=== PATIENT | female | born 1960 | race Caucasian/White ===

== ENCOUNTER → 2018-05-26 15:50 | Outpatient (CLI) | payer OTHER, SELFPAY ==
[2018-05-26 17:33] LABS: Absolute Lymphocyte Count 2.83 X10^3/ul (0.83-4.51); Absolute Neutrophil Count 3.1 X10^3/uL (2.0-7.7); Basophil# 0.04 X10^3/uL; Basophil% 0.6 % (0-1); Eosinophil# 0.22 X10^3/uL; Eosinophils% 3.3 % (0-5); Hematocrit 42.4 % (37-47); Hemoglobin 13.5 g/dl (12.0-15.0); Lymphocyte # 2.83 X10^3/ul (4.0); Lymphocyte % 42.6 % (19-41); Mean Corp Hgb Conc 31.8 g/gl (32-36); Mean Corpuscular Hgb 28.8 pg (27.0-32.0); Mean Corpuscular Volume 90.4 fL (81-99); Mean Platelet Vol. 10.7 fl (6.2-12.0); Monocyte# 0.43 X10^3/uL; Monocyte% 6.5 % (0-10); Neutrophil # 3.12 X10^3/uL (2.7-7.7); Neutrophil % 46.8 % (47-70); Platelet Count 361 K/mm3 (150-450); RBC Distribution Width CV 13.2 % (11.6-14.6); RBC Distribution Width SD 43.1 fl (35.1-43.9); Red Blood Count 4.69 M/mm3 (4.2-5.4); White Blood Count 6.7 K/mm3 (4.4-11.0)
[2018-05-26 17:34] LABS: POSITIVE COUNT NO; POSITIVE DIFFERENTIAL NO; POSITIVE MORPHOLOGY NO
[2018-05-26 17:44] LABS: Anion Gap 9 (5-15); BUN 9 mg/dL (7-18); BUN/Creat Ratio 12.9 RATIO (10-20); Calcium,Total 8.6 mg/dL (8.5-10.1); Chloride 107 mmol/L (98-107); EST Glomerular Filtration Rate 92 mL/min (>60); Est Glom Filt Rate - Afr Amer 111 mL/min (>60); Glucose 114 mg/dL (74-106); Sodium Level 142 mmol/L (136-145); T4 Free Direct 1.33 ng/dL (0.76-1.46); Thyroid Stim Hormone (TSH) 0.26 uIU/mL (0.358-3.74)
== END ==
PROVIDERS: Family Provider Family Medicine; PCP Family Medicine; Visit Provider Family Medicine
DX: E03.9 Hypothyroidism, unspecified (principal); E55.9 Vitamin D deficiency, unspecified; R73.01 Impaired fasting glucose
CPT/HCPCS: 36415; 80048; 82306; 84439; 84443; 85025

== ENCOUNTER → 2018-06-15 15:01 | Outpatient (CLI) | payer OTHER, SELFPAY ==
--- NOTE | 2018-06-15 15:04 | BI_ITS ---
MAMMOGRAPHY - BILATERAL SCREENING REASON FOR EXAM: Female, 58 years old. Routine annual screening examination. PERTINENT HISTORY: Aunt with breast cancer. TECHNIQUE: Digital bilateral breast demian (3D mammographic acquisition) in the CC and MLO projections. 2-D mediolateral oblique (MLO) and craniocaudad (CC) views of both breasts were obtained. CAD: Full Field Digital Mammography with Computer Added Detection was performed. COMPARISON: Comparison is made with prior study dated May 04, 2016 and February 08, 2014. FINDINGS: Breast Composition: There are scattered areas of fibroglandular density. There are no dominant masses or suspicious calcifications. There is a stable 5.4 mm x 5 mm well-defined nodule in the axillary region of the left breast. This most likely represents a small cyst or small lymph node. Stable benign-appearing bilateral axillary lymph nodes. Correlation with ultrasound is recommended. No other significant abnormalities are identified. There has been no significant change since the prior study. BI/SCREENING MAMM (CAD), BILAT IMPRESSION: Stable bilateral screening mammogram. Correlation with ultrasound of the small well-defined nodule in the axillary region of the left breast is recommended for further evaluation. ASSESSMENT CATEGORY: BIRADS Category 6: Known Biopsy-Proven Malignancy - Appropriate Action Should Be Taken. A letter regarding these results will be sent to the patient by the facility within 30 days. Approximately 10% of breast cancers are not detected by mammography. A normal mammogram should not delay biopsy of a clinically suspicious abnormality. [id number] Electronically Signed: Jimbo Blas MD at 8:02 EDT Tel [phone], Service support ,
== END ==
PROVIDERS: Family Provider Family Medicine; PCP Family Medicine; Visit Provider Family Medicine
DX: Z12.31 Encounter for screening mammogram for malignant neoplasm of breast (principal)
CPT/HCPCS: 77063; 77067

== ENCOUNTER → 2018-06-19 15:06 | Outpatient (CLI) | payer OTHER, SELFPAY ==
--- NOTE | 2018-06-19 15:08 | US_ITS ---
STUDY: ULTRASOUND BREAST - LEFT REASON FOR EXAM: Female, 58 years old. Abnormal screening mammogram. TECHNIQUE: Axial and longitudinal images of the LEFT breast were performed with a high resolution ultrasound transducer. COMPARISON: Comparison is made with prior mammogram dated June 15, 2018. FINDINGS: LEFT Breast: The mammographic abnormality corresponds to a 4 mm x 4 mm x 4 mm well-defined hypoechoic nodule with a central echogenic hilum suggestive of a small lymph node. US/Breast Limited Unilateral IMPRESSION: The mammographic abnormality corresponds to a well-defined 4 mm x 4 mm x 4 mm hypoechoic nodule with central area of the increased echotexture suggestive of a small lymph node. ASSESSMENT CATEGORY: BIRADS Category 2: Benign. A letter regarding these results will be sent to the patient by the facility within 30 days. Electronically Signed: Jimbo Blas MD at 15:47 EDT Tel [phone], Service support ,
== END ==
PROVIDERS: Family Provider Family Medicine; PCP Family Medicine; Visit Provider Family Medicine
DX: N63.20 Unspecified lump in the left breast, unspecified quadrant (principal)
CPT/HCPCS: 76642

== ENCOUNTER → 2018-10-06 16:15 | Outpatient (CLI) | payer OTHER, SELFPAY ==
[2018-10-06 18:02] LABS: Absolute Lymphocyte Count 2.84 X10^3/ul (0.83-4.51); Absolute Neutrophil Count 3.9 X10^3/uL (2.0-7.7); Basophil# 0.07 X10^3/uL; Basophil% 0.9 % (0-1); Eosinophil# 0.32 X10^3/uL; Eosinophils% 4.1 % (0-5); Hematocrit 45.1 % (37-47); Hemoglobin 14.8 g/dl (12.0-15.0); Lymphocyte # 2.84 X10^3/ul (4.0); Lymphocyte % 36.6 % (19-41); Mean Corp Hgb Conc 32.8 g/gl (32-36); Mean Corpuscular Hgb 29.1 pg (27.0-32.0); Mean Corpuscular Volume 88.6 fL (81-99); Mean Platelet Vol. 10.7 fl (6.2-12.0); Monocyte# 0.58 X10^3/uL; Monocyte% 7.5 % (0-10); Neutrophil # 3.92 X10^3/uL (2.7-7.7); Neutrophil % 50.4 % (47-70); Platelet Count 402 K/mm3 (150-450); Red Blood Count 5.09 M/mm3 (4.2-5.4); White Blood Count 7.8 K/mm3 (4.4-11.0)
[2018-10-06 18:07] LABS: Hemoglobin A1c 6.5 % (4.2-6.3)
[2018-10-06 18:09] LABS: Anion Gap 10 (5-15); BUN 11 mg/dL (7-18); BUN/Creat Ratio 13.8 RATIO (10-20); Calcium,Total 8.4 mg/dL (8.5-10.1); Chloride 107 mmol/L (98-107); EST Glomerular Filtration Rate 78 mL/min (>60); Est Glom Filt Rate - Afr Amer 95 mL/min (>60); Glucose 108 mg/dL (74-106); Potassium 3.9 mmol/L (3.5-5.1); Sodium Level 142 mmol/L (136-145); T4 Free Direct 1.22 ng/dL (0.76-1.46); Thyroid Stim Hormone (TSH) 0.48 uIU/mL (0.358-3.74)
[2018-10-06 18:16] LABS: POSITIVE COUNT NO; POSITIVE DIFFERENTIAL NO; POSITIVE MORPHOLOGY NO
[2018-10-06 19:21] LABS: Vitamin D,25 Hydroxy 28.1 ng/mL (29.95-100.01)
== END ==
PROVIDERS: Family Provider Family Medicine; PCP Family Medicine; Visit Provider Family Medicine
DX: E03.9 Hypothyroidism, unspecified (principal); E55.9 Vitamin D deficiency, unspecified; R73.01 Impaired fasting glucose; R53.83 Other fatigue
CPT/HCPCS: 36415; 80048; 82306; 83036; 84439; 84443; 85025

== ENCOUNTER → 2019-07-04 14:55 | Outpatient (CLI) | payer OTHER, SELFPAY ==
--- NOTE | 2019-07-04 15:07 | BI_ITS ---
MAMMOGRAPHY - BILATERAL SCREENING REASON FOR EXAM: Female, 59 years old. Routine annual screening examination. PERTINENT HISTORY: Aunt with breast cancer. TECHNIQUE: Digital bilateral breast alyssa (3D mammographic acquisition) in the CC and MLO projections. 2-D mediolateral oblique (MLO) and craniocaudad (CC) views of both breasts were obtained. CAD: Full Field Digital Mammography with Computer Added Detection was performed. COMPARISON: Comparison is made with prior study dated June 15, 2018 and November 04, 2015. FINDINGS: Breast Composition: There are scattered areas of fibroglandular density. There are no dominant masses or suspicious calcifications. Stable appearance of the small bilateral axillary lymph nodes. Stable 5.4 mm x 5 mm well-defined nodule in the axillary region of the left breast. This was demonstrated to be a small lymph node recent sonogram. No other significant abnormalities are identified. There has been no significant change since the prior study. BI/SCREEN MAMM (CAD) W/ALYSSA BILAT IMPRESSION: Stable bilateral screening mammogram. Yearly follow-up mammogram recommended. (A) ASSESSMENT CATEGORY: BIRADS Category 2: Benign. A letter regarding these results will be sent to the patient by the facility within 30 days. Approximately 10% of breast cancers are not detected by mammography. A normal mammogram should not delay biopsy of a clinically suspicious abnormality. [id number] Electronically Signed: Jimbo Blas, at 8:25 EDT , Service support ,
== END ==
PROVIDERS: Family Provider Family Medicine; PCP Family Medicine; Referring Provider Family Medicine; Visit Provider Family Medicine
DX: Z12.31 Encounter for screening mammogram for malignant neoplasm of breast (principal); Z80.3 Family history of malignant neoplasm of breast
CPT/HCPCS: 77063; 77067

== ENCOUNTER → 2019-07-17 14:16 | Outpatient (CLI) | payer OTHER, SELFPAY ==
[2019-07-17 13:44] VITALS: BMI 29.3
--- NOTE | 2019-07-17 14:18 | CT_ITS ---
STUDY: CT CHEST WITHOUT CONTRAST- LOW DOSE SCREENING PROTOCOL REASON FOR EXAM: Female, 59 years old. Former smoker. Quit smoking less than 10 years ago. 30 pack per year history. No current symptoms of lung cancer or pulmonary infection. Shared decision-making with referring PCP documented in patient's record. RADIATION DOSAGE (If Supplied By Facility): CTDIvol = ( 3.02 ) mGy, DLP = ( 99.68 ) mGycm TECHNIQUE: Low dose screening CT examination performed from the base of the neck to the upper abdomen. Sagittal and coronal reformatted images performed. Sagittal and coronal MIP images provided. The measurements provided are average, rounded measurements per ACR guidelines. COMPARISON: None. FINDINGS: Mild emphysematous changes. Azygos lobe which is a normal variant. Normal heart and pericardium. There are calcifications of the coronary arteries. Normal mediastinum. Normal hilar regions. Normal unenhanced pulmonary arteries. There is atherosclerotic calcification of the aortic arch with tortuosity and elongation of the aortic arch and descending thoracic aorta. Normal osseous structures. There is no demonstrated abnormality of the visualized upper abdomen. CT/Low Dose CT Lung Screening IMPRESSION: 1. No significant indeterminate incidental findings requiring additional imaging. 2. Incidental findings include mild emphysema.. ASSESSMENT CATEGORY: LungRADS 1 - Negative. Continue annual screening with LDCT in 12 months, per established ACR guidelines. Electronically Signed: Santi Torres MD at 15:00 EDT Tel , Service support ,
== END ==
PROVIDERS: Family Provider Family Medicine; PCP Family Medicine; Referring Provider Nurse Practitioner Family; Visit Provider Nurse Practitioner Family
DX: Z12.2 Encounter for screening for malignant neoplasm of respiratory organs (principal); Z87.891 Personal history of nicotine dependence
CPT/HCPCS: G0297

== ENCOUNTER → 2019-12-28 15:43 | Outpatient (CLI) | payer OTHER, SELFPAY ==
[2019-07-17 13:44] VITALS: BMI 29.3
[2019-12-28 16:48] LABS: Absolute Lymphocyte Count 2.66 X10^3/uL (0.83-4.51); Absolute Neutrophil Count 3.6 X10^3/uL (2.0-7.7); Basophil# 0.08 X10^3/uL; Basophil% 1.1 % (0-1); Eosinophils% 2.8 % (0-5); Hematocrit 42.9 % (37-47); Lymphocyte # 2.66 X10^3/ul (4.0); Lymphocyte % 37.5 % (19-41); Mean Corp Hgb Conc 32.6 g/dL (32-36); Mean Corpuscular Hgb 29.7 pg (27.0-32.0); Mean Corpuscular Volume 91.1 fL (81-99); Monocyte# 0.57 X10^3/uL; NRBC Flagged by Analyzer 0 % (0-5); Neutrophil # 3.56 X10^3/uL (2.7-7.7); Neutrophil % 50.3 % (47-70); Platelet Count 385 K/mm3 (150-450); RBC Distribution Width CV 12.4 % (11.6-14.6); RBC Distribution Width SD 41.1 fl (35.1-43.9); Red Blood Count 4.71 M/mm3 (4.2-5.4); White Blood Count 7.1 K/mm3 (4.4-11.0)
[2019-12-28 17:25] LABS: Anion Gap 6 (5-15); BUN 10 mg/dL (7-18); BUN/Creat Ratio 13.4 RATIO (10-20); Calcium,Total 8.7 mg/dL (8.5-10.1); Chloride 102 mmol/L (98-107); Creatinine, Serum 0.75 mg/dL (0.55-1.02); EST Glomerular Filtration Rate 84 mL/min (>60); Est Glom Filt Rate - Afr Amer 102 mL/min (>60); Glucose 95 mg/dL (74-106); Potassium 3.7 mmol/L (3.5-5.1); Sodium Level 137 mmol/L (136-145); T4 Free Direct 1.23 ng/dL (0.76-1.46); Thyroid Stim Hormone (TSH) 0.72 uIU/mL (0.358-3.74)
[2019-12-28 17:50] LABS: Vitamin D,25 Hydroxy 64.3 ng/mL
== END ==
LOC: BFHLAB 15:44
PROVIDERS: PCP Family Medicine; Visit Provider Family Medicine
DX: E03.9 Hypothyroidism, unspecified (principal); E55.9 Vitamin D deficiency, unspecified; R73.01 Impaired fasting glucose; R53.83 Other fatigue
CPT/HCPCS: 36415; 80048; 82306; 84439; 84443; 85025

== ENCOUNTER → 2020-07-10 15:18 | Outpatient (CLI) | payer OTHER, SELFPAY ==
[2019-07-17 13:44] VITALS: BMI 29.3
--- NOTE | 2020-07-10 15:21 | BI_ITS ---
MAMMOGRAPHY - BILATERAL SCREENING REASON FOR EXAM: Female, 60 years old. Routine annual screening examination. PERTINENT HISTORY: Aunt with breast cancer. TECHNIQUE: Digital bilateral breast alyssa (3D mammographic acquisition) in the CC and MLO projections. 2-D mediolateral oblique (MLO) and craniocaudad (CC) views of both breasts were obtained. CAD: Full Field Digital Mammography with Computer Added Detection was performed. COMPARISON: Comparison is made with prior examination dated 07/04/2019 and 06/15/2018. FINDINGS: Breast Composition: There are scattered areas of fibroglandular density. There are no dominant masses or suspicious calcifications. Stable benign-appearing bilateral axillary lymph nodes. Stable 5 mm x 5 mm well-defined nodule in the axillary region of the left breast. This was demonstrated to be a small benign lymph node on prior ultrasound. No other significant abnormalities are identified. There has been no significant change since the prior study. BI/SCREEN MAMM (CAD) W/ALYSSA BILAT IMPRESSION: Stable bilateral screening mammogram. Yearly follow-up mammogram recommended. (A) ASSESSMENT CATEGORY: BIRADS Category 2: Benign. A letter regarding these results will be sent to the patient by the facility within 30 days. Approximately 10% of breast cancers are not detected by mammography. A normal mammogram should not delay biopsy of a clinically suspicious abnormality. [id number] Electronically Signed: Jimbo lBas, at 8:10 EDT , Service support ,
== END ==
PROVIDERS: PCP Family Medicine; Referring Provider Family Medicine; Visit Provider Family Medicine
DX: Z12.31 Encounter for screening mammogram for malignant neoplasm of breast (principal)
CPT/HCPCS: 77063; 77067

== ENCOUNTER → 2020-12-11 14:44 | Outpatient (CLI) | payer OTHER, SELFPAY ==
[2019-07-17 13:44] VITALS: BMI 29.3
--- NOTE | 2020-12-11 14:50 | RAD_ITS ---
STUDY: X-RAY CHEST REASON FOR EXAM: Female, 60 years old. CHEST PAIN TECHNIQUE: PA and lateral views of the chest. COMPARISON: Comparison is made with prior study of 12/10/2014. FINDINGS: There is hyperinflation of the lungs consistent with chronic obstructive lung disease (COPD). Scattered calcified granulomas. Azygos lobe. Normal anatomical variant. There is no demonstrated pleural abnormality. Normal size heart. Normal mediastinum and ivy. Normal visualized pulmonary arteries. Normal visualized aortic arch and descending thoracic aorta. There are diffuse degenerative changes of the visualized thoracic spine. Normal visualized ribs, clavicles, and shoulders. There is no demonstrated abnormality of the visualized soft tissue structures of the upper abdomen. RAD/Chest PA and Lateral IMPRESSION: Hyperinflation. The lungs are clear. Electronically Signed: Jimbo Blas MD at 15:38 EST , Service support ,
== END ==
PROVIDERS: PCP Family Medicine; Referring Provider Family Medicine; Visit Provider Family Medicine
DX: I20.9 Angina pectoris, unspecified (principal)
CPT/HCPCS: 71046

== ENCOUNTER → 2020-12-15 06:19 | Outpatient (CLI) | payer OTHER, SELFPAY ==
[2019-07-17 13:44] VITALS: BMI 29.3
--- NOTE | 2020-12-15 16:48 | STRESSREP_ITS ---
Stress Test Report Exercise myocardial perfusion stress test. 60-year-old lady with a history of coronary artery risk factors Stress protocol: Resting EKG demonstrates normal sinus rhythm with a rate of 69 bpm normal intervals are noted resting blood pressure is 1 and 28/80 8 mmHg. The patient exercised according to regular Juan protocol for a total duration of 9 minutes. Patient completed stage III of the Juan protocol the maximum heart rate attained was 157 bpm which was 98% of max impacted heart rate the maximum workload was 10.1 metabolic equivalents. Patient maintained sinus rhythm throughout the recording. At rest there were no ST or T wave changes noted suggest ischemia at peak exercise upsloping EKG changes were noted with no meet the criteria for ischemia. The peak blood pressure was 152/80 mmHg with a rate- pressure product 23,500. The patient did complain of chest heaviness with mild shortness of breath at peak exercise. This eventually resolved at 5 minutes post exercise. Myocardial perfusion protocol. 11.7 mCi of technetium 99m sestamibi was injected at rest. The patient exercised according to regular Juan protocol for total duration of 9 minutes and at peak exercise 33.2 mCi of technetium 99m sestamibi was injected stress images were obtained stress and rest images were reconstructed and compared in the short axis vertical long horizontal long axis. Gated images were also obtained Perfusion SPECT analysis: Review of the images demonstrate normal uptake of tracer noted in all areas of the myocardium the resting images similar demonstrate normal uptake of tracer noted in all areas of the myocardium. No reversibility is noted suggest ischemia no previous infarct is noted. Gated SPECT analysis: The gated ejection fraction is 69%. Conclusion: Exercise myocardial perfusion stress test with no EKG criteria for ischemia at a high workload. Nuclear images demonstrate no evidence of ischemia at a high workload. Chest pain noted of undetermined significance.
== END ==
PROVIDERS: PCP Family Medicine; Referring Provider Family Medicine; Visit Provider Family Medicine
DX: I20.9 Angina pectoris, unspecified (principal)
CPT/HCPCS: 78452; 93017; A9500; A4216

== ENCOUNTER 2021-06-24 06:04 | Inpatient (IN) | payer OTHER, SELFPAY ==
[2021-06-24] VITALS (13 sets, daily range): BP systolic 81–158; BP diastolic 52–97; PULSE 67–89; RESP 14–19; TEMP 36.3–36.8; O2SAT 93–99; BMI 32.3; BMI 31.6
--- NOTE | 2021-06-24 06:16 | EKG12_ITS ---
Test Reason : CP Blood Pressure : / mmHG Vent. Rate : 083 BPM Atrial Rate : 083 BPM P-R Int : 146 ms QRS Dur : 084 ms QT Int : 418 ms P-R-T Axes : 054 013 065 degrees QTc Int : 491 ms Sinus rhythm with frequent Premature ventricular complexes Prolonged QT Abnormal ECG Confirmed by SUPRIYA ONEILL, NIR ([id number]), offline editor CIRO MAGANA ([id number]) on 06/25/2021 10:28:25 AM Referred By: Nir Boone Confirmed By:NIR BOONE MD
--- NOTE | 2021-06-24 06:20 | ED.VIS.CHEST ---
HPI History of Present Illness Chief Complaint: Chest Pain Informant: patient Onset/Context/Timing Onset: Hours (1) Activity at onset: sudden and sleep Timing: Continuous Quality: Positive for Aching and Pain Location: Substernal (With occasional discomfort in left upper extremity, and straight through to back) Current Severity: Severe Maximum Severity: Severe Worsened By: Breathing (A little bit by taking deep breaths but not much); Not Worsened By Exertion, Movement of Arm, Movement of Torso and Palpation Relieved By: Nothing (Sitting up, lying down no different) Associated Symptoms: Positive for Nausea, Diaphoresis and Dyspnea; Negative for Cough, Fever, Lightheadedness, Acid Reflux and Palpitations Narrative Narrative: Woke up an hour ago with this discomfort. Nonlateralizing chest discomfort. Radiates down toward the epigastrium as well. Left upper extremity was bothering her a little earlier but not as much now, she felt sweaty, shortness of breath and nauseated. No recent illness or Covid. She was vaccinated. She takes baby aspirin daily and levothyroxine and no other medications. She stopped smoking long ago. In 2011 she had a heart cath here for chest pain work-up, she had angiographically normal coronary arteries. She had a stress test earlier this year that was negative. She does not use any illicit substances such as cocaine. [facility] Medical History Amputated finger Former smoker H/O Nely thyroiditis History of left heart catheterization Hypothyroidism Impaired fasting glucose Vitamin D deficiency Home Medications ergocalciferol (vitamin D2) 50,000 unit PO Q7D 07/16/19 [History Last Taken Unknown] levothyroxine 112 mcg PO DAILY 07/16/19 [History Last Taken Unknown] metformin 500 mg PO BIDCM 07/16/19 [History Last Taken Unknown] Allergy/AdvReac Type Severity Reaction Status Date / Time gabapentin [From Neurontin] Allergy Severe Other Verified 06/24/21 06:08 Family History (Updated 07/17/19 @ 13:41 by Gilma Mason) Mother Hypertension Thyroid disorder Diabetes CVA (cerebral vascular accident) Skin cancer Father Hypertension Diabetes Parkinson disease Sister Hypertension Diabetes Scleroderma CHF (congestive heart failure) connective tissue disease Surgical History H/O total hysterectomy Social History Smoking Status: Former smoker quit date: 10/10/11 pack-years: 30 Tobacco: How many years used: 30 Electronic Cigarette Use: not used how long ago did patient quit smokin years second hand exposure: Yes quit status: quit date established counseling given: provider counseling ROS ROS ED Constitutional Constitutional ED: Denies chills or fever(s) Eyes Eyes: Denies change in vision or diplopia ENT ENT ED: Denies rhinorrhea or sore throat Cardiovascular Cardiovascular: Reports as per HPI and chest pain; Denies palpitations Respiratory/Chest Respiratory/Chest: Reports as per HPI and dyspnea; Denies cough Gastrointestinal Gastrointestinal: Reports nausea; Denies abdominal pain, diarrhea or vomiting Genitourinary Genitourinary ED: Denies dysuria or hematuria Musculoskeletal Musculoskeletal: Denies back pain or neck pain Integumentary Denies abscess or rash Neurologic Neurologic: Denies headache(s), paresthesias or weakness Psychiatric Psychiatric: Denies anxiety or suicidal thoughts EXAM Physical Exam Const Vital Signs: 06/24/21 06:05 06/24/21 06:08 06/24/21 06:44 Temperature 97.3 F L Temperature Source Temporal Pulse Rate 78 Respiratory Rate 14 Respiratory Effort Normal Respiratory Pattern Normal Blood Pressure 158/97 H Blood Pressure Mean 117 Pulse Ox 99 98 Oxygen Delivery Method Room Air Room Air Oxygen Flow Rate (L/min) 06/24/21 07:05 06/24/21 07:29 06/24/21 07:33 Temperature Temperature Source Pulse Rate 82 86 83 Respiratory Rate 18 19 H Respiratory Effort Respiratory Pattern Blood Pressure 146/93 H 137/75 H 134/69 H Blood Pressure Mean 110 90 Pulse Ox 96 98 Oxygen Delivery Method Room Air Nasal Cannula Oxygen Flow Rate (L/min) 2 Positive well nourished and well developed General Appearance ED: well developed and NAD HEENT Reports moist mucous membranes normocephalic and atraumatic Eyes PERRL and EOMs intact bilaterally Neck full ROM and supple Resp normal respiratory effort and clear to auscultation bilaterally Cardio regular rate, regular rhythm and no murmurs Rate: Negative for tachycardic GI non-tender and non-distended Auscultation: normoactive bowel sounds Palpation: soft Back/Spine no CVA tenderness General Back: other FROM Extremity normal to inspection and no calf tenderness General Extremety ED: Negative for edema, pulses abnormal or tenderness General Extremity: Negative for edema or pulses abnormal Neuro oriented x3, CN's II-XII intact bilaterally and no sensory deficits noted Sensorium / Orientation: awake and alert Motor Exam: strength 5/5 throughout Skin no rashes or lesions noted and no wounds MDM MDM MDM Narrative Medical decision making narrative: Given her cath 7 years ago with normal coronaries, lack of other risk factors, initially tried a GI cocktail but it did not help her pain, which then became worse and she was sitting on the side of the bed in painful distress. Repeat EKG was obtained, she was given nitroglycerin, morphine, aspirin. It was noted that her high-sensitivity troponin is just barely elevated. Repeat EKG unchanged. Morphine helped her pain, nitro even more, down to 1/10. Definitely concerned about this patient's syndrome here, especially since her troponin is elevated with only just an hour of pain. Discussed with cardiology, Dr. Boone --advises hold off on heparin, they will take her to the [facility] from the ED to evaluate. Lab Data Attestation: I reviewed the patient's lab results. Labs: Laboratory Results - last 24 hr 06/24/21 06/24/21 06:00 06:00 WBC 7.1 RBC 5.07 Hgb 15.0 Hct 47.1 H MCV 92.9 MCH 29.6 MCHC 31.8 L RDW Std Deviation 42.5 RDW Coeff of Nickie 12.5 Plt Count 380 MPV 10.0 Immature Gran % (Auto) 0.300 Neut % (Auto) 58.1 Lymph % (Auto) 30.9 [place] % (Auto) 7.2 Eos % (Auto) 2.4 Baso % (Auto) 1.1 H Absolute Neuts (auto) 4.1 Absolute Lymphs (auto) 2.19 Nucleated RBC % 0 Sodium 141 Potassium 3.9 Chloride 108 H Carbon Dioxide 29.0 Anion Gap 4 L BUN 13 Creatinine 0.72 Estim Creat Clear Calc 67.02 Est GFR (MDRD) Af Amer 106 Est GFR (MDRD) Non-Af 88 BUN/Creatinine Ratio 18.1 Glucose 131 H Calcium 8.7 Troponin I High Sens 69 H EKG Initial EKG: Attestation: I personally reviewed and interpreted this EKG as follows: Interpretation: Sinus Rhythm and No Acute Injury Pattern Comments: pvcs Prior EKG tracings: available for review (descriptions only, no EKG able to visualized) Follow-up EKG: Attestation: I personally reviewed and interpreted this EKG as follows: Interpretation: Sinus Rhythm and No Acute Injury Pattern Comments: Frequent PVCs Prior: Unchanged Critical Care Time Critical Care Time: Yes Critical care time (excluding procedures): 30-74 minutes (34 min), Including time spent:, Discussing w/Patient &/or Family/Security Tester, Discussing w/Consultants, Arranging Admission or Transfer and Performing Direct Patient Care at Bedside Discharge Plan Dx/Rx/DC Orders Clinical Impression: Unstable angina Disposition Disposition: Acute Care Hospital [facility]
[2021-06-24 06:21] LABS: Absolute Lymphocyte Count 2.19 X10^3/uL (0.83-4.51); Absolute Neutrophil Count 4.1 X10^3/uL (2.0-7.7); Basophil# 0.08 X10^3/uL; Basophil% 1.1 % (0-1); Eosinophil# 0.17 X10^3/uL; Eosinophils% 2.4 % (0-5); Hematocrit 47.1 % (37-47); Lymphocyte # 2.19 X10^3/ul (0.83-4.51); Lymphocyte % 30.9 % (19-41); Mean Corp Hgb Conc 31.8 g/dL (32-36); Mean Corpuscular Hgb 29.6 pg (27.0-32.0); Mean Corpuscular Volume 92.9 fL (81-99); Monocyte# 0.51 X10^3/uL; Monocyte% 7.2 % (0-10); NRBC Flagged by Analyzer 0 % (0-5); Neutrophil # 4.11 X10^3/uL (2.7-7.7); Neutrophil % 58.1 % (47-70); Platelet Count 380 K/mm3 (150-450); RBC Distribution Width CV 12.5 % (11.6-14.6); RBC Distribution Width SD 42.5 fl (35.1-43.9); Red Blood Count 5.07 M/mm3 (4.2-5.4); White Blood Count 7.1 K/mm3 (4.4-11.0)
[2021-06-24] MEDS: Mag Hydrox/Al Hydrox/Simeth 30 ML UDC PO (06:21)
--- NOTE | 2021-06-24 06:25 | RAD_ITS ---
STUDY: X-RAY CHEST REASON FOR EXAM: Female, 61 years old. Chest pain TECHNIQUE: Single AP portable view of the chest. COMPARISON: December 11, 2020 chest x-ray FINDINGS: There is a stable focus of lingular density suggesting atelectasis or scarring. There is no demonstrated pleural abnormality. Normal size heart. Normal mediastinum and ivy. Normal visualized pulmonary arteries. There is atherosclerotic calcification of the aortic arch with tortuosity. There are diffuse degenerative changes of the visualized thoracic spine. Normal visualized ribs, clavicles, and shoulders. There is no demonstrated abnormality of the visualized soft tissue structures of the upper abdomen. RAD/Chest 1 View (Portable) IMPRESSION: Stable chest, no visualized acute focal infiltrate. Electronically Signed: Emily Noe MD at 7:55 EDT Tel , Service support ,
[2021-06-24 06:43] LABS: Anion Gap 4 (5-15); BUN 13 mg/dL (7-18); BUN/Creat Ratio 18.1 RATIO (10-20); Calcium,Total 8.7 mg/dL (8.5-10.1); Chloride 108 mmol/L (98-107); Creatinine, Serum 0.72 mg/dL (0.55-1.02); EST Glomerular Filtration Rate 88 mL/min (>60); Est Glom Filt Rate - Afr Amer 106 mL/min (>60); Estimated Creatinine Clearance 67.02 ml/min; Glucose 131 mg/dL (74-106); Potassium 3.9 mmol/L (3.5-5.1); Sodium Level 141 mmol/L (136-145); Troponin-I HS 69 pg/mL (3.0-54.0)
--- NOTE | 2021-06-24 07:16 | EKG12_ITS ---
Test Reason : REPEAT Blood Pressure : / mmHG Vent. Rate : 081 BPM Atrial Rate : 081 BPM P-R Int : 114 ms QRS Dur : 076 ms QT Int : 416 ms P-R-T Axes : 000 008 048 degrees QTc Int : 483 ms Sinus rhythm with frequent Premature ventricular complexes Nonspecific ST and T wave abnormality Abnormal ECG Confirmed by SUPRIYA ONEILL, NIR ([id number]), slot editor CIRO MAGANA ([id number]) on 06/25/2021 10:28:38 AM Referred By: Nir Boone Confirmed By:NIR BOONE MD
[2021-06-24] MEDS: Aspirin 81 MG TAB.CHEW 162 MG PO (07:24)
[2021-06-24] MEDS: Morphine 4 MG/ML Syringe IV (07:25)
[2021-06-24] MEDS: Nitroglycerin SL (ED/IMG/CATH) 0.4 MG TABLET SL (07:29)
--- NOTE | 2021-06-24 07:38 | NURSING ---
HOSPITALIST PAGED CARDIOLOGY PAGED
[2021-06-24] MEDS: Ondansetron 4 MG/2 ML Vial IV (07:39)
--- NOTE | 2021-06-24 07:40 | NURSING ---
DR EPPS FOR DR AGUDELO
[2021-06-24] MEDS: 0.9% Normal Saline 1,000 ML 999 ML IV (07:49)
--- NOTE | 2021-06-24 07:52 | ED.RN ---
REPORT TO NEREYDA BLANKENSHIP FROM VISUAL MERCHANDISING ASSISTANT. PT SKIN P/W/D, RESP EVEN AND UNLABORED, PT A&O X 3, NO DISTRESS NOTED. PT TRANSPORTED TO [facility]ISUAL MERCHANDISING ASSISTANT BY NEREYDA BALNKENSHIP.
--- NOTE | 2021-06-24 07:55 | NURSING ---
DR PETERSON FOR DR AGUDELO
--- NOTE | 2021-06-24 08:17 | PCM.CONS.C ---
Assessment & Plan Assessment/Plan (1) Unstable angina: PLAN: Patient presents with chest discomfort suggestive of unstable angina. She has had previous stress tests which have been unremarkable. With her continuing and unrelenting chest discomfort it was felt that she should undergo an urgent left heart catheterization. The risk benefits and alternatives have been explained to her she understands and agrees to proceed. Depending on the findings further recommendations will be made. Addendum: Left heart catheterization demonstrated essentially normal coronary arteries and a normal aortic root size. The patient however continues to complain of chest discomfort and so would suggest a CT scan of her chest to exclude any pulmonary issues. If the above are unremarkable then I would recommend upper GI evaluation. addendum: Ct scan showed pancreatitis and gall bladder disease. Will defer to hospitalist. Thank you for allowing me to participate in the care of your patient. Please don't hesitate to call if any issues arise. HPI Consult Data Date of Consult: 06/24/21 HPI Narrative HPI Narrative: MARTÍN CARD, is a 61 F who presents to the emergency room with chest discomfort which he describes as pressure-like sensation in the epigastrium and radiating across the chest. She got sweaty as well as with shortness of breath and nausea. She has had no recent fever or illness such as Covid she was vaccinated she does take a baby aspirin daily. She is not a known hypertensive and is a borderline diabetic. She has had no dizziness or diaphoresis near syncope or syncope. She presented to the emergency room and was noted to have frequent premature ventricular complexes. Cardiology was called for further evaluation and management. She continues to have the chest discomfort. Her high-sensitivity troponin was noted to be in the moderate range. [facility] Medical History Amputated finger Former smoker H/O Nely thyroiditis History of left heart catheterization Hypothyroidism Impaired fasting glucose Vitamin D deficiency Home Medications ergocalciferol (vitamin D2) 50,000 unit PO Q7D 07/16/19 [History Last Taken Unknown] levothyroxine 112 mcg PO DAILY 07/16/19 [History Last Taken Unknown] metformin 500 mg PO BIDCM 07/16/19 [History Last Taken Unknown] Allergy/AdvReac Type Severity Reaction Status Date / Time gabapentin [From Neurontin] Allergy Severe Other Verified 06/24/21 06:08 Family History Mother Hypertension Thyroid disorder Diabetes CVA (cerebral vascular accident) Skin cancer Father Hypertension Diabetes Parkinson disease Sister Hypertension Diabetes Scleroderma CHF (congestive heart failure) connective tissue disease Surgical History H/O total hysterectomy Social History Smoking Status: Former smoker quit date: 10/10/11 pack-years: 30 Tobacco: How many years used: 30 Electronic Cigarette Use: not used how long ago did patient quit smokin years second hand exposure: Yes quit status: quit date established counseling given: provider counseling ROS Constitutional Constitutional: Denies fever(s) or weight loss Eyes Eyes: Reports systems reviewed and no addt'l complaints, except as documented ENT HEENT: Reports systems reviewed and no addt'l complaints, except as documented Cardiovascular Cardiovascular: Reports chest pain at rest and chest pain with activity; Denies dyspnea at rest, dyspnea on exertion, edema, palpitations or paroxysmal nocturnal dyspnea Respiratory/Chest Respiratory/Chest: Denies dyspnea on exertion, productive cough, shortness of breath at rest or shortness of breath with exertion Gastrointestinal Gastrointestinal: Denies change in bowel habits, nausea, vomiting or weight changes Genitourinary Genitourinary: Denies difficulty urinating Musculoskeletal Musculoskeletal: Denies joint stiffness or muscle weakness Integumentary Integumentary: Denies lesions Neurologic Neurologic: Denies dizziness or syncope Psychiatric Psychiatric: Denies anxiety Endocrine Endocrinology: Denies excessive sweating or fatigue Hematologic/Lymphatic Hematologic/Lymphatic: Denies anemia Allergic/Immunologic Allergic/Immunologic: Denies seasonal rhinorrhea Physical Exam Const alert, oriented x3 and no apparent distress General Appearance: cooperative HEENT hearing grossly normal bilaterally Head and Scalp: atraumatic Eyes EOMs intact bilaterally Neck General: normal visual inspection Chest inspection of chest normal and palpation of chest normal Resp normal respiratory effort Auscultation: clear to auscultation bilaterally Cardio regular rate, regular rhythm, S1 normal heart sound and S2 normal heart sound Jugular Venous Distention: JVD GI normal to inspection, nondistended, normoactive bowel sounds Extremity normal capillary refill and no pedal edema Peripheral Pulses: Yes pulses 2+ throughout and femoral pulses present Skin no rashes or lesions noted Neuro oriented x3 and CN's II-XII intact bilaterally Psych Appearance: grossly normal and appropriate Objective Data Vital Signs: Vital Signs Temp Pulse Resp BP Pulse Ox 97.3 F L 89 19 H 81/52 L 98 06/24/21 06:05 06/24/21 07:40 06/24/21 07:33 06/24/21 07:40 06/24/21 07:33 Oxygen Flow Rate (L/min) 2 Oxygen Delivery Method Nasal Cannula Weight: 182 lb 5.156 oz Body Mass Index (BMI) 32.3 Lab / Micro Data Result Diagrams: 06/24/21 06:00 06/24/21 06:00 Labs: Laboratory Results - last 24 hr 06/24/21 06:00: WBC 7.1, RBC 5.07, Hgb 15.0, Hct 47.1 H, MCV 92.9, MCH 29.6, MCHC 31.8 L, RDW Std Deviation 42.5, RDW Coeff of Nickie 12.5, Plt Count 380, MPV 10.0, Immature Gran % (Auto) 0.300, Neut % (Auto) 58.1, Lymph % (Auto) 30.9, [place] % (Auto) 7.2, Eos % (Auto) 2.4, Baso % (Auto) 1.1 H, Absolute Neuts (auto) 4.1, Absolute Lymphs (auto) 2.19, Nucleated RBC % 0 06/24/21 06:00: Sodium 141, Potassium 3.9, Chloride 108 H, Carbon Dioxide 29.0, Anion Gap 4 L, BUN 13, Creatinine 0.72, Estim Creat Clear Calc 67.02, Est GFR (MDRD) Af Amer 106, Est GFR (MDRD) Non-Af 88, BUN/Creatinine Ratio 18.1, Glucose 131 H, Calcium 8.7, Troponin I High Sens 69 H Cardiology Labs/Tests 06/24/21 06:00: WBC 7.1, RBC 5.07, Hgb 15.0, Hct 47.1 H, MCV 92.9, MCH 29.6, MCHC 31.8 L, Plt Count 380, MPV 10.0, Immature Gran % (Auto) 0.300, Neut % (Auto) 58.1, Lymph % (Auto) 30.9, [place] % (Auto) 7.2, Eos % (Auto) 2.4, Baso % (Auto) 1.1 H, Absolute Neuts (auto) 4.1, Nucleated RBC % 0 06/24/21 06:00: Sodium 141, Potassium 3.9, Chloride 108 H, Carbon Dioxide 29.0, Anion Gap 4 L, BUN 13, Creatinine 0.72, Est GFR (MDRD) Af Amer 106, Est GFR (MDRD) Non-Af 88, BUN/Creatinine Ratio 18.1, Glucose 131 H, Calcium 8.7 Rhythm: EKG: Normal sinus rhythm with frequent premature ventricular complexes. ECHO: Stress Test: Cardiac Cath: PCI: CT Surgery: Holter monitor: EPS: PPM: CXR: Chest CT Scan: Radiography Diagnostic Testing: Radiology Impression Chest X-Ray 06/24/21 06:25 IMPRESSION: Stable chest, no visualized acute focal infiltrate. Electronically Signed: Emily Noe MD at 7:55 EDT Tel , Service support ,
--- NOTE | 2021-06-24 09:07 | CT_ITS ---
STUDY: CTA CHEST REASON FOR EXAM: Female, 61 years old. Chest pain, right upper abdomen pain, former smoker, heart cath this morning. RADIATION DOSAGE (If Supplied By Facility): CTDIvol = ( 11.20 ) mGy, DLP = ( 44.55 ) mGycm TECHNIQUE: The examination was performed with the intravenous administration of IV 100mL Isovue-370. Post-processing of the angiographic images was performed, with multiplanar reformation and 3D reconstruction. Individualized dose optimization techniques were used for this CT. COMPARISON: None. FINDINGS: Normal enhancement of the main pulmonary artery and right and left pulmonary arteries. Normal enhancement of the bilateral peripheral pulmonary arteries. There is no demonstrated pulmonary embolism. Normal thoracic aorta and visualized great vessels. There is no demonstrated aortic dissection. Normal heart and pericardium. Normal mediastinum. Normal hilar regions. Normal visualized trachea and bronchi. Hyperinflation. Diffuse emphysematous changes with evidence of scarring and subpleural blebs. This is worse in the lower lobes. There is superimposed mild degree of atelectasis. Normal pleura. Normal chest wall structures. Normal osseous structures. There is diffuse enlargement of the pancreas with increased markings in the surrounding fat as well as thickening of the left pararenal space suggestive of acute pancreatitis. Small amount of fluid is seen in the left anterior pararenal space. There is evidence of a pericholecystic fluid as well as thickening of the gallbladder wall. Findings suggestive of possible gallstones. CT/CTA Chest W/WO Contrast IMPRESSION: No evidence of pulmonary embolism. Findings in keeping with the scarring and atelectasis at the lung bases. Findings suggestive of acute pancreatitis. Gallbladder wall thickening with pericholecystic fluid and findings suggestive of possible gallstones within the gallbladder lumen. Electronically Signed: Jimbo Blas MD at 9:45 EDT , Service support ,
--- NOTE | 2021-06-24 09:17 | CL.D_ITS ---
Patient Name: MARTÍN CARD Study Date: 06/24/2021 Performing: Nir Boone MD Ht: 63 inches 160 cm : 1960 Wt: 183.2 lbs 83 kg Age: 61 Gender: female BSA: 1.86 PROCEDURE(S) PERFORMED DC11-AO ROOT ANGIO WITH HEART CATH [id number]-YGB/COR CLINICAL PROFILE AND INDICATIONS Indications: Suspected CAD Heart Failure: None Stress/Imaging Stress/Image Study Performed: No CAD Presentations: Unstable angina. CONCLUSIONS Normal coronary arteries RECOMMENDATIONS Will look for noncoronary etiology of chest pain. DESCRIPTION OF PROCEDURE The patient arrived to the procedure lab. The risks and benefits of the procedure as well as a full d escription of our services here and current unavailability of surgical backup were fully explained to the patient and/or their significant other prior to the catheterization. The Timeout was completed, verifying the correct patient and procedure. The patient's procedural site was prepped and draped in the usual fashion. Local anesthetic was given subcutaneously to right radial region with Lidocaine 2% . Using a modified Seldinger technique, arterial access was obtained via the right radial artery, a 6 Fr sheath was inserted. Left Coronary Artery selective angiography was performed in multiple views u sing a 5 Fr. 4.0 [place] catheter. Right Coronary Artery selective angiography was then performed in mu ltiple views using a 5 Fr. 4.0 [place] catheter. Left Coronary Artery selective angiography was perform ed in multiple views using a 5 Fr. JL4 catheter. Ascending (root) aorta selective angiography was then performed in single view. Ascending (root) aorta selective angiography was then performed in single view.The arterial sheath was pulled and a TR Band was applied for hemostasis. 10c c of air applied CORONARY ANGIOGRAPHY DOMINANCE: Right Dominant LEFT HEART ASSESSMENT Left Ventricular Ejection Fraction: by Echo 55 % Normal LV wall motion Normal Left Ventricular systolic function Normal Left Ventricular systolic function LEFT MAIN: Angiographically normal LEFT ANTERIOR DESCENDING ARTERY: Angiographically normal CIRCUMFLEX ARTERY: Angiographically normal RIGHT CORONARY ARTERY: Angiographically normal COMPLICATIONS No Complications PROCEDURE MEDICATIONS Fentanyl 50 mcg IV Versed 1 mg IV Fentanyl 25 mcg IV Oxygen: 2 L/min via nasal cannula Heparin given IA 06/24/2021 08:33:46 Verapamil 2.5mg, Ntg 100mcgs, 3000 units of Heparin given IA 06/24/2021 08:33:46 SUMMARY OF HEMODYNAMIC DATA Time AIR REST ECG 08:21:54 AO 129/81 (102) SA 08:37:33 AO 154/75 (105) 08:59:26 Signed By Nir Boone MD On 06/24/2021 09:16:08 Nir Boone MD
--- NOTE | 2021-06-24 10:01 | HP.PCM.HOS_ITS ---
HPI - General HPI Narrative MARTÍN CARD, is a 61 F with past medical history as listed below came to ER with midsternal/lower chest pain with left arm numbness that woke her up at 5 AM. She denies shortness of breath. She had previous stress test which was unremarkable. Her isolated troponin was also elevated. Patient was taken to [facility] and found normal coronary arteries and subsequently she had chest CT angiogram which showed no evidence of pulmonary embolism but findings suggestive of acute pancreatitis. GB wall thickening with pericholecystic fluid findings possible gallstone within the gallbladder lumen suggestive of gallbladder pancreatitis. Lipase is ordered. Patient blood pressure initially was low but is now improved. [facility] Medical History Amputated finger Former smoker H/O Nely thyroiditis History of left heart catheterization Hypothyroidism Impaired fasting glucose Vitamin D deficiency Home Medications ergocalciferol (vitamin D2) 50,000 unit PO Q7D 07/16/19 [History Last Taken Unknown] levothyroxine 112 mcg PO DAILY 07/16/19 [History Last Taken Unknown] metformin 500 mg PO BIDCM 07/16/19 [History Last Taken Unknown] Allergy/AdvReac Type Severity Reaction Status Date / Time gabapentin [From Neurontin] Allergy Severe Other Verified 06/24/21 06:08 Family History Mother Hypertension Thyroid disorder Diabetes CVA (cerebral vascular accident) Skin cancer Father Hypertension Diabetes Parkinson disease Sister Hypertension Diabetes Scleroderma CHF (congestive heart failure) connective tissue disease Surgical History H/O total hysterectomy Social History Smoking Status: Former smoker quit date: 10/10/11 pack-years: 30 Tobacco: How many years used: 30 Electronic Cigarette Use: not used how long ago did patient quit smokin years second hand exposure: Yes quit status: quit date established counseling given: provider counseling ROS ROS Narrative Constitutional: Reports pain as mentioned in HPI HEENT: Reports systems reviewed and no addt'l complaints, except as documented Respiratory/Chest: Lower sternal/epigastric chest pain. No shortness of breath. Gastrointestinal: denies coffee ground emesis, hematemesis or vomiting Genitourinary: Denies burning urination or new urinary tract symptoms Musculoskeletal: Reports joint pain and limited range of motion Neurologic: Denies seizure-like activity skin: No ulcer. No rash Endocrinology: Reports systems reviewed and no addt'l complaints, except as documented Hematologic/Lymphatic: Reports systems reviewed and no addt'l complaints, except as documented Rest 12 ROS are negative except as mentioned in HPI Vital Signs Vital Signs Vital Signs: 06/24/21 06:05 06/24/21 06:08 06/24/21 06:44 Temperature 97.3 F L Temperature Source Temporal Pulse Rate 78 Respiratory Rate 14 Respiratory Effort Normal Respiratory Pattern Normal Blood Pressure 158/97 H Blood Pressure Mean 117 Pulse Ox 99 98 Oxygen Delivery Method Room Air Room Air Oxygen Flow Rate (L/min) 06/24/21 07:05 06/24/21 07:29 06/24/21 07:33 Temperature Temperature Source Pulse Rate 82 86 83 Respiratory Rate 18 19 H Respiratory Effort Respiratory Pattern Blood Pressure 146/93 H 137/75 H 134/69 H Blood Pressure Mean 110 90 Pulse Ox 96 98 Oxygen Delivery Method Room Air Nasal Cannula Oxygen Flow Rate (L/min) 2 06/24/21 07:40 Temperature Temperature Source Pulse Rate 89 Respiratory Rate Respiratory Effort Respiratory Pattern Blood Pressure 81/52 L Blood Pressure Mean Pulse Ox Oxygen Delivery Method Oxygen Flow Rate (L/min) Weight Weight: 182 lb 5.156 oz Body Mass Index (BMI) 32.3 Physical Exam Narrative General: Alert, Oriented x3, Cooperative HEENT: Atraumatic, PERRLA, EOMI, Normocephalic Oral: No Gingival or Mucosal Lesions/ Ulcerations Neck: Supple, No JVD, Negative Carotid Bruits Lungs: Air entry equal in bilateral lung bases. No crepitation/rhonchi Cardiovascular: Sinus rhythm with PVCs, Normal S1, Normal S2, No murmurs Abdomen: Tenderness around the xiphisternum and epigastrium. Bowel Sounds Present, soft, nondistended. : No renal angle tenderness. No suprapubic tenderness. Extremities: No edema, Capillary Refill Less than 3 Seconds Skin: No rashes, No breakdown Musculoskeletal: No Tenderness to Palpation of Joints or Extremities Neurological: Cranial nerves II-XII grossly intact, DTR 2+/4 and Symmetrical, Neuro grossly intact Psych/Mental Status: Normal Affect, Appropriate. Results Lab / Micro Data Result Diagrams: 06/24/21 06:00 06/24/21 06:00 Labs: Laboratory Results - last 24 hr 06/24/21 06:00: WBC 7.1, RBC 5.07, Hgb 15.0, Hct 47.1 H, MCV 92.9, MCH 29.6, MCHC 31.8 L, RDW Std Deviation 42.5, RDW Coeff of Nickie 12.5, Plt Count 380, MPV 10.0, Immature Gran % (Auto) 0.300, Neut % (Auto) 58.1, Lymph % (Auto) 30.9, [place] % (Auto) 7.2, Eos % (Auto) 2.4, Baso % (Auto) 1.1 H, Absolute Neuts (auto) 4.1, Absolute Lymphs (auto) 2.19, Nucleated RBC % 0 06/24/21 06:00: Sodium 141, Potassium 3.9, Chloride 108 H, Carbon Dioxide 29.0, Anion Gap 4 L, BUN 13, Creatinine 0.72, Estim Creat Clear Calc 67.02, Est GFR (MDRD) Af Amer 106, Est GFR (MDRD) Non-Af 88, BUN/Creatinine Ratio 18.1, Glucose 131 H, Calcium 8.7, Troponin I High Sens 69 H Radiology Impression Chest X-Ray 06/24/21 06:25 IMPRESSION: Stable chest, no visualized acute focal infiltrate. Electronically Signed: Emily Noe MD at 7:55 EDT Tel , Service support , Chest CTA 06/24/21 09:07 IMPRESSION: No evidence of pulmonary embolism. Findings in keeping with the scarring and atelectasis at the lung bases. Findings suggestive of acute pancreatitis. Gallbladder wall thickening with pericholecystic fluid and findings suggestive of possible gallstones within the gallbladder lumen. Electronically Signed: Jimbo Blas MD at 9:45 EDT , Service support , Assessment & Plan Assessment/Plan (1) Gallstone pancreatitis: PLAN: This 61-year-old [place] woman came to ER for lower midsternal chest pain with left arm numbness and found to have gallstone pancreatitis on further work-up. 1. Acute gallstone pancreatitis: [facility] Blood pressure and heart rate is normal. Lipase came 17,972. Clinical and CT scan finding discussed with surgeon Dr Thompson. Liver profile pending. IV fluid Ringer lactate at 150 mils per hour. NPO. CT abdomen individually revie wed and shows GB wall thickening, pericholecystic fluid and gallstones in gallbladder lumen. Patient might need GI consult for ERCP if cholestatic enzymes especially total bilirubin is elevated 2. Atypical chest pain probably due to pancreatitis: Cardiac cath showed normal coronary arteries. Troponin elevated 69 on high normal side probably false positive or acute pancreatitis. 3. Nely's thyroiditis, hypothyroidism, former smoker/impaired fasting glucose: Glucose is 131. A1c ordered for tomorrow a.m. VTE prophylaxis, moderate risk: Lovenox 40 mg subcu daily after 24 hours of cardiac cath. Bilateral SCDs Living will/advanced directive/end of life care: Patient does have living will or advanced directive. Her is power of tax associate attorney for health. After discussion of benefits/risks procedures involved with full code, DNR CC arrest and DNR CC, the patient opted for full code. Patient does want artificial life support including intubation, tube feed, ventilator and/chest compression, central venous catheter, vasopressor and DC shock if needed Total time spent in [id number] encounter in discussion of advanced directive 16 minutes. Chest CTA 06/24/21 09:07
[2021-06-24 11:46] LABS: Lipase 17972 U/L (73-393); Magnesium 2.2 mg/dL (1.6-2.6)
[2021-06-24 12:03] LABS: AST(SGOT) 377 U/L (15-37); Alanine Aminotransfer ALT/SGPT 299 U/L (13-56); Albumin, Serum 3.5 g/dL (3.2-5.0); Alkaline Phosphatase 141 U/L (45-117); Bilirubin, Direct 0.16 mg/dL (0.00-0.30); Globulin 3.4 g/dL (2.2-4.2); Protein, Total 6.9 g/dL (6.4-8.2)
--- NOTE | 2021-06-24 12:13 | CON.PCM.SX_ITS ---
Assessment & Plan Assessment/Plan (1) Gallstone pancreatitis: PLAN: Findings are most consistent with gallstone pancreatitis. On my review of the CTA it looks like she has a dilated common bile duct. Is noted the pancreas diffusely enlarged. The patient is distended and uncomfortable. Gallbladder is markedly abnormal as well however a leukocytosis not identified. I am recommending gallbladder ultrasound. The patient will benefit by a laparoscopic cholecystectomy with cholangiograms and possible laparoscopic common bile duct exploration versus delayed ERCP. Based upon: Her current degree of discomfort and distention and abnormal laboratory surgery likely will need to be delayed while resuscitation continues. Will await results of the ultrasound. Appreciate the opportunity of assisting with her surgical care. Del Lugo M.D., F.A.C.S. HPI Consult Data Date of Consult: 06/24/21 HPI Narrative HPI Narrative: MARTÍN CARD, is a 61 F who presents with acute epigastric pain woke her from sleep. She had had a previous fatty food meal. 2 years ago she had had a normal heart catheterization. Previously she had had a normal stress test. On her presentation her white blood cell count of 7.1 with a hemoglobin 15 hematocrit 47 and a platelet count of 380,000. BUN is 13 and creatinine 0.72. Glucose 131. AST 377 and an ALT of 299 and an alkaline phosphatase of 141. Troponin elevated at 69. Lipase 17,972. There was concern that she had acute coronary problems and so she ended up having a heart cath. This did not demonstrate any hemodynamically significant disease. Because of the patient's ongoing complaints of chest pain she had a CTA of the chest. This showed no pulmonary embolus. No aortic dissection. Diffuse emphysema noted worse in the lower lobes. Diffuse enlargement of the pancreas with increased markings in the surrounding fat as well as thickening of the left pararenal space suggestive of acute pancreatitis. Small amount of fluid in the left anterior perirenal space. Pericholecystic fluid thickening of the gallbladder wall. Possible gallstones. [facility] Medical History Amputated finger Former smoker H/O Nely thyroiditis History of left heart catheterization Hypothyroidism Impaired fasting glucose Vitamin D deficiency Home Medications ergocalciferol (vitamin D2) 50,000 unit PO Q7D 07/16/19 [History Last Taken Unknown] levothyroxine 112 mcg PO DAILY 10/07/19 [History Last Taken Unknown] metformin 500 mg PO BIDCM 07/16/19 [History Last Taken Unknown] Allergy/AdvReac Type Severity Reaction Status Date / Time gabapentin [From Neurontin] Allergy Severe Other Verified 06/24/21 06:08 Family History Mother Hypertension Thyroid disorder Diabetes CVA (cerebral vascular accident) Skin cancer Father Hypertension Diabetes Parkinson disease Sister Hypertension Diabetes Scleroderma CHF (congestive heart failure) connective tissue disease Surgical History H/O total hysterectomy Social History Smoking Status: Former smoker quit date: 10/10/11 pack-years: 30 Tobacco: How many years used: 30 Electronic Cigarette Use: not used how long ago did patient quit smokin years second hand exposure: Yes quit status: quit date established counseling given: provider counseling ROS Constitutional Constitutional: Denies weight loss Cardiovascular Cardiovascular: Reports chest pain Respiratory/Chest Respiratory/Chest: Reports shortness of breath at rest and other Details: Difficult to take a deep breath at rest secondary to abdominal pain Gastrointestinal Gastrointestinal: Reports abdominal pain, bloating and hematochezia Genitourinary Genitourinary: Denies change in urinary stream Physical Exam Const alert and oriented x3 Exam Limitations: no limitations HEENT moist oral mucous membranes Eyes PERRL Neck supple Chest Chest Narrative: Increased anterior posterior diameter Resp clear to auscultation bilaterally Resp Narrative: Splinting and diminished respiratory excursion noted Cardio Rate: regular rate GI GI Narrative: Distended, quiet bowel sounds, diffusely tender Skin no rashes or lesions noted Neuro Neuro Narrative: Normal cognition Lab / Micro Data Result Diagrams: 06/24/21 06:00 06/24/21 06:00 Labs: Laboratory Results - last 24 hr 06/24/21 06:00: WBC 7.1, RBC 5.07, Hgb 15.0, Hct 47.1 H, MCV 92.9, MCH 29.6, MCHC 31.8 L, RDW Std Deviation 42.5, RDW Coeff of Nickie 12.5, Plt Count 380, MPV 10.0, Immature Gran % (Auto) 0.300, Neut % (Auto) 58.1, Lymph % (Auto) 30.9, [place] % (Auto) 7.2, Eos % (Auto) 2.4, Baso % (Auto) 1.1 H, Absolute Neuts (auto) 4.1, Absolute Lymphs (auto) 2.19, Nucleated RBC % 0 06/24/21 06:00: Sodium 141, Potassium 3.9, Chloride 108 H, Carbon Dioxide 29.0, Anion Gap 4 L, BUN 13, Creatinine 0.72, Estim Creat Clear Calc 67.02, Est GFR (MDRD) Af Amer 106, Est GFR (MDRD) Non-Af 88, BUN/Creatinine Ratio 18.1, Glucose 131 H, Calcium 8.7, Troponin I High Sens 69 H 06/24/21 11:22: Magnesium 2.2, Lipase 89301 H 06/24/21 11:22: Total Bilirubin 0.50, Direct Bilirubin 0.16, AST 377 H, ALT 299 H, Alkaline Phosphatase 141 H, Total Protein 6.9, Albumin 3.5, Globulin 3.4 Radiology Impression Chest X-Ray 06/24/21 06:25 IMPRESSION: Stable chest, no visualized acute focal infiltrate. Electronically Signed: Emily Noe MD at 7:55 EDT Tel , Service support , Chest CTA 06/24/21 09:07 IMPRESSION: No evidence of pulmonary embolism. Findings in keeping with the scarring and atelectasis at the lung bases. Findings suggestive of acute pancreatitis. Gallbladder wall thickening with pericholecystic fluid and findings suggestive of possible gallstones within the gallbladder lumen. Electronically Signed: Jimbo Blas MD at 9:45 EDT , Service support ,
--- NOTE | 2021-06-24 12:24 | US_ITS ---
STUDY: ABDOMINAL ULTRASOUND - RIGHT UPPER QUADRANT REASON FOR VISIT: Female, 61 years old ABD PAIN TECHNIQUE: Ultrasound evaluation of the right upper quadrant was performed with real-time and static downing-scale imaging. TECHNICAL QUALITY: Limited. Examination limited by bowel gas. COMPARISON: Comparison is made with prior CT scan of the thorax done earlier today. FINDINGS: Liver: The liver measures 17.6 cm. There is increased echogenicity consistent with fatty infiltration. The bile ducts are within normal limits. There is hepatic color flow. The direction of portal flow is hepatopetal. There is no demonstrated mass lesion. Gallbladder: Normal distended gallbladder. The gallbladder wall is thickened and measures 3.6 mm. There is a negative sonographic Greenwood''s sign. There is pericholecystic fluid. There are multiple echogenic structures within the gallbladder, consistent with multiple gallstones. Common Bile Duct (C.B.D.): The common bile duct measures 7.3 mm. Pancreas: Normal size of the head, body and tail of the pancreas. There is increased echogenicity of the pancreas. There is no demonstrated pancreatic mass or cyst. Right Kidney: Normal size of the right kidney. The right kidney measures 10.4 cm x 4.4 cm x 4.6 cm. Normal renal cortex. The right cortex measures cm. There is no demonstrated renal mass or cyst. There is no right hydronephrosis. US/Abdomen Limited IMPRESSION: Cholelithiasis. Gallbladder wall thickening and small amount of pericholecystic fluid. Electronically Signed: Jimbo Blas MD at 13:48 EDT , Service support ,
--- NOTE | 2021-06-24 16:48 | PN.SURG_ITS ---
Subjective Subjective Patient is more comfortable where she has just had morphine. She is taking sips and chips. She still is finding it difficult to take deep breaths. Objective Data Objective Data Vital Signs: Vital Signs Temp Pulse Resp BP Pulse Ox 98.3 F 67 14 124/71 H 97 06/24/21 15:37 06/24/21 15:47 06/24/21 15:37 06/24/21 15:37 06/24/21 15:37 Oxygen Flow Rate (L/min) 2 Oxygen Delivery Method Room Air Weight: 182 lb 5.156 oz Body Mass Index (BMI) 32.3 Intake & Output: Intake and Output for Last 24 Hours 06/22/21 06/23/21 06/24/21 23:59 23:59 23:59 Intake Total 1000 / 1000 Balance 1000 / 1000 Lab / Micro Data Result Diagrams: 06/24/21 06:00 06/24/21 06:00 Labs: Laboratory Results - last 24 hr 06/24/21 06:00: WBC 7.1, RBC 5.07, Hgb 15.0, Hct 47.1 H, MCV 92.9, MCH 29.6, MCHC 31.8 L, RDW Std Deviation 42.5, RDW Coeff of Nickie 12.5, Plt Count 380, MPV 10.0, Immature Gran % (Auto) 0.300, Neut % (Auto) 58.1, Lymph % (Auto) 30.9, [place] % (Auto) 7.2, Eos % (Auto) 2.4, Baso % (Auto) 1.1 H, Absolute Neuts (auto) 4.1, Absolute Lymphs (auto) 2.19, Nucleated RBC % 0 06/24/21 06:00: Sodium 141, Potassium 3.9, Chloride 108 H, Carbon Dioxide 29.0, Anion Gap 4 L, BUN 13, Creatinine 0.72, Estim Creat Clear Calc 67.02, Est GFR (MDRD) Af Amer 106, Est GFR (MDRD) Non-Af 88, BUN/Creatinine Ratio 18.1, Glucose 131 H, Calcium 8.7, Troponin I High Sens 69 H 06/24/21 11:22: Magnesium 2.2, Lipase 26546 H 06/24/21 11:22: Total Bilirubin 0.50, Direct Bilirubin 0.16, AST 377 H, ALT 299 H, Alkaline Phosphatase 141 H, Total Protein 6.9, Albumin 3.5, Globulin 3.4 Radiography Diagnostic Testing: Radiology Impression Chest X-Ray 06/24/21 06:25 IMPRESSION: Stable chest, no visualized acute focal infiltrate. Electronically Signed: Emily Noe MD at 7:55 EDT Tel , Service support , Chest CTA 06/24/21 09:07 IMPRESSION: No evidence of pulmonary embolism. Findings in keeping with the scarring and atelectasis at the lung bases. Findings suggestive of acute pancreatitis. Gallbladder wall thickening with pericholecystic fluid and findings suggestive of possible gallstones within the gallbladder lumen. Electronically Signed: Jimbo Blas MD at 9:45 EDT , Service support , Abdomen Ultrasound 06/24/21 12:24 IMPRESSION: Cholelithiasis. Gallbladder wall thickening and small amount of pericholecystic fluid. Electronically Signed: Jimbo Blas MD at 13:48 EDT , Service support , Assessment & Plan Assessment/Plan (1) Gallstone pancreatitis: PLAN: 61-year-old female with gallstone pancreatitis. I have vigorously encouraged initiation of incentive spirometry and ambulation as soon as pos sible. We will also initiate sequential venous compression devices for DVT prophylaxis. Because of planned upcoming surgery will need to hold the Lovenox prescription for tomorrow morning. I have described to her recommendations for laparoscopic cholecystectomy with cholangiograms and if indicated laparoscopic common bile duct exploration. She has had an opportunity to ask and have questions answered. She is aware that a post intervention ERCP may be appropriate. Early cholecystectomy in the setting of gallstone pancreatitis is very pertinent and appropriate in today's management. The operating room has suggested that OR timing will be approximately tomorrow at 2:30 in the afternoon. This will be pending the patient's clinical progress and laboratory progress. I appreciate the opportunity of assisting with her surgical care Del Lugo M.D., F.A.C.S.
[2021-06-24 17:17] LABS: Lipase 7790 U/L (73-393)
--- NOTE | 2021-06-24 17:47 | PCS.PANDOC ---
PANDEMIC DOCUMENTATION INITIATED: Date: 05/25/2021 Time: 1500
[2021-06-24] MEDS: Lactated Ringers 1,000 ML 150 ML IV ×2 (17:50→23:50)
--- NOTE | 2021-06-24 17:52 | CON.PCM.GI_ITS ---
HPI Consult Data Date of Consult: 06/24/21 HPI Narrative HPI Narrative: MARTÍN CARD, is a 61 F who presented to the ED is sound sleep the after being walking out from with abdominal pain and chest pain. She said initially the pain came in her chest and woke her up at 5:00 in the morning and radiated to her stomach and into her back. In the ED she was discovered to have an elevated troponin and I. She was also discovered to have some mild EKG changes. She went for cardiac catheterization. The cardiac catheterization showed no signs of acute obstruct ion. Because of her ongoing symptoms a CT scan of the chest was ordered. CT scan of the chest had shown some mild emphysema at the lung bases. It also showed acute pancreatitis. A lipase was ordered and it was 17,000. She also had some mild elevation in her alkaline phosphatase, AST and ALT. She does not admit to drinking any alcohol. She had an ultrasound of the right upper quadrant and it showed common bile duct diameter of 7 mm with multiple stones in the gallbladder and mild gallbladder wall thickening. Consulted to see her for a possible intervention after she undergoes a cholec ystectomy. [facility] Medical History Amputated finger Former smoker H/O Nely thyroiditis History of left heart catheterization Hypothyroidism Impaired fasting glucose Vitamin D deficiency Home Medications ergocalciferol (vitamin D2) 50,000 unit PO QMONTH 07/16/19 [History Last Taken 05/10/21] levothyroxine 112 mcg PO DAILY 07/16/19 [History Last Taken Unknown] aspirin 81 mg PO DAILY 06/24/21 [History Last Taken Unknown] Allergy/AdvReac Type Severity Reaction Status Date / Time gabapentin [From Neurontin] Allergy Severe Other Verified 06/24/21 06:08 Family History Mother Hypertension Thyroid disorder Diabetes CVA (cerebral vascular accident) Skin cancer Father Hypertension Diabetes Parkinson disease Sister Hypertension Diabetes Scleroderma CHF (congestive heart failure) connective tissue disease Surgical History H/O total hysterectomy Social History Smoking Status: Former smoker quit date: 10/10/11 pack-years: 30 Tobacco: How many years used: 30 Electronic Cigarette Use: not used how long ago did patient quit smokin years second hand exposure: Yes quit status: quit date established counseling given: provider counseling ROS Review of Systems ROS Unobtainable: other Constitutional Constitutional: Denies fatigue, fever(s), poor appetite, weight gain or weight loss ENT HEENT: Denies mouth lesions Cardiovascular Cardiovascular: Denies abdominal bloating, abdominal edema or abdominal pain Respiratory/Chest Respiratory/Chest: Denies change in mental status, change in phlegm color, chest congestion or chest tightness Gastrointestinal Gastrointestinal: Reports heartburn, nausea and other Details: Abdominal pain radiating to the back ; Denies belching, bloating, change in bowel habits, change in stool character, chewing difficulty, coffee ground emesis, constipation, cramping, diarrhea, dyspepsia, dysphagia, early satiety, excessive flatus, fecal incontinence, hematemesis, hematochezia, hemorrhoids, loose stools, melena, odynophagia, rectal bleeding, tenesmus, vomiting or weight changes Genitourinary Genitourinary: Denies abdominal discomfort, burning urination or itching Musculoskeletal Musculoskeletal: Reports as per HPI; Denies muscle weakness or myalgias Integumentary Integumentary: Denies jaundice Neurologic Neurologic: Denies lack of coordination or weakness Psychiatric Psychiatric: Denies confusion, depression, memory loss, mood swings, paranoia or suicidal ideation Endocrine Endocrinology: Denies systems reviewed and no addt'l complaints, except as documented Hematologic/Lymphatic Hematologic/Lymphatic: Denies anemia, easy bleeding, easy bruising or lymphadenopathy Allergic/Immunologic Allergic/Immunologic: Denies systems reviewed and no addt'l complaints, except as documented Physical Exam Const alert General Appearance: cooperative Orientation / Consciousness: oriented to person HEENT hearing grossly normal bilaterally Head and Scalp: normal to inspection Face and Sinus: face symmetric Nose: external nose normal Mouth: oral and palatal mucosa normal Eyes conjunctivae normal General Eye: normal appearance of both eyes Neck full ROM General: normal visual inspection Lymph Lymphatic: no lymphadenopathy noted Chest inspection of chest normal and palpation of chest normal Chest: symmetrical chest wall rise Resp normal respiratory effort Effort and Inspection: able to speak in complete sentences Cardio regular rate GI non-distended GI Narrative: Tender abdomen in the periumbilical region without signs of hematoma or skin discoloration Percussion: normal to percussion Rectal Exam: deferred Neuro Speech: speech normal Gait (Neuro): normal gait Lab / Micro Data Result Diagrams: 06/24/21 06:00 06/24/21 06:00 Labs: Laboratory Results - last 24 hr 06/24/21 06:00: WBC 7.1, RBC 5.07, Hgb 15.0, Hct 47.1 H, MCV 92.9, MCH 29.6, MCHC 31.8 L, RDW Std Deviation 42.5, RDW Coeff of Nickie 12.5, Plt Count 380, MPV 10.0, Immature Gran % (Auto) 0.300, Neut % (Auto) 58.1, Lymph % (Auto) 30.9, [place] % (Auto) 7.2, Eos % (Auto) 2.4, Baso % (Auto) 1.1 H, Absolute Neuts (auto) 4.1, Absolute Lymphs (auto) 2.19, Nucleated RBC % 0 06/24/21 06:00: Sodium 141, Potassium 3.9, Chloride 108 H, Carbon Dioxide 29.0, Anion Gap 4 L, BUN 13, Creatinine 0.72, Estim Creat Clear Calc 67.02, Est GFR (MDRD) Af Amer 106, Est GFR (MDRD) Non-Af 88, BUN/Creatinine Ratio 18.1, Glucose 131 H, Calcium 8.7, Troponin I High Sens 69 H 06/24/21 11:22: Magnesium 2.2, Lipase 18480 H 06/24/21 11:22: Total Bilirubin 0.50, Direct Bilirubin 0.16, AST 377 H, ALT 299 H, Alkaline Phosphatase 141 H, Total Protein 6.9, Albumin 3.5, Globulin 3.4 06/24/21 16:48: Lipase 7790 H Radiology Impression Chest X-Ray 06/24/21 06:25 IMPRESSION: Stable chest, no visualized acute focal infiltrate. Electronically Signed: Emily Noe MD at 7:55 EDT Tel , Service support , Chest CTA 06/24/21 09:07 IMPRESSION: No evidence of pulmonary embolism. Findings in keeping with the scarring and atelectasis at the lung bases. Findings suggestive of acute pancreatitis. Gallbladder wall thickening with pericholecystic fluid and findings suggestive of possible gallstones within the gallbladder lumen. Electronically Signed: Jimbo Blas MD at 9:45 EDT , Service support , Abdomen Ultrasound 06/24/21 12:24 IMPRESSION: Cholelithiasis. Gallbladder wall thickening and small amount of pericholecystic fluid. Electronically Signed: Jimbo Blas MD at 13:48 EDT , Service support , Assessment & Plan Assessment/Plan (1) Gallstone pancreatitis: PLAN: She will undergo a cholecystectomy with IOC. Recommend IV fluids at 250 cc an hour. Goal was to keep BUN less than 10. Also goal is to keep hematocrit less than 35%. Recommend Protonix 40 mg IV daily for GI prophylaxis. I will continue to see this patient in the hospital. Thank you very much for allowing me to participate in the care of his patient.
[2021-06-24] MEDS: HYDROmorphone 0.5 MG/0.5 ML SYRINGE IV ×2 (19:08→23:50)
[2021-06-24] MEDS: 0.9% Saline Lock 10 ML Syringe IV (19:09)
[2021-06-25] VITALS (14 sets, daily range): BP systolic 121–157; BP diastolic 68–84; PULSE 70–98; RESP 12–16; TEMP 36.4–36.9; O2SAT 91–97
[2021-06-25 01:09] LABS: M R Staph aureus DNA By PCR Negative (Negative); Probe Check PASS; Specimen Processing Control PASS
--- NOTE | 2021-06-25 05:39 | PCM.PN.SRG ---
Subjective Subjective Patient is feeling improved. Not as uncomfortable as yesterday but still having pain. She has had flatus. She has been up and moved around a slight bit Objective Data Objective Data Vital Signs: Vital Signs Temp Pulse Resp BP Pulse Ox 98.5 F 98 16 135/73 H 96 06/25/21 03:00 06/25/21 03:00 06/25/21 03:00 06/25/21 03:00 06/25/21 03:00 Oxygen Flow Rate (L/min) 2 Oxygen Delivery Method Nasal Cannula Weight: 178 lb 9.191 oz Body Mass Index (BMI) 31.6 Intake & Output: Intake and Output for Last 24 Hours 06/23/21 06/24/21 06/25/21 23:59 23:59 23:59 Intake Total 2400 / 2400 Balance 2400 / 2400 Lab / Micro Data Result Diagrams: 06/24/21 06:00 06/24/21 06:00 Labs: Laboratory Results - last 24 hr 06/24/21 06:00: WBC 7.1, RBC 5.07, Hgb 15.0, Hct 47.1 H, MCV 92.9, MCH 29.6, MCHC 31.8 L, RDW Std Deviation 42.5, RDW Coeff of Nickie 12.5, Plt Count 380, MPV 10.0, Immature Gran % (Auto) 0.300, Neut % (Auto) 58.1, Lymph % (Auto) 30.9, [place] % (Auto) 7.2, Eos % (Auto) 2.4, Baso % (Auto) 1.1 H, Absolute Neuts (auto) 4.1, Absolute Lymphs (auto) 2.19, Nucleated RBC % 0 06/24/21 06:00: Sodium 141, Potassium 3.9, Chloride 108 H, Carbon Dioxide 29.0, Anion Gap 4 L, BUN 13, Creatinine 0.72, Estim Creat Clear Calc 67.02, Est GFR (MDRD) Af Amer 106, Est GFR (MDRD) Non-Af 88, BUN/Creatinine Ratio 18.1, Glucose 131 H, Calcium 8.7, Troponin I High Sens 69 H 06/24/21 11:22: Magnesium 2.2, Lipase 15217 H 06/24/21 11:22: Total Bilirubin 0.50, Direct Bilirubin 0.16, AST 377 H, ALT 299 H, Alkaline Phosphatase 141 H, Total Protein 6.9, Albumin 3.5, Globulin 3.4 06/24/21 16:48: Lipase 7790 H 06/24/21 20:47: MRSA (PCR) Negative Radiography Diagnostic Testing: Radiology Impression Chest X-Ray 06/24/21 06:25 IMPRESSION: Stable chest, no visualized acute focal infiltrate. Electronically Signed: Emily Noe MD at 7:55 EDT Tel , Service support , Chest CTA 06/24/21 09:07 IMPRESSION: No evidence of pulmonary embolism. Findings in keeping with the scarring and atelectasis at the lung bases. Findings suggestive of acute pancreatitis. Gallbladder wall thickening with pericholecystic fluid and findings suggestive of possible gallstones within the gallbladder lumen. Electronically Signed: Jimbo Blas MD at 9:45 EDT , Service support , Abdomen Ultrasound 06/24/21 12:24 IMPRESSION: Cholelithiasis. Gallbladder wall thickening and small amount of pericholecystic fluid. Electronically Signed: Jimbo Blas MD at 13:48 EDT , Service support , Physical Exam Resp Resp Narrative: Diminished in the bases, diminished respiratory excursion, clear in the apices GI GI Narrative: Slightly softer, still slightly distended, bowel sounds are present, mildly tender Assessment & Plan Assessment/Plan (1) Gallstone pancreatitis: PLAN: Repeat lipase was obtained yesterday afternoon demonstrating a decline from approximately 17,000-7000. Her clinical presentation and clinical exam have improved as well. I have encouraged incentive spirometry and mobilization. I anticipate laparoscopic cholecystectomy as OR timing permits. Based upon her progress I anticipate a likely normal cholangiogram. She has had an opportunity to ask and have questions answered. We will proceed as noted. Del Lugo M.D., F.A.C.S.
[2021-06-25 05:41] LABS: Absolute Lymphocyte Count 1.44 X10^3/uL (0.83-4.51); Absolute Neutrophil Count 7.6 X10^3/uL (2.0-7.7); Basophil# 0.05 X10^3/uL; Basophil% 0.5 % (0-1); Eosinophil# 0.09 X10^3/uL; Eosinophils% 0.9 % (0-5); Hematocrit 40.6 % (37-47); Lymphocyte # 1.44 X10^3/ul (0.83-4.51); Lymphocyte % 14.8 % (19-41); Mean Corpuscular Hgb 29.7 pg (27.0-32.0); Mean Corpuscular Volume 92.7 fL (81-99); Mean Platelet Vol. 10.2 fl (6.2-12.0); Monocyte# 0.58 X10^3/uL; Monocyte% 5.9 % (0-10); NRBC Flagged by Analyzer 0 % (0-5); Neutrophil # 7.55 X10^3/uL (2.7-7.7); Neutrophil % 77.4 % (47-70); Platelet Count 321 K/mm3 (150-450); RBC Distribution Width CV 12.8 % (11.6-14.6); RBC Distribution Width SD 43.8 fl (35.1-43.9); Red Blood Count 4.38 M/mm3 (4.2-5.4); White Blood Count 9.8 K/mm3 (4.4-11.0)
[2021-06-25 06:05] LABS: ALB/GLOB Ratio 0.9 RATIO (0.9-2.4); AST(SGOT) 89 U/L (15-37); Alanine Aminotransfer ALT/SGPT 173 U/L (13-56); Albumin, Serum 2.8 g/dL (3.2-5.0); Alkaline Phosphatase 111 U/L (45-117); Anion Gap 5 (5-15); BUN 11 mg/dL (7-18); Chloride 108 mmol/L (98-107); Creatinine, Serum 0.61 mg/dL (0.55-1.02); EST Glomerular Filtration Rate 106 mL/min (>60); Est Glom Filt Rate - Afr Amer 128 mL/min (>60); Estimated Creatinine Clearance 75.63 ml/min; Globulin 3.2 g/dL (2.2-4.2); Glucose 112 mg/dL (74-106); Lipase 2589 U/L (73-393); Magnesium 2.1 mg/dL (1.6-2.6); Phosphorus 2.8 mg/dL (2.5-4.9); Potassium 3.9 mmol/L (3.5-5.1); Sodium Level 139 mmol/L (136-145)
[2021-06-25] MEDS: Acetaminophen 325 MG Tablet 650 MG PO (06:21)
[2021-06-25 08:06] LABS: Thyroid Stim Hormone (TSH) 0.13 uIU/mL (0.358-3.74)
[2021-06-25] MEDS: Morphine 4 MG/ML Syringe IV (08:13)
--- NOTE | 2021-06-25 08:57 | PCM.PN.HOSP ---
Objective Data Objective Data Vital Signs: Vital Signs Temp Pulse Resp BP Pulse Ox 98.4 F 75 16 121/73 H 93 06/25/21 08:11 06/25/21 08:11 06/25/21 08:11 06/25/21 08:11 06/25/21 08:11 Oxygen Flow Rate (L/min) 2 Oxygen Delivery Method Room Air Weight: 178 lb 9.191 oz Body Mass Index (BMI) 31.6 Intake & Output: Intake and Output for Last 24 Hours 06/23/21 06/24/21 06/25/21 23:59 23:59 23:59 Intake Total 2400 / 2400 1000 / 1000 Balance 2400 / 2400 1000 / 1000 Lab / Micro Data Result Diagrams: 06/25/21 05:08 06/25/21 05:08 Labs: Laboratory Results - last 24 hr 06/24/21 11:22: Magnesium 2.2, Lipase 46441 H 06/24/21 11:22: Total Bilirubin 0.50, Direct Bilirubin 0.16, AST 377 H, ALT 299 H, Alkaline Phosphatase 141 H, Total Protein 6.9, Albumin 3.5, Globulin 3.4 06/24/21 16:48: Lipase 7790 H 06/24/21 20:47: MRSA (PCR) Negative 06/25/21 05:08: WBC 9.8, RBC 4.38, Hgb 13.0, Hct 40.6, MCV 92.7, MCH 29.7, MCHC 32.0, RDW Std Deviation 43.8, RDW Coeff of Nickie 12.8, Plt Count 321, MPV 10.2, Immature Gran % (Auto) 0.500, Neut % (Auto) 77.4 H, Lymph % (Auto) 14.8 L, [place] % (Auto) 5.9, Eos % (Auto) 0.9, Baso % (Auto) 0.5, Absolute Neuts (auto) 7.6, Absolute Lymphs (auto) 1.44, Nucleated RBC % 0 06/25/21 05:08: Sodium 139, Potassium 3.9, Chloride 108 H, Carbon Dioxide 26.0, Anion Gap 5, BUN 11, Creatinine 0.61, Estim Creat Clear Calc 75.63, Est GFR (MDRD) Af Amer 128, Est GFR (MDRD) Non-Af 106, BUN/Creatinine Ratio 18.0, Glucose 112 H, Calcium 8.0 L, Phosphorus 2.8, Magnesium 2.1, Total Bilirubin 0.60, AST 89 H, ALT 173 H, Alkaline Phosphatase 111, Total Protein 6.0 L, Albumin 2.8 L, Globulin 3.2, Albumin/Globulin Ratio 0.9, Lipase 2589 H 06/25/21 05:08: TSH 0.13 L Radiography Diagnostic Testing: Radiology Impression Chest CTA 06/24/21 09:07 IMPRESSION: No evidence of pulmonary embolism. Findings in keeping with the scarring and atelectasis at the lung bases. Findings suggestive of acute pancreatitis. Gallbladder wall thickening with pericholecystic fluid and findings suggestive of possible gallstones within the gallbladder lumen. Electronically Signed: Jimbo Blas MD at 9:45 EDT , Service support , Abdomen Ultrasound 06/24/21 12:24 IMPRESSION: Cholelithiasis. Gallbladder wall thickening and small amount of pericholecystic fluid. Electronically Signed: Jimbo Blas MD at 13:48 EDT , Service support , Physical Exam Narrative Seen and examined. Abdominal pain is much improved. No nausea vomiting. Plan for lap aubrey with IOC in afternoon today. General: Alert, Oriented x3, Cooperative HEENT: Atraumatic, PERRLA, EOMI, Normocephalic Oral: No Gingival or Mucosal Lesions/ Ulcerations Neck: Supple, No JVD, Negative Carotid Bruits Lungs: Air entry equal in bilateral lung bases. No crepitation/rhonchi Cardiovascular: Sinus rhythm with PVCs, Normal S1, Normal S2, No murmurs Abdomen: Mild tenderness around the xiphisternum and epigastrium/RUQ. Bowel Sounds Present, soft, nondistended. : No renal angle tenderness. No suprapubic tenderness. Extremities: No edema, Capillary Refill Less than 3 Seconds Skin: No rashes, No breakdown Musculoskeletal: No Tenderness to Palpation of Joints or Extremities Neurological: Cranial nerves II-XII grossly intact, DTR 2+/4 and Symmetrical, Neuro grossly intact Psych/Mental Status: Normal Affect, Appropriate. Assessment & Plan Assessment/Plan (1) Gallstone pancreatitis: PLAN: This 61-year-old pleasant woman came to ER for lower midsternal chest pain with left arm numbness and found to have gallstone pancreatitis on further work-up. 1. Acute gallstone pancreatitis: [facility] Blood pressure and heart rate is normal. Lipase came 17,972. Clinical and CT scan finding discussed with surgeon Dr Thompson. Liver profile pending. IV fluid Ringer lactate at 150 mils per [address]PO. CT abdomen individually reviewed and shows GB wall thickening, pericholecystic fluid and gallstones in gallbladder lumen. Patient might need GI consult for ERCP if cholestatic enzymes especially total bilirubin is elevated 06/25: GI and surgery consult reviewed. BUN is 11. Hematocrit 40%. Patient is well resuscitated. Liver chemistry shows downward trend with improvement in alkaline phosphatase and transaminases. Continue Ringer lactate at 125 mill per hour. Anticipate laparoscopic cholecystectomy with IOC as per surgeon's note. 2. Atypical chest pain probably due to pancreatitis: Cardiac cath showed normal coronary arteries. Troponin elevated 69 on high normal side probably false positive or acute pancreatitis. 06/25: Resolved. 3. Nely's thyroiditis, hypothyroidism, former smoker/impaired fasting glucose: Glucose is 131. A1c ordered for tomorrow a.m. VTE prophylaxis, moderate risk: Lovenox 40 mg subcu daily after 24 hours of cardiac cath. Bilateral SCDs Living will/advanced directive/end of life care: Patient does have living will or advanced directive. Her is power of dry cell and battery assembler for health. After discussion of benefits/risks procedures involved with full code, DNR CC arrest and DNR CC, the patient opted for full code. Patient does want artificial life support including intubation, tube feed, ventilator and/chest compression, central venous catheter, vasopressor and DC shock if needed Total time spent in [id number] encounter in discussion of advanced directive 16 minutes. Chest CTA 06/24/21 09:07 IMPRESSION: No evidence of pulmonary embolism. Findings in keeping with the scarring and atelectasis at the lung bases. Findings suggestive of acute pancreatitis. Gallbladder wall thickening with pericholecystic fluid and findings suggestive of possible gallstones within the gallbladder lumen. This 61-year-old pleasant woman came to ER for lower midsternal chest pain with left arm numbness and found to have gallstone pancreatitis on further work-up. 1. Acute gallstone pancreatitis: [facility]. Blood pressure and heart rate is normal. Lipase came 17,972. Clinical and CT scan finding discussed with surgeon Dr Thompson. Liver profile pending. IV fluid Ringer lactate at 150 mils per hour. [address]PO. CT abdomen individually reviewed and shows GB wall thickening, pericholecystic fluid and gallstones in gallbladder lumen. Patient might need GI consult for ERCP if cholestatic enzymes especially total bilirubin is elevated 06/25: GI and surgery consult reviewed. BUN is 11. Hematocrit 40%. Patient is well resuscitated. Liver chemistry shows downward trend with improvement in alkaline phosphatase and transaminases. Continue Ringer lactate at 125 mill per hour. Anticipate laparoscopic cholecystectomy with IOC as per surgeon's note. 2. Atypical chest pain probably due to pancreatitis: Cardiac cath showed normal coronary arteries. Troponin elevated 69 on high normal side probably false positive or acute pancreatitis. 06/25: Resolved. 3. Nely's thyroiditis, hypothyroidism, former smoker/impaired fasting glucose: Glucose is 131. A1c ordered for tomorrow a.m. VTE prophylaxis, moderate risk: Lovenox 40 mg subcu daily after 24 hours of cardiac cath. Bilateral SCDs Living will/advanced directive/end of life care: Patient does have living will or advanced directive. Her is power of dry cell and battery assembler for health. After discussion of benefits/risks procedures involved with full code, DNR CC arrest and DNR CC, the patient opted for full code. Patient does want artificial life support including intubation, tube feed, ventilator and/chest compression, central venous catheter, vasopressor and DC shock if needed Total time spent in [id number] encounter in discussion of advanced directive 16 minutes. Chest CTA 06/24/21 09:07 IMPRESSION: No evidence of pulmonary embolism. Findings in keeping with the scarring and atelectasis at the lung bases. Findings suggestive of acute pancreatitis. Gallbladder wall thickening with pericholecystic fluid and findings suggestive of possible gallstones within the gallbladder lumen. Charges/Coding Visit Charges Inpatient E&M: 15924 Subs Hosp L2
[2021-06-25] MEDS: Lactated Ringers 1,000 ML 125 ML IV ×3 (09:54→16:41)
--- NOTE | 2021-06-25 10:16 | PN.GI_ITS ---
Subjective Subjective Her pain is down to a 5 out of 10. However she does have a headache and some back pain. She has not had a bowel movement. She is not nauseous. She does not have any weakness. She does not see any signs of hematoma. She has been afebrile. Objective Data Objective Data Vital Signs: Vital Signs Temp Pulse Resp BP Pulse Ox 98.4 F 75 16 121/73 H 93 06/25/21 08:11 06/25/21 08:11 06/25/21 08:11 06/25/21 08:11 06/25/21 08:11 Oxygen Flow Rate (L/min) 2 Oxygen Delivery Method Room Air Weight: 178 lb 9.191 oz Body Mass Index (BMI) 31.6 Intake & Output: Intake and Output for Last 24 Hours 06/23/21 06/24/21 06/25/21 23:59 23:59 23:59 Intake Total 2400 / 2400 1110 / 1110 Balance 2400 / 2400 1110 / 1110 Lab / Micro Data Result Diagrams: 06/25/21 05:08 06/25/21 05:08 Labs: Laboratory Results - last 24 hr 06/24/21 11:22: Magnesium 2.2, Lipase 32054 H 06/24/21 11:22: Total Bilirubin 0.50, Direct Bilirubin 0.16, AST 377 H, ALT 299 H, Alkaline Phosphatase 141 H, Total Protein 6.9, Albumin 3.5, Globulin 3.4 06/24/21 16:48: Lipase 7790 H 06/24/21 20:47: MRSA (PCR) Negative 06/25/21 05:08: WBC 9.8, RBC 4.38, Hgb 13.0, Hct 40.6, MCV 92.7, MCH 29.7, MCHC 32.0, RDW Std Deviation 43.8, RDW Coeff of Nickie 12.8, Plt Count 321, MPV 10.2, Immature Gran % (Auto) 0.500, Neut % (Auto) 77.4 H, Lymph % (Auto) 14.8 L, [place] % (Auto) 5.9, Eos % (Auto) 0.9, Baso % (Auto) 0.5, Absolute Neuts (auto) 7.6, Absolute Lymphs (auto) 1.44, Nucleated RBC % 0 06/25/21 05:08: Sodium 139, Potassium 3.9, Chloride 108 H, Carbon Dioxide 26.0, Anion Gap 5, BUN 11, Creatinine 0.61, Estim Creat Clear Calc 75.63, Est GFR (M DRD) Af Amer 128, Est GFR (MDRD) Non-Af 106, BUN/Creatinine Ratio 18.0, Glucose 112 H, Calcium 8.0 L, Phosphorus 2.8, Magnesium 2.1, Total Bilirubin 0.60, AST 89 H, ALT 173 H, Alkaline Phosphatase 111, Total Protein 6.0 L, Albumin 2.8 L, Globulin 3.2, Albumin/Globulin Ratio 0.9, Lipase 2589 H 06/25/21 05:08: TSH 0.13 L Radiography Diagnostic Testing: Radiology Impression Abdomen Ultrasound 06/24/21 12:24 IMPRESSION: Cholelithiasis. Gallbladder wall thickening and small amount of pericholecystic fluid. Electronically Signed: Jimbo Blas MD at 13:48 EDT , Service support , Physical Exam Const alert General Appearance: cooperative Orientation / Consciousness: oriented to person HEENT hearing grossly normal bilaterally Head and Scalp: normal to inspection Face and Sinus: face symmetric Nose: external nose normal Mouth: oral and palatal mucosa normal Eyes conjunctivae normal General Eye: normal appearance of both eyes Neck full ROM General: normal visual inspection Lymph Lymphatic: no lymphadenopathy noted Chest inspection of chest normal and palpation of chest normal Chest: symmetrical chest wall rise Resp normal respiratory effort Effort and Inspection: able to speak in complete sentences Cardio regular rate GI non-distended Percussion: normal to percussion Rectal Exam: deferred Neuro Speech: speech normal Gait (Neuro): normal gait Assessment & Plan Assessment/Plan (1) Gallstone pancreatitis: PLAN: Because she is still having pain I will give her a bolus of IV fluids and also give her a one-time dose of morphine. She does have Dilaudid ordered every 4 hours. Her numbers are improving. However she needs bowel rest. I will see her after she has her cholecystectomy today. Keep hematocrit less than 35% and keep a BUN to creatinine ratio less than 20-1
--- NOTE | 2021-06-25 10:40 | CASEMGMT ---
NEREYDA DIEHL assessment: Face to Face with patient for initial transition planning/care coordination assessment. NEREYDA DIEHL introduced self and role at [facility], pt voices understanding and consents to assessment. Pt is sitting up in bed in no distress. Pt is A/Ox4 and answers all questions appropriately. Care providers, pharmacy, and demographics verified. Presentation: Pt c/o CP, left arm numbness that awoke her from sleep at 0500 Admitting dx: NSTEMI PCP: [facility] Specialists: None Preferred Pharmacy: [facility] Insurance: Cigna Prescription Benefit: Cigna Living Will/HPOA: Pt states has LW/HPOA and is aware that they are not on file at [facility]. Pt states her , Cortez Valverde, is HPOA. LNOK: Cortez Valverde, ; Calli Eid, daughter Living Arrangements: Pt states lives with in 2 story home and states no concerns at home. Pt is independent w/ ADL's. Transportation: Pt states drives self and states no transportation concerns. DME/HHC: Pt states no current DME or need for any DME. Pt states no hx of HHC or SNF. Pt states no concerns with going home at time of discharge. 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 Pt states does not smoke cigarettes or drink ETOH. Pt states no further concerns/needs. CM to follow for any further discharge planning/needs. Advised pt to ask for CM if any further questions/concerns/needs arise, voices understanding. Pt Goal: Home Plan[place] NEREYDA DIEHL
[2021-06-25] MEDS: Cefazolin 2 GM in 0.9% Normal Saline 100 ML IV (13:49)
--- NOTE | 2021-06-25 14:30 | RAD_ITS ---
STUDY: INTRAOPERATIVE GLANDULAR. REASON FOR EXAM: Female, 61 years old. LAP LAYLA WITH IOC FLUOROSCOPY TIME (if supplied): ( 44.6 seconds ) minutes/seconds. A single run of 204 images was submitted. TECHNIQUE: Intraoperative cholangiography was performed by the surgeon. Imaging was performed. COMPARISON: None. FINDINGS: There is a mild degree of dilatation of the common bile duct. Only a small amount of contrast is seen entering the duodenum. RAD/Cholangiogram/ O R,Initial IMPRESSION: Dilatation of the common bile duct. Only a small amount of contrast is seen entering the duodenum. Electronically Signed: Jimbo Blsa MD at 15:38 EDT , Service support ,
--- NOTE | 2021-06-25 14:30 | GALL_PTH ---
PATIENT: MARTÍN CARD LOC: MS2 U#:[id number] AGE/SX: 61/F [facility]OM[facility] [place]: Dr. Shahid Rocha DO : 1960 BED: 1 DIS: 06/26/2021 SPEC #: [id number] RECD: 06/25/21 15:30 STATUS: DIOMEDES RE #: [id number] YESSICA: 06/25/21 14:[address]: Del Lugo DEPT: SURGICAL PATHOLOGY RECD BY: Sharita Cisneros ENTERED: 06/26/21 12:00 SP TYPE: GALLBLADDE OTHR DR: MD Dr. Shahid Pablo DO Dr. Prakash Chand, MD Dr. Scott Hannan, MD Tissues: Gallbladder, NOS Procedures: Surgery Specimen Level III Comments: @ Ordering doctor for SUIII edited from to @ shanta MARC at 06/26/21 1539 @ Submitting doctor edited from to @ by TARI at 06/26/21 1539 HEADER OPERATION: Laparoscopic cholecystectomy with IOC PRE-OP DIAGNOSIS: Gallbladder pancreatitis TISSUE SUBMITTED: Gallbladder MICROSCOPIC DIAGNOSIS Gallbladder, cholecystectomy: Chronic cholecystitis and cholelithiasis. AM:makenzie 06/29/2021 MICROSCOPIC DESCRIPTION Slides are reviewed. GROSS DESCRIPTION Received is one container labeled with the patient's name and designated gallbladder. The specimen consists of a gallbladder measuring 9.5 x 2.8 x 2.5 cm. The external surface is smooth and glistening. Focally, it is granular, hemorrhagic and contains cautery artifact. The lumen of the gallbladder contains yellow-green mucoid bile and multiple yellow calculi ranging in size from 1 to 1.6 cm in greatest dimension. The mucosa is bile-stained and without any mass lesions. The gallbladder wall averages 0.2 cm in thickness and is free of mass lesions. Aviation Ordnance Officer sections of the gallbladder and the cystic duct at margin of resection are submitted in one cassette. / AM:makenzie 06/26/21 TC:3 CPT: 26926
--- NOTE | 2021-06-25 15:09 | RAD_ITS ---
STUDY: INTRAOPERATIVE GLANDULAR. REASON FOR EXAM: Female, 61 years old. CHOLANGIOGRAM POST GLUCAGON FLUOROSCOPY TIME (if supplied): ( 14 seconds ) minutes/seconds. A cine loop of 85 images was submitted. TECHNIQUE: A repeat intraoperative quadrant was performed with the surgeon with injection of GLUCAGON. COMPARISON: Comparison is made with prior study done earlier. FINDINGS: Mild degree of the dilatation of the common bile duct. There now is evidence of free flow into the duodenum. RAD/Cholangiogram O.R./Subsequent IMPRESSION: Residual mild dilatation of the common bile duct. Free flow of contrast is seen within the duodenum. Electronically Signed: Jimbo Blas MD at 15:40 EDT , Service support ,
[2021-06-25] MEDS: Bupivacaine Mpf 0.5% 30 ML VIAL (15:24)
--- NOTE | 2021-06-25 15:26 | PCM.OPRPT ---
Problems Associated Problem List Diagnoses (1) Gallstone pancreatitis: (2) Cholelithiasis with chronic cholecystitis: Report of Operation Date of Procedure: 06/25/21 Pre-Operative Diagnosis: Gallstone pancreatitis, chronic cholecystitis cholelithiasis Post-Operative Diagnosis: Same Surgery/Procedure Performed:: Laparoscopic cholecystectomy with cholangiograms Description of Surgical Findings:: Timeout informed consent was obtained. 61-year-old female was taken to the operating placed on the table underwent general endotracheal intubation anesthesia. Ancef 2 g were given intravenously preoperatively. The abdomen was sterilely prepped and draped. 0.5% Marcaine was used as a local anesthetic. Skin sites were preanesthetized. A total of 30 cc was used. A vertical infraumbilical incision was created holding sutures of 0 Vicryl placed. Initially a varies needle inserted but I did not get easy flow so then used a 5 mm scope and using a direct Visiport entry got clean access to the abdomen. The abdomen was insufflated with CO2 to a pressure of 12 mmHg pressure. I placed a 5 mm port in the epigastric area and another 1 near the xiphoid. I exchanged out the 5 mm port at the umbilicus for 10 mm port. I placed an additional 5 mm port in the right upper outer quadrant. Patient was placed in reverse Trendelenburg position the gallbladder had multiple adhesions of omentum. There was a significant amount of soft tissue swelling in the upper abdomen. The gallbladder was carefully sharply and bluntly dissected free. Were needed hemostasis was obtained with Hem-o-vinay clips. The infundibular area of the gallbladder was carefully dissected free until the cystic duct lymph node cystic artery and cystic duct were clearly identified. Throughout hemostasis had been obtained were needed with hemolock clips. A Hem-o-vinay clip was placed on the cystic duct stump incision in the cystic duct stump and a 14-gauge Angiocath was used to insert a cholangiogram catheter and fluoroscopically controlled cholangiograms were obtained. The initial attempt demonstrated just a wisp of fluid at the ampulla. The patient received a milligram of glucagon and after 5 minutes of therapeutic time repeat cholangiogram was obtained. At this point there already was immediate spontaneous filling through the distal common bile duct into the small bowel freely. There was no evidence of any intraluminal filling defects. The cholangiogram catheter was removed. 2 hemolock clips were placed on the cystic duct stump prior to transecting it. The cystic artery was clipped twice proximally prior to transecting it. The gallbladder was dissected free from the liver bed. Were needed hemoclips were additionally utilized. Hemostasis was obtained with electrocautery and then to assure hemostasis a piece of fibrillar was placed in the liver bed. The right upper quadrant was irrigated and aspirated free of excess fluid. Hemostasis was intact. The gallbladder was placed in a retrieval bag and exited at the umbilicus. The abdomen was deflated through an antiviral valve. Gallbladder was exited the umbilicus. Trochars were removed. The fascia at the umbilicus approximated opted 0 Vicryl [id number] suture. Skin edges approximated opted for Monocryl subdermal stitches. Steri-Strips Telfa OpSite dressings applied. Sponge and instrument and needle counts were reported to the surgeon to be correct. Specimens gallbladder. Drains none. Blood loss 50 cc. The patient was taken to the recovery room in satisfactory patient operative complication. Del Lugo M.D., F.A.C.S. Surgeon: Del Lugo Anesthesiologist: Ender Flores
[2021-06-25] MEDS: Lactated Ringers 1,000 ML 75 ML IV (18:17)
[2021-06-25] MEDS: HYDROcodone Bitartrate/Apap 5/325 Tablet PO (19:59)
[2021-06-26] VITALS (12 sets, daily range): BP systolic 115–136; BP diastolic 67–79; PULSE 70–89; RESP 16–18; TEMP 36.8–37.1; O2SAT 92–95
[2021-06-26] MEDS: HYDROcodone Bitartrate/Apap 5/325 Tablet PO ×3 (02:08→13:03)
--- NOTE | 2021-06-26 03:47 | NURSING ---
REPORT CALLED TO MARISSA ON MS2 PATIENT GOING TO MS 212
--- NOTE | 2021-06-26 04:32 | NURSING ---
Pt to room from PCU. patient awake and alert, pleasant. states mild discomfort at this time. was medicated with Egan approx 0200 per FRINGE WEAVER. lap dressings D&I. abd soft, slightly distended. BS present but patient denies passing flatus. Pt denies needs at this time.
--- NOTE | 2021-06-26 05:50 | PCM.PN.SRG ---
Subjective Subjective Patient states that she tolerated some clear liquids. No flatus but burping. Still somewhat sore particularly in the right upper quadrant. She has been up out of bed. Voiding well. Objective Data Objective Data Vital Signs: Vital Signs Temp Pulse Resp BP Pulse Ox 98.4 F 88 16 125/73 H 94 06/26/21 01:43 06/26/21 04:41 06/26/21 01:43 06/26/21 01:43 06/26/21 01:43 Oxygen Flow Rate (L/min) 2 Oxygen Delivery Method Nasal Cannula Weight: 178 lb 9.191 oz Body Mass Index (BMI) 31.6 Intake & Output: Intake and Output for Last 24 Hours 06/24/21 06/25/21 06/26/21 23:59 23:59 23:59 Intake Total 2400 / 2400 3552.5 / 3552.5 640 / 640 Balance 2400 / 2400 3552.5 / 3552.5 640 / 640 Lab / Micro Data Result Diagrams: 06/25/21 05:08 06/25/21 05:08 Labs: Laboratory Results - last 24 hr 06/25/21 05:08: Sodium 139, Potassium 3.9, Chloride 108 H, Carbon Dioxide 26.0, Anion Gap 5, BUN 11, Creatinine 0.61, Estim Creat Clear Calc 75.63, Est GFR (MDRD) Af Amer 128, Est GFR (MDRD) Non-Af 106, BUN/Creatinine Ratio 18.0, Glucose 112 H, Calcium 8.0 L, Phosphorus 2.8, Magnesium 2.1, Total Bilirubin 0.60, AST 89 H, ALT 173 H, Alkaline Phosphatase 111, Total Protein 6.0 L, Albumin 2.8 L, Globulin 3.2, Albumin/Globulin Ratio 0.9, Lipase 2589 H 06/25/21 05:08: TSH 0.13 L Radiography Diagnostic Testing: Radiology Impression Cholangiogram 06/25/21 14:30 IMPRESSION: Dilatation of the common bile duct. Only a small amount of contrast is seen entering the duodenum. Electronically Signed: Jimbo Blas MD at 15:38 EDT , Service support , Cholangiogram,Operative 06/25/21 15:09 IMPRESSION: Residual mild dilatation of the common bile duct. Free flow of contrast is seen within the duodenum. Electronically Signed: Jimbo Blas MD at 15:40 EDT , Service support , Physical Exam Const no apparent distress Resp Resp Narrative: Slightly diminished respiratory excursion, clear in the apices, Cardio regular rate and regular rhythm GI GI Narrative: Soft, mildly distended, infrequent bowel sounds, dressings clean and dry Assessment & Plan Assessment/Plan (1) Cholelithiasis with chronic cholecystitis: (2) Gallstone pancreatitis: PLAN: 61-year-old female with gallstone pancreatitis status post laparoscopic cholecystectomy with cholangiograms yesterday afternoon. Clinically she appears to be making steady progress. Will advance to full liquids. Laboratories pending. We discussed home-going. At this point she does not feel that she will require prescription pain medication. Antibiotics will not be required. Pending progress and laboratory hopeful discharge later today. Del Lugo M.D., F.A.C.S.
--- NOTE | 2021-06-26 05:52 | PCM.DC ---
Discharge Instructions Diet Discharge Diet: Light diet - advance as tolerated (if you have questions about your diet instructions, please talk to you doctor.) Activity Discharge Activity: May Not Drive (for 3-5 days or while taking narcotic pain medicine.) May shower in (days): 1 Lifting Restrictions: 10 pounds Dressing / Incision Call your doctor if your incision/area has: Continuous Slow Oozing, Sudden Increased Bleeding, Increased Pain/ Swelling, Increased Redness and Foul Smelling Discharge Call your doctor if you observe: Fever of 101 or Higher Suture Line Care: Avoid Pulling/Pushing and Avoid Pinching/Bending Additional Dressing/Incision Instructions:: Change or remove dressing in 4 days. Leave steri-strips in place for 1 week. Follow Up Care Please Follow Up With: Del Lugo MD When: Call [phone] to make an appointment to be seen in about 10 days. Test Results: Because of your pancreatitis please avoid high-fat foods like cheese and ice cream and fried foods. I encourage you to continue to use your incentive spirometer for the first week after discharge I encourage activity mobilization and walking as tolerated Acetaminophen can be utilized as needed for discomfort Discharge Plan Admission Admit Date/Time: 06/24/21 09:52 Attending Provider: Elfego Barraza Primary Care Provider: Nayan Donovan Discharge Orders/Prescriptions Prescriptions: No Action ergocalciferol (vitamin D2) 50,000 UNIT capsule 50,000 unit PO QMONTH RF: 0 levothyroxine 112 MCG tablet 112 mcg PO DAILY RF: 0 aspirin 81 mg Tablet 81 mg PO DAILY RF: 0 Referrals / Follow Up: Nayan Donovan MD [Primary Care Provider] -
--- NOTE | 2021-06-26 06:00 | NURSING ---
Pt up ambulating in the halls with her daughter. tolerating well. no distress noted.
[2021-06-26 06:03] LABS: Absolute Lymphocyte Count 1.66 X10^3/uL (0.83-4.51); Absolute Neutrophil Count 7.7 X10^3/uL (2.0-7.7); Basophil# 0.05 X10^3/uL; Basophil% 0.5 % (0-1); Eosinophil# 0.14 X10^3/uL; Eosinophils% 1.4 % (0-5); Hematocrit 41.4 % (37-47); Hemoglobin 13.3 g/dL (12.0-15.0); Lymphocyte # 1.66 X10^3/ul (0.83-4.51); Lymphocyte % 16.3 % (19-41); Mean Corp Hgb Conc 32.1 g/dL (32-36); Mean Corpuscular Hgb 30.2 pg (27.0-32.0); Mean Corpuscular Volume 93.9 fL (81-99); Mean Platelet Vol. 10.1 fl (6.2-12.0); Monocyte# 0.61 X10^3/uL; NRBC Flagged by Analyzer 0 % (0-5); Neutrophil # 7.67 X10^3/uL (2.7-7.7); Neutrophil % 75.5 % (47-70); Platelet Count 326 K/mm3 (150-450); RBC Distribution Width CV 12.7 % (11.6-14.6); RBC Distribution Width SD 43.9 fl (35.1-43.9); Red Blood Count 4.41 M/mm3 (4.2-5.4); White Blood Count 10.2 K/mm3 (4.4-11.0)
[2021-06-26 06:29] LABS: ALB/GLOB Ratio 0.8 RATIO (0.9-2.4); AST(SGOT) 56 U/L (15-37); Alanine Aminotransfer ALT/SGPT 122 U/L (13-56); Albumin, Serum 2.7 g/dL (3.2-5.0); Alkaline Phosphatase 104 U/L (45-117); Anion Gap 4 (5-15); BUN 7 mg/dL (7-18); BUN/Creat Ratio 10.1 RATIO (10-20); Chloride 106 mmol/L (98-107); Creatinine, Serum 0.69 mg/dL (0.55-1.02); EST Glomerular Filtration Rate 91 mL/min (>60); Est Glom Filt Rate - Afr Amer 110 mL/min (>60); Estimated Creatinine Clearance 66.86 ml/min; Globulin 3.5 g/dL (2.2-4.2); Glucose 96 mg/dL (74-106); Lipase 350 U/L (73-393); Potassium 3.9 mmol/L (3.5-5.1); Protein, Total 6.2 g/dL (6.4-8.2); Sodium Level 139 mmol/L (136-145)
[2021-06-26] MEDS: Levothyroxine 112 MCG Tablet PO (07:10)
--- NOTE | 2021-06-26 07:24 | NURSING ---
Pt had been up ambulating in the halls. states she does get SOB after ambulating. pulse ox was 90% on RA. did place patient on O2 again at 2L. pulse ox up to 94%.
[2021-06-26] MEDS: Pantoprazole Sodium 40 MG Tablet PO (10:54)
--- NOTE | 2021-06-26 19:09 | PCM.DC ---
Discharge Instructions Diet Discharge Diet: Light diet - advance as tolerated (if you have questions about your diet instructions, please talk to you doctor.) Activity Discharge Activity: No Restrictions May shower in (days): 1 Weight Bearing Status: Full weight bearing Dressing / Incision Call your doctor if your incision/area has: Continuous Slow Oozing and Increased Pain/ Swelling Call your doctor if you observe: Fever of 101 or Higher Suture Line Care: Avoid Pulling/Pushing and Avoid Pinching/Bending Additional Dressing/Incision Instructions:: Change or remove dressing in 4 days. Leave steri-strips in place for 1 week. Follow Up Care Please Follow Up With: Del Lugo MD When: In 10 days-call for an appointment Test Results: Test results from this visit will be discussed in further detail at your follow-up appointment, if applicable. Discharge Plan Admission Admit Date/Time: 06/24/21 09:52 Primary Reason for Your Visit: Cholelithiasis with chronic cholecystitis, gallstone pancreatitis Attending Provider: Shahid Rocha Primary Care Provider: Nayan Donovan Discharge Orders/Prescriptions Prescriptions: New hydrocodone-acetaminophen 5-325 mg tablet 1 tab PO Q6H PRN (Reason: pain) 7 Days Qty: 10 RF: 0 Continued ergocalciferol (vitamin D2) 50,000 UNIT capsule 50,000 unit PO QMONTH RF: 0 levothyroxine 112 MCG tablet 112 mcg PO DAILY RF: 0 aspirin 81 mg Tablet 81 mg PO DAILY RF: 0 Referrals / Follow Up: Del Lugo MD [STAFF PHYSICIAN] - See Referral Note (In 10 days) Nayan Donovan MD [Primary Care Provider] - Within 2 Weeks Disposition Disposition (needs filled in before D/C Order can be placed): Home, Self Care
--- NOTE | 2021-06-29 19:20 | PCM.DC.SUM ---
Providers Date of Admission: 06/24/21 Date of Discharge: 06/26/21 Primary Care Physician: Dr. Nayan Donovan MD Consultations 06/24/21 14:14 Consult: Gastroenterology Routine Consulting Provider: Lisa Gastroenterology Reason for Consult: Gall stone pancreatitis with Elevated Liver chemistry EMERGENT Consult: No MD Notified: Yes Date Notified: 06/24/21 Time Notified: 14:15 Method of Notification: Verbal Reason For Visit: NSTEMI Diagnosis Discharge Diagnosis (1) Cholelithiasis with chronic cholecystitis: Status: Chronic Code(s): K80.10 - Calculus of gallbladder with chronic cholecystitis without obstruction (2) Gallstone pancreatitis: Status: Acute Code(s): K85.10 - Biliary acute pancreatitis without necrosis or infection Plan: 1. Gallstone pancreatitis #2 chest pain-probably secondary to gallstone pancreatitis #3 Nely's thyroiditis #4 chronic cholecystitis with cholelithiasis Medications at Discharge Home Medications ergocalciferol (vitamin D2) 50,000 unit PO QMONTH 07/16/19 levothyroxine 112 mcg PO DAILY 07/16/19 aspirin 81 mg PO DAILY 06/24/21 hydrocodone-acetaminophen 1 tab PO Q6H PRN 7 Days #10 tab 06/26/21 Hospital Course Operations - (Laparoscopic cholecystectomy with cholangiograms) Procedures Cardiac catheterization Summary of Care Provided Minutes Spent on Discharge: 33 Hospital Course: Patient was seen in the emergency room at [facility] with a chief complaint of chest pain, work-up in the emergency room included a troponin which was mildly elevated, EKG did not show signs of ischemia, cardiology was contacted and took the patient to the [facility] from the ER, catheterization showed normal coronary arteries. Patient had a CT angiogram of her chest which showed no evidence of pulmonary embolism but findings suggestive of pancreatitis, she was felt to have gallstone pancreatitis, she was admitted to [facility], she was seen in consultation by general surgery and GI, on 06/25/2021, patient underwent laparoscopic cholecystectomy with cholangiograms. Patient tolerated the procedure well and on 06/26/2021, patient was seen and examined: On examination she appeared in good health and spirits, she does not appear to be in any distress. Vital signs as documented. Skin warm and dry and without overt rashes. Neck without JVD, thyroid appears normal, trachea is midline, neck is supple. Lungs clear, normal air movement was noted. Heart exam notable for regular rhythm, normal sounds and absence of murmurs, rubs or gallops. Abdomen unremarkable and without evidence of organomegaly, masses, or abdominal aortic enlargement, bowel sounds are present in all 4 quadrants, no abdominal tenderness was noted. Extremities nonedematous, no cyanosis was noted, no clubbing was noted. Neuro: Cranial nerves II through XII are grossly intact, no focal motor deficits were noted, sensation to light touch and pinprick is intact, motor exam 5/5 throughout. Psych: Patient is alert and oriented x3, she does not appear anxious or depressed, she does not appear agitated. Patient appears stable for discharge on 06/26/2021. Weight / BMI Weight Weight: 81 kg Body Mass Index (BMI) 31.6 ABG / Lab / Microbiology Data Result Diagrams: 06/26/21 05:42 06/26/21 05:42 D/C Instructions Discharge Diet: Light diet - advance as tolerated (if you have questions about your diet instructions, please talk to you doctor.) May shower in (days): 1 Weight Bearing Status: Full weight bearing Call your doctor if your incision/area has: Continuous Slow Oozing and Increased Pain/ Swelling Call your doctor if you observe: Fever of 101 or Higher Suture Line Care: Avoid Pulling/Pushing and Avoid Pinching/Bending Additional Dressing/Incision Instructions: Change or remove dressing in 4 days. Leave steri-strips in place for 1 week. Please Follow Up With: Dle Lugo MD When: In 10 days-call for an appointment Meaningful Use Info Meaningful Use Diagnoses (Choose all that apply): None applicable Discharge Plan Admission Admit Date/Time: 06/24/21 09:52 Primary Reason for Your Visit: Cholelithiasis with chronic cholecystitis, gallstone pancreatitis Attending Provider: Shahid Rocha Primary Care Provider: Nayan Donovan Discharge Orders/Prescriptions Prescriptions: New hydrocodone-acetaminophen 5-325 mg tablet 1 tab PO Q6H PRN (Reason: pain) 7 Days Qty: 10 RF: 0 Continued ergocalciferol (vitamin D2) 50,000 UNIT capsule 50,000 unit PO QMONTH RF: 0 levothyroxine 112 MCG tablet 112 mcg PO DAILY RF: 0 aspirin 81 mg Tablet 81 mg PO DAILY RF: 0 Referrals / Follow Up: Del Lugo MD [STAFF PHYSICIAN] - See Referral Note (In 10 days) Nayan Donovan MD [Primary Care Provider] - Within 2 Weeks Disposition Disposition (needs filled in before D/C Order can be placed): Home, Self Care Charges/Coding Visit Charges Inpatient E&M: 92454 Disch Hosp
== END 2021-06-26 20:47 | disposition home or self-care (01) | DRG 417 ==
LOC: ED 07:17 → SDC 07:56 → ACINP 07:57 → CLSP 13:07 → PCU 16:23 → MS2 06-26 04:19
PROVIDERS: Surgery; Admitting Provider Internal Medicine; Emergency Provider Emergency Medicine; PCP Family Medicine; Referring Provider Internal Medicine Cardiovascular Disease; Visit Provider Internal Medicine
PROC: 0FT44ZZ Resection of Gallbladder, Percutaneous Endoscopic Approach (ICD-10-PCS; CPT 47610; principal; 2021-06-25 14:10)
DX: K80.10 Calculus of gallbladder with chronic cholecystitis without obstruction (principal); K85.10 Biliary acute pancreatitis without necrosis or infection; I20.0 Unstable angina; E06.3 Autoimmune thyroiditis; E55.9 Vitamin D deficiency, unspecified; R73.03 Prediabetes; I49.3 Ventricular premature depolarization; Z79.82 Long term (current) use of aspirin; Z79.890 Hormone replacement therapy; Z87.891 Personal history of nicotine dependence
CPT/HCPCS: 36415; 71045; 71275; 74300; 74301; 76000; 76705; 80048; 80053; 80076; 83690; 83735; 84100; 84443; 84484; 85025; 87641; 88304; 93005; 93454; 93567; 99152; 99153; 99251; 99283; J7030; J7040; J7120; Q9967; A4216; C1769; C1894; G0463; J1610; J2405

== ENCOUNTER → 2022-02-17 | Outpatient (CLI) | payer OTHER, SELFPAY ==
--- NOTE | 2022-02-17 12:03 | BI_ITS ---
MAMMOGRAPHY - BILATERAL SCREENING REASON FOR EXAM: Female, 61 years old. Routine annual screening examination. PERTINENT HISTORY: Aunt with breast cancer. TECHNIQUE: Digital bilateral breast alyssa (3D mammographic acquisition) in the CC and MLO projections. 2-D mediolateral oblique (MLO) and craniocaudad (CC) views of both breasts were obtained. CAD: Full Field Digital Mammography with Computer Added Detection was performed. COMPARISON: Comparison is made with prior study 07/10/2020 and 07/04/2019. FINDINGS: Breast Composition: There are scattered areas of fibroglandular density. There are no dominant masses or suspicious calcifications. Stable small benign-appearing bilateral axillary nodes. Stable 5 mm x 5 well-defined nodule in the axilla region of the left breast. This was demonstrated to be a small benign-appearing lymph node on prior sonogram examinations. No other significant abnormalities are identified. There has been no significant change since the prior study. BI/SCRN MAMM (CAD)W/ALYSSA BILAT IMPRESSION: Stable bilateral screening mammogram. Yearly follow-up mammogram recommended. (A) ASSESSMENT CATEGORY: BIRADS Category 2: Benign. A letter regarding these results will be sent to the patient by the facility within 30 days. Approximately 10% of breast cancers are not detected by mammography. A normal mammogram should not delay biopsy of a clinically suspicious abnormality. [id number] Electronically Signed: Jimbo Blas MD at 13:02 EDT ,
== END | disposition home or self-care (01) ==
LOC: OPBI 12:02
PROVIDERS: PCP Family Medicine; Visit Provider Family Medicine
DX: Z12.31 Encounter for screening mammogram for malignant neoplasm of breast (principal)
CPT/HCPCS: 77063; 77067

== ENCOUNTER → 2022-04-02 | Outpatient (CLI) | payer OTHER, SELFPAY ==
[2022-04-02 07:00] LABS: Color, Urine Yellow (Yellow); Glucose, Dipstick Normal (Normal); Ketone-Dipstick Negative (Negative); Leukocyte Esterase-Dipstick 25 /ul (Negative); Nitrite-Dipstick Negative (Negative); Occult Blood-Urine Negative /ul (Negative); Protein-Dipstick Negative (Negative); Specific Gravity, Urine 1.025 (1.002-1.030); Urine Bilirubin Dipstick Negative (Negative); Urine Clarity Clear (Clear); Urine Urobilinogen Normal (Normal)
[2022-04-02 07:01] LABS: Absolute Lymphocyte Count 2.33 X10^3/uL (0.83-4.51); Absolute Neutrophil Count 3.9 X10^3/uL (2.0-7.7); Basophil# 0.09 X10^3/uL; Basophil% 1.3 % (0-1); Eosinophil# 0.19 X10^3/uL; Eosinophils% 2.7 % (0-5); Hematocrit 44.1 % (37-47); Hemoglobin 14.6 g/dL (12.0-15.0); Lymphocyte # 2.33 X10^3/ul; Lymphocyte % 33.1 % (19-41); Mean Corp Hgb Conc 33.1 g/dL (32-36); Mean Corpuscular Hgb 29.7 pg (27.0-32.0); Mean Corpuscular Volume 89.6 fL (81-99); Mean Platelet Vol. 10.1 fl (6.2-12.0); Monocyte# 0.53 X10^3/uL; Monocyte% 7.5 % (0-10); NRBC Flagged by Analyzer 0 % (0-5); Neutrophil # 3.87 X10^3/uL (2.7-7.7); Platelet Count 352 K/mm3 (150-450); RBC Distribution Width CV 12.6 % (11.6-14.6); RBC Distribution Width SD 41.4 fl (35.1-43.9); Red Blood Count 4.92 M/mm3 (4.2-5.4)
[2022-04-02 08:09] LABS: AST(SGOT) 17 U/L (15-37); Alanine Aminotransfer ALT/SGPT 28 U/L (13-56); Albumin, Serum 3.4 g/dL (3.2-5.0); Alkaline Phosphatase 140 U/L (45-117); Anion Gap 7 (5-15); BUN 17 mg/dL (7-18); BUN/Creat Ratio 15.2 RATIO (10-20); Bilirubin, Direct 0.07 mg/dL (0.00-0.30); Calcium,Total 8.6 mg/dL (8.5-10.1); Chloride 108 mmol/L (98-107); Cholesterol 179 mg/dL (200); Creatinine, Serum 1.12 mg/dL (0.55-1.02); EST Glomerular Filtration Rate 52 mL/min (>60); Est Glom Filt Rate - Afr Amer 63 mL/min (>60); Globulin 3.4 g/dL (2.2-4.2); Glucose 116 mg/dL (74-106); High Density Lipoprotein 33 mg/dL; LDH 197 U/L (84-246); Potassium 3.9 mmol/L (3.5-5.1); Protein, Total 6.8 g/dL (6.4-8.2); Sodium Level 139 mmol/L (136-145); Thyroid Stim Hormone (TSH) 0.78 uIU/mL (0.358-3.74); Triglycerides 289 mg/dL; Uric Acid 5.3 mg/dL (2.6-6.0); Very Low Density Lipoprotein 58 mg/dL (5-40)
== END | disposition home or self-care (01) ==
LOC: LAB 06:07
PROVIDERS: PCP Family Medicine; Referring Provider Family Medicine; Visit Provider Family Medicine
DX: Z00.00 Encounter for general adult medical examination without abnormal findings (principal); E03.9 Hypothyroidism, unspecified
CPT/HCPCS: 84443

== ENCOUNTER → 2022-05-13 | Outpatient (CLI) | payer OTHER, SELFPAY ==
--- NOTE | 2022-05-13 08:15 | LES_PTH ---
PATIENT: MARTÍN CARD LOC: [facility] U#:[id number] AGE/SX: 61/F ROOM: RE05/13/[address]: Dr. Del Lugo MD : 1960 BED: DIS: 05/13/2022 SPEC #: [id number] RECD: 05/13/22 09:36 STATUS: DIOMEDES MARTI #: [id number] YESSICA: 05/13/22 08:[address]: Del Lugo DEPT: SURGICAL PATHOLOGY RECD BY: Sharita Cisneros ENTERED: 05/13/22 11:00 SP TYPE: Lesion OTHR DR: Dr. Nayan Donovan MD Tissues: Skin of arm Procedures: Surgery Specimen Level IV HEADER OPERATION: Excision left forearm lesion PRE-OP DIAGNOSIS: Skin lesion arm TISSUE SUBMITTED: Left forearm tissue MICROSCOPIC DIAGNOSIS Left arm lesion, excisional biopsy: Actinic keratosis with verrucous features with moderate atypia, completely excised. Extensive solar elastosis. Negative for malignancy. SABRINA:makenzie 05/14/2022 COMMENT Case has been reviewed in consultation with Dr. Hawk who concurs with the above diagnosis. IDC:AM MICROSCOPIC DESCRIPTION Slides are reviewed. GROSS DESCRIPTION Received in fixative is one container labeled with the patient's name and designated left forearm. The specimen consists of an ellipse of light weiss excised skin measuring 1.6 x 0.8 x 0.3 cm. The specimen is ink, serially sectioned and totally submitted in one cassette. / AM:makenzie 05/13/2022 TC:5 CPT: 50845
== END | disposition home or self-care (01) ==
LOC: LABSPEC 09:48
PROVIDERS: PCP Family Medicine; Visit Provider Surgery
DX: L98.9 Disorder of the skin and subcutaneous tissue, unspecified (principal)
CPT/HCPCS: 88305

== ENCOUNTER → 2022-08-03 | Outpatient (CLI) | payer OTHER, SELFPAY ==
[2022-08-03 13:49] LABS: Hepatitis B Surf AB - EMP Reactive
== END | disposition home or self-care (01) ==
LOC: PAVLAB 12:41
PROVIDERS: PCP Family Medicine
DX: Z11.59 Encounter for screening for other viral diseases (principal)
CPT/HCPCS: 86706

== ENCOUNTER → 2023-01-27 | Outpatient (CLI) | payer OTHER, SELFPAY ==
[2023-01-27 07:56] LABS: Thyroid Stim Hormone (TSH) 4.06 uIU/mL (0.358-3.74)
[2023-01-27 08:08] LABS: Hemoglobin A1c 6.2 % (3.8-5.6)
== END | disposition home or self-care (01) ==
LOC: LAB 06:10
PROVIDERS: PCP Family Medicine; Referring Provider Family Medicine; Visit Provider Family Medicine
DX: E03.9 Hypothyroidism, unspecified (principal); R73.01 Impaired fasting glucose
CPT/HCPCS: 36415; 83036; 84443

== ENCOUNTER → 2023-02-22 | Outpatient (CLI) | payer OTHER, SELFPAY ==
--- NOTE | 2023-02-22 09:28 | BI_ITS ---
MAMMOGRAPHY - BILATERAL SCREENING REASON FOR EXAM: Female, 62 years old. Routine annual screening examination. PERTINENT HISTORY: Aunt with breast cancer. TECHNIQUE: Digital bilateral breast alyssa (3D mammographic acquisition) in the CC and MLO projections. 2-D mediolateral oblique (MLO) and craniocaudad (CC) views of both breasts were obtained. CAD: Full Field Digital Mammography with Computer Added Detection was performed. COMPARISON: Comparison is made with prior study dated February 17, 2022 and July 10, 2020. FINDINGS: Breast Composition: There are scattered areas of fibroglandular density. There are no dominant masses or suspicious calcifications. Stable 5 mm well-defined nodule in the axillary region of the left breast. This was demonstrated to be a benign appearing lymph node on prior sonogram. No other significant abnormalities are identified. There has been no significant change since the prior study. BI/SCRN MAMM (CAD)W/ALYSSA BILAT IMPRESSION: Stable bilateral screening mammogram. Yearly follow-up mammogram recommended. (A) ASSESSMENT CATEGORY: BIRADS Category 2: Benign. A letter regarding these results will be sent to the patient by the facility within 30 days. Approximately 10% of breast cancers are not detected by mammography. A normal mammogram should not delay biopsy of a clinically suspicious abnormality. [id number] Electronically Signed: Jimbo Blas MD at 10:31 EDT ,
== END | disposition home or self-care (01) ==
LOC: OPBI 09:26
PROVIDERS: PCP Family Medicine; Referring Provider Family Medicine; Visit Provider Family Medicine
DX: Z12.31 Encounter for screening mammogram for malignant neoplasm of breast (principal)
CPT/HCPCS: 77063; 77067

== ENCOUNTER 2023-03-18 06:48 | Day surgery (SDC) | payer OTHER, SELFPAY ==
[2023-03-18] VITALS (8 sets, daily range): BP systolic 115–146; BP diastolic 68–98; PULSE 48–90; RESP 16–18; TEMP 35.9–36.2; O2SAT 95–100; BMI 31.9
--- NOTE | 2023-03-18 | COLBX_PTH ---
PATIENT: MARTÍN CARD LOC: EN U#:[id number] AGE/SX: 62/F ROOM: RE03/18/[address]: Dr. Del Lugo MD : 1960 BED: DIS: 03/18/2023 SPEC #: [id number] RECD: 03/18/23 13:16 STATUS: DIOMEDES MARTI #: [id number] YESSICA: 03/18/23 00:[address]: Del Lugo DEPT: SURGICAL PATHOLOGY RECD BY: José Antonio Duff ENTERED: 03/18/23 13:17 SP TYPE: COLON BX OTHR DR: Dr. Mary Ann Rodríguez MD Tissues: A - Transverse colon B - COLON BIOPSY C - Rectum, NOS Procedures: Surgery Specimen Level IV HEADER OPERATION: Colonoscopy ? open access (MAC), biopsies PRE-OP DIAGNOSIS: History of colonoscopy with polypectomy TISSUE SUBMITTED: A ? New transverse polyp biopsy, B ? Hepatic flexure polyp biopsy, C ? Rectum polyp biopsy MICROSCOPIC DIAGNOSIS A. Transverse colon polyp, biopsy: Tubular adenoma. B. Hepatic flexure polyp, biopsy: Fragments of tubular adenoma. C. Rectum polyp, biopsy: Hyperplastic polyp. SABRINA:makenzie 03/21/2023 MICROSCOPIC DESCRIPTION Slides are reviewed. GROSS DESCRIPTION A - Received in fixative is one container labeled with the patient's name and designated new transverse polyp biopsy. The specimen consists of two irregular fragments of light weiss soft tissue that in aggregate measure 0.6 x 0.3 x 0.1 cm. The specimen is totally submitted in one cassette. B - Received in fixative is one container labeled with the patient's name and designated hepatic flexure polyp biopsy. The specimen consists of two irregular fragments of light weiss soft tissue that in aggregate measure 0.5 x 0.2 x 0.1 cm. The specimen is totally submitted in one cassette. C - Received in fixative is one container labeled with the patient's name and designated rectum polyp biopsy. The specimen consists of one irregular fragment of light weiss soft tissue that measures 0.4 x 0.3 x 0.1 cm. The specimen is totally submitted in one cassette. / SABRIAN:makenzie 03/18/2023 TC:1 CPT: 40347 x3
--- NOTE | 2023-03-18 07:00 | PCM.HP.STD ---
[facility] - General General Date of Service: 03/18/23 Chief Complaint: Screening for intestinal cancer [facility] Narrative MARTÍN CARD, is a 62 F who presents for screening colonoscopy today. She has a personal history of a colon polyp. I performed a previous colonoscopy May 2011. She presents via open access. She has no specific complaints today. Denies any bright red blood per rectum or melena. No abdominal pain. No unexpected weight loss. She otherwise enjoys good stable health [facility] Medical History (Updated 03/15/23 @ 13:34 by Josiane Stephenson) Amputated finger Former smoker H/O Nely thyroiditis History of echocardiogram History of stress test Hypothyroidism Impaired fasting glucose Prediabetes PTSD (post-traumatic stress disorder) Status post amputation of finger of left hand Thyroid disease Type 2 diabetes mellitus without complication Vitamin D deficiency Home Medications ergocalciferol (vitamin D2) 1,250 mcg (50,000 unit) capsule 50,000 unit PO QMONTH vitamin 07/16/19 [History Last Taken 05/10/21] levothyroxine 125 mcg capsule 125 mcg PO DAILY 02/02/23 [History Last Taken 03/18/23] metformin 500 mg tablet 500 mg PO DAILY 02/02/23 [History Last Taken Unknown] Allergy/AdvReac Type Severity Reaction Status Date / Time gabapentin [From Neurontin] Allergy Severe Other Verified 03/18/23 07:12 Family History (Updated 02/02/23 @ 08:24 by Shaila Freeman) Mother Hypertension Thyroid disorder Diabetes CVA (cerebral vascular accident) Skin cancer Father Hypertension Diabetes Parkinson disease Sister Hypertension Diabetes Scleroderma CHF (congestive heart failure) connective tissue disease Grandmother Colon cancer Aunt Colon cancer Surgical History (Updated 03/15/23 @ 13:34 by Josiane Stephenson) H/O total hysterectomy History of cardiac catheterization History of colonoscopy History of left heart catheterization (06/24/21) S/P laparoscopic cholecystectomy Social History Smoking Status: Former smoker quit date: 10/10/11 pack-years: 30 Tobacco: How many years used: 30 Electronic Cigarette Use: with nicotine and not used second hand exposure: Yes quit status: quit date established counseling given: provider counseling alcohol intake: current details: maybe twice a year. substance use type: does not use ROS Constitutional Constitutional: Reports systems reviewed and no addt'l complaints, except as documented Cardiovascular Cardiovascular: Denies chest pain Respiratory/Chest Respiratory/Chest: Denies shortness of breath at rest Gastrointestinal Gastrointestinal: Denies abdominal pain, change in bowel habits, hematochezia or melena Physical Exam Const alert, oriented x3 and no apparent distress General Appearance: cooperative and comfortable Eyes General Eye: normal appearance of both eyes Neck General: normal visual inspection Chest inspection of chest normal Resp Effort and Inspection: able to speak in complete sentences and symmetric chest movement Auscultation: clear to auscultation bilaterally Cardio regular rate and regular rhythm GI soft to palpation, non-tender and non-distended Extremity no calf tenderness Neuro oriented x3 Psych thought process normal Assessment & Plan Assessment/Plan (1) History of colonoscopy with polypectomy: PLAN: I recommended the patient a colonoscopy with possible biopsy or polypectomy as indicated. She is aware of the technique, benefit, risk, alternatives. She has had an opportunity to ask and have questions answered. She presents via open access today. We will proceed as noted. Del Lugo M.D., F.A.C.S.
[2023-03-18] MEDS: Lactated Ringers 1,000 ML 15 ML IV (07:14)
[2023-03-18 07:34] LABS: Bedside Glucose 118 mg/dL (74-106)
--- NOTE | 2023-03-18 08:57 | OP.COLON_ITS ---
Patient Name: Adrianna Valverde Procedure Date: 03/18/2023 8:21 AM Date of : 1960 Age: 62 Procedure: Colonoscopy Indications: Screening for colorectal malignant neoplasm Providers: Del Lugo MD Referring MD: Mary Ann Rodríguez Medicines: See the Anesthesia note for documentation of the administered medications Patient Profile: Last Colonoscopy: 2010. Complications: No immediate complications. Procedure: Pre-Anesthesia Assessment: - Prior to the procedure, a History and Physical was performed, and patient medications and allergies were reviewed. The patient's tolerance of previous anesthesia was also reviewed. The risks and benefits of the procedure and the sedation options and risks were discussed with the patient. All questions were answered, and informed consent was obtained. Prior Anticoagulants: The patient has taken no previous anticoagulant or antiplatelet agents. ASA Grade Assessment: II - A patient with mild systemic disease. After reviewing the risks and benefits, the patient was deemed in satisfactory condition to undergo the procedure. After I obtained informed consent, the scope was passed under direct vision. Throughout the procedure, the patient's blood pressure, pulse, and oxygen saturations were monitored continuously. The pediatric colonoscope was introduced through the anus and advanced to the cecum, identified by appendiceal orifice and ileocecal valve. The colonoscopy was performed without difficulty. The patient tolerated the procedure well. The quality of the bowel preparation was good. The terminal ileum and the ileocecal valve were photographed. Scope In: 8:32:19 AM Scope Withdrawal Time 0 hours 15 minutes 23 seconds Scope Out: 8:51:51 AM Total Procedure Duration Time 0 hours 19 minutes 32 seconds Findings: The digital rectal exam findings include non-thrombosed internal hemorrhoids and internal hemorrhoids that prolapse with straining, but spontaneously regress to the resting position (Grade II). A 4 mm polyp was found in the hepatic flexure. The polyp was sessile. The polyp was removed with a cold biopsy forceps. Resection and retrieval were complete. A 4 mm polyp was found in the proximal transverse colon. The polyp was sessile. The polyp was removed with a cold biopsy forceps. Resection and retrieval were complete. A 3 mm polyp was found in the rectum. The polyp was sessile. The polyp was removed with a cold biopsy forceps. Resection and retrieval were complete. Scattered diverticula were found in the sigmoid colon. Impression: - Non-thrombosed internal hemorrhoids and internal hemorrhoids that prolapse with straining, but spontaneously regress to the resting position (Grade II) found on digital rectal exam. - One 4 mm polyp at the hepatic flexure, removed with a cold biopsy forceps. Resected and retrieved. - One 4 mm polyp in the proximal transverse colon, removed with a cold biopsy forceps. Resected and retrieved. - One 3 mm polyp in the rectum, removed with a cold biopsy forceps. Resected and retrieved. - Diverticulosis in the sigmoid colon. Recommendation: - Discharge patient to home. - Resume previous diet. - Continue present medications. - Repeat colonoscopy in 5 years for surveillance based on pathology results. - Telephone my office for pathology results in 1 week. Procedure Code(s): --- Professional --- 39746, Colonoscopy, flexible; with biopsy, single or multiple Diagnosis Code(s): --- Professional --- Z12.11, Encounter for screening for malignant neoplasm of colon K64.1, Second degree hemorrhoids D12.3, Benign neoplasm of transverse colon (hepatic flexure or splenic flexure) K62.1, Rectal polyp K57.30, Diverticulosis of large intestine without perforation or abscess without bleeding CPT copyright 2017 [employer]. All rights reserved. The codes documented in this report are preliminary and upon head of housekeeping review may be revised to meet current compliance requirements. Del Lugo MD 03/18/2023 8:56:53 AM This report has been signed electronically. Number of Addenda: 0 Note Initiated On: 03/18/2023 8:21 AM
--- NOTE | 2023-03-18 08:58 | OP.CCLET_ITS ---
03/18/2023 Mary Ann Rodríguez [place] [id number] [place] [address] Re : Colonoscopy procedure for Adrianna Valverde Dear Dr. Rodríguez This procedure was performed on Saturday, March 18, 2023. My impressions and recommendations are as follows: Impressions : - Non-thrombosed internal hemorrhoids and internal hemorrhoids that prolapse with straining, but spontaneously regress to the resting position (Grade II) found on digital rectal exam. - One 4 mm polyp at the hepatic flexure, removed with a cold biopsy forceps. Resected and retrieved. - One 4 mm polyp in the proximal transverse colon, removed with a cold biopsy forceps. Resected and retrieved. - One 3 mm polyp in the rectum, removed with a cold biopsy forceps. Resected and retrieved. - Diverticulosis in the sigmoid colon. Recommendations : - Discharge patient to home. - Resume previous diet. - Continue present medications. - Repeat colonoscopy in 5 years for surveillance based on pathology results. - Telephone my office for pathology results in 1 week. My findings are described in the full procedure note, which is enclosed. If I can be of further assistance, please feel free to contact me at Doctor phone number(s): Work: . Sincerely, Del Lugo MD 03/18/2023 8:56:53 AM This report has been signed electronically.
== END 2023-03-18 09:43 | disposition home or self-care (01) ==
LOC: EN 06:48 → AC 06:49
PROVIDERS: PCP Family Medicine; Referring Provider Family Medicine; Visit Provider Surgery
PROC: 0DJD8ZZ Inspection of Lower Intestinal Tract, Via Natural or Artificial Opening Endoscopic (ICD-10-PCS; CPT 45378; principal; 2023-03-18 08:10)
DX: Z12.11 Encounter for screening for malignant neoplasm of colon (principal); E11.9 Type 2 diabetes mellitus without complications; D12.3 Benign neoplasm of transverse colon; K62.1 Rectal polyp; K57.30 Diverticulosis of large intestine without perforation or abscess without bleeding; E03.9 Hypothyroidism, unspecified; E55.9 Vitamin D deficiency, unspecified; K64.1 Second degree hemorrhoids; Z87.891 Personal history of nicotine dependence; Z80.0 Family history of malignant neoplasm of digestive organs; Z79.84 Long term (current) use of oral hypoglycemic drugs; Z79.899 Other long term (current) drug therapy; Z86.010 Personal history of colon polyps; Z86.16 Personal history of COVID-19
CPT/HCPCS: 45380; 82962; 88305; J7120; J2405

== ENCOUNTER → 2023-04-25 | Outpatient (CLI) | payer OTHER, SELFPAY ==
[2023-04-25 07:27] LABS: Thyroid Stim Hormone (TSH) 0.54 uIU/mL (0.358-3.74)
== END | disposition home or self-care (01) ==
PROVIDERS: PCP Family Medicine; Referring Provider Family Medicine; Visit Provider Family Medicine
DX: E03.9 Hypothyroidism, unspecified (principal)
CPT/HCPCS: 36415; 84443

== ENCOUNTER → 2024-05-04 | Outpatient (CLI) | payer OTHER, SELFPAY ==
[2024-05-04 06:43] LABS: Absolute Lymphocyte Count 2.06 X10^3/uL (0.83-4.51); Absolute Neutrophil Count 3.4 X10^3/uL (2.0-7.7); Basophil# 0.07 X10^3/uL; Basophil% 1.1 % (0-1); Eosinophil# 0.15 X10^3/uL; Eosinophils% 2.4 % (0-5); Hematocrit 42.3 % (37-47); Hemoglobin 13.7 g/dL (12.0-15.0); Lymphocyte # 2.06 X10^3/ul (0.83-4.51); Lymphocyte % 32.9 % (19-41); Mean Corp Hgb Conc 32.4 g/dL (32-36); Mean Corpuscular Hgb 28.9 pg (27.0-32.0); Mean Corpuscular Volume 89.2 fL (81-99); Monocyte# 0.54 X10^3/uL; Monocyte% 8.6 % (0-10); NRBC Flagged by Analyzer 0 % (0-5); Neutrophil # 3.42 X10^3/uL (2.7-7.7); Neutrophil % 54.7 % (47-70); Platelet Count 335 K/mm3 (150-450); RBC Distribution Width CV 12.7 % (11.6-14.6); RBC Distribution Width SD 41.8 fl (35.1-43.9); Red Blood Count 4.74 M/mm3 (4.2-5.4); White Blood Count 6.3 K/mm3 (4.4-11.0)
[2024-05-04 07:27] LABS: T4 Free Direct 1.36 ng/dL (0.76-1.46); Thyroid Stim Hormone (TSH) 0.93 uIU/mL (0.358-3.74)
== END | disposition home or self-care (01) ==
LOC: LAB 05:56
PROVIDERS: PCP Family Medicine; Visit Provider Family Medicine
DX: R25.1 Tremor, unspecified (principal); E03.9 Hypothyroidism, unspecified
CPT/HCPCS: 36415; 84439; 84443; 85025

== ENCOUNTER → 2024-07-06 | Outpatient (CLI) | payer OTHER, SELFPAY ==
--- NOTE | 2024-07-06 13:43 | RAD_ITS ---
EXAM: XR RIGHT FOOT COMPLETE, 3 OR MORE VIEWS CLINICAL INDICATION: PAIN TECHNIQUE: Frontal, lateral and oblique views of the right foot. COMPARISON: No relevant prior studies available. FINDINGS: BONES/JOINTS: Unremarkable. No acute fracture. No subluxation. Normal alignment. Preservation of the joint space. No sclerotic or destructive changes observed. SOFT TISSUES: Unremarkable. No soft tissue swelling or gas. No radiopaque foreign body. RAD/Foot min 3 Views IMPRESSION: Negative right foot x-rays. Electronically Signed: Krzysztof Frausto MD at 0:08 EDT ,
[2024-07-06 15:14] LABS: Absolute Lymphocyte Count 2.67 X10^3/uL (0.83-4.51); Absolute Neutrophil Count 4.1 X10^3/uL (2.0-7.7); Basophil# 0.07 X10^3/uL; Basophil% 0.9 % (0-1); Eosinophil# 0.21 X10^3/uL; Eosinophils% 2.8 % (0-5); Hematocrit 44.4 % (37-47); Hemoglobin 14.2 g/dL (12.0-15.0); Lymphocyte # 2.67 X10^3/ul (0.83-4.51); Lymphocyte % 35.2 % (19-41); Mean Corpuscular Hgb 28.7 pg (27.0-32.0); Mean Corpuscular Volume 89.7 fL (81-99); Mean Platelet Vol. 10.1 fl (6.2-12.0); Monocyte# 0.52 X10^3/uL; Monocyte% 6.9 % (0-10); NRBC Flagged by Analyzer 0 % (0-5); Neutrophil # 4.09 X10^3/uL (2.7-7.7); Neutrophil % 53.8 % (47-70); Platelet Count 383 K/mm3 (150-450); RBC Distribution Width CV 12.7 % (11.6-14.6); RBC Distribution Width SD 41.9 fl (35.1-43.9); Red Blood Count 4.95 M/mm3 (4.2-5.4); White Blood Count 7.6 K/mm3 (4.4-11.0)
[2024-07-06 15:53] LABS: Uric Acid 5.2 mg/dL (2.6-6.0)
== END | disposition home or self-care (01) ==
LOC: MTLAB 13:41
PROVIDERS: PCP Family Medicine; Referring Provider Family Medicine; Visit Provider Family Medicine
DX: M79.671 Pain in right foot (principal)
CPT/HCPCS: 36415; 73630; 84550; 85025

== ENCOUNTER → 2024-07-11 | Outpatient (CLI) | payer OTHER, SELFPAY ==
--- NOTE | 2024-07-11 15:32 | BI_ITS ---
MAMMOGRAPHY - BILATERAL SCREENING REASON FOR EXAM: Female, 64 years old. Routine annual screening examination. PERTINENT HISTORY: Aunt with breast cancer. TECHNIQUE: Digital bilateral breast alyssa (3D mammographic acquisition) in the CC and MLO projections. 2-D mediolateral oblique (MLO) and craniocaudad (CC) views of both breasts were obtained. CAD: Full Field Digital Mammography with Computer Added Detection was performed. COMPARISON: Comparison is made with prior study of February 22, 2023 and February 17, 2022. FINDINGS: Breast Composition: There are scattered areas of fibroglandular density. There are no dominant masses or suspicious calcifications. Stable small benign-appearing bilateral axillary lymph nodes. Stable 5 mm well-defined nodule in the axillary region of the left breast suggestive of a small lymph node. No other significant abnormalities are identified. There has been no significant change since the prior study. BI/SCRN MAMM (CAD)W/ALYSSA BILAT IMPRESSION: Stable bilateral screening mammogram. Yearly follow-up mammogram recommended. (A) ASSESSMENT CATEGORY: BIRADS Category 2: Benign. A letter regarding these results will be sent to the patient by the facility within 30 days. Approximately 10% of breast cancers are not detected by mammography. A normal mammogram should not delay biopsy of a clinically suspicious abnormality. [id number] Electronically Signed: Jimbo Blas MD at 9:40 EDT ,
== END | disposition home or self-care (01) ==
PROVIDERS: PCP Family Medicine; Referring Provider Family Medicine; Visit Provider Family Medicine
DX: Z12.31 Encounter for screening mammogram for malignant neoplasm of breast (principal)
CPT/HCPCS: 77063; 77067

== ENCOUNTER → 2025-01-15 | Outpatient (CLI) | payer OTHER, SELFPAY | END | disposition home or self-care (01) | LOC: MTLAB 08:55 | PROVIDERS: PCP Family Medicine; Referring Provider Nurse Practitioner Family; Visit Provider Nurse Practitioner Family | DX: R19.7 Diarrhea, unspecified (principal) | CPT/HCPCS: 83630; 87177; 87209; 87493; 87506 ==

== ENCOUNTER → 2025-05-10 | Outpatient (CLI) | payer OTHER, SELFPAY ==
--- OUTSIDE RECORDS SUMMARY | 2025-05-10 12:54 | XMS RPT_ITS | CCD ---
Author Organization [facility] Care Team Providers Care Personal Banking Assistant Name Role Phone ANDREW FREEMAN (ROMEL) Referring Unavailable Dr. Nayan Donovan Primary Care Provider Shaila Freeman Attending Provider Unavailable Dr. Nayan Donovan Referring Provider ROMEL Abdalla Attending Provider [phone] Dr. Del Lugo Attending Provider Dr. Nayan Donovan Primary Care Provider [phone] Nurse, Surgery Attending Provider Unavailable Miedel, Mary Ann Primary Care Unavailable Miedel, Mary Ann Attending Unavailable Miedel, Mary Ann Referring Unavailable Miedel, Mary Ann Primary Care Unavailable Emmy Wolfe Attending Unavailable Emmy Wolfe Referring Unavailable Miedel, Mary Ann Primary Care Unavailable Miedel, Mary Ann Attending Unavailable Miedel, Mary Ann Referring Unavailable Miedel, Mary Ann Primary Care Unavailable Nain Cabrera Attending Unavailable Miedel, Mary Ann Primary Care Unavailable Miedel, Mary Ann Attending Unavailable Miedel, Mary Ann Referring Unavailable Allergies Allergy Classification Reported Allergen(s) Allergy Type Date of Onset Reaction(s) Facility (1 source) ELASTIC; Translations: [ELASTIC] Propensity to adverse reactions (disorder) 2 [facility] Repository (4 sources) gabapentin Drug Allergy 1 Other [facility] Work Phone: (1 source) gabapentin Drug Allergy 3 [facility] Medications Current Medications Medication Drug Class(es) Dates Sig (Normalized) Sig (Original) ergocalciferol 1.25 mg oral capsule (4 sources) Provitamin D2 Compound Start: 07-16-2019 take 26801 [IU] by mouth every month Ergocalciferol (Vitamin D2) Active 96602 UNIT PO EVERY MONTH July 16, 2019 12:00am levothyroxine sodium 0.112 mg oral tablet (4 sources) l-Thyroxine Start: 07-16-2019 take 112 ug by mouth once daily Levothyroxine Active 112 MCG PO DAILY July 16, 2019 12:00am Completed/Discontinued Medications Medication Drug Class(es) Dates Sig (Normalized) Sig (Original) acetaminophen 325 mg / HYDROcodone bitartrate 5 mg oral tablet (4 sources) Opioid Agonist Start: 06-26-2021 End: 07-09-2021 take 1 tablet by mouth every six hours Hydrocodone-Acetam inophen Discontinued 1 TABLET PO EVERY 6 HOURS 10 June 26, 2021 July 09, 2021 8:17am ascorbic acid 1000 mg oral tablet (4 sources) Vitamin C Start: 07-16-2019 End: 07-17-2019 take 1000 mg by mouth once daily Ascorbic Acid (Vitamin C) Discontinued 1000 MG PO DAILY July 16, 2019 12:00am July 17, 2019 1:37pm aspirin 81 mg oral tablet (4 sources) Platelet Aggregation Inhibitor, Nonsteroidal Anti-inflammatory Drug Start: 06-24-2021 End: 01-26-2022 take 81 mg by mouth once daily Aspirin Discontinued 81 MG PO DAILY June 24, 2021 12:00am January 26, 2022 9:07am Nirmatrelvir-Ritonav ir (2 sources) Start: 04-11-2022 End: 05-13-2022 Nirmatrelvir-Riton avir (Paxlovid (Eua)) 300 mg (150 mg x 2)-100 mg tablet Discontinued 0 PO .COMPLEX April 11, 2022 12:00am May 13, 2022 8:18am take TWO 150 mg tablets of nirmatrelvir with ONE 100 mg tablet of ritonavir twice daily for 5 days PO Problems Active Problems Problem Classification Problem Date Documented Da te Episodic/Chronic Biliary tract disease (4 sources) Calculus of gallbladder with cholecystitis; Translations: [Calculus of gallbladder with chronic cholecystitis without obstruction] Episodic Other gastrointestinal disorders (1 source) Diarrhea, unspecified; Translations: [Diarrhea, unspecified] Onset: 01-21-2025 Episodic Other skin disorders (2 sources) Disorder of skin of upper limb; Translations: [Disorder of the skin and subcutaneous tissue, unspecified] Episodic Other skin disorders (2 sources) Disorder of the skin and subcutaneous tissue, unspecified; Translations: [Unspecified disorder of skin and subcutaneous tissue] Episodic Pancreatic disorders (not diabetes) (4 sources) Gallstone pancreatitis; Translations: [Biliary acute pancreatitis without necrosis or infection] Episodic Residual codes; unclassified (4 sources) History of colonoscopy; Translations: [Other specified postprocedural states] Episodic Viral infection (4 sources) Disease caused by 2019-nCoV; Translations: [COVID-19] Episodic Past or Other Problems Problem Classification Problem Date Documented Da te Episodic/Chronic Other connective tissue disease (1 source) Pain in right foot; Translations: [Pain in right foot] Onset: 08-02-2024 Episodic Other nervous system disorders (1 source) Tremor, unspecified; Translations: [Tremor, unspecified] Onset: 05-25-2024 Episodic Other screening for suspected conditions (not mental disorders or infectious disease) (5 sources) Patient encounter status; Translations: [Encounter for screening for malignant neoplasm of colon] Onset: 08-07-2024 Episodic Results Test Name Value Interpretation Reference Range Facil ity Ova and Parasites 8623on OP OVA AND PARASITES EXAM, ROUTINE These results were obtained using wet preparation(s) and trichrome stained smear. This test does not include testing for Crytosporidium parvum, Cyclospora, or Microsporidia. One negative specimen does not rule out the possibility of a parasitic infection. TESTING PERFORMED AT [facility]. ORIGINAL REPORT ON FILE IN LAB CONTAINS ADDITIONAL TEST SITE INFORMATION. Ova/Parasite Exam NO OVA, CYSTS, OR PARASITES FOUND. [facility] Comment on above: Performed By: #### M 600.4634, M100.0605, M100.637 #### [facility] [address] [place], [address] ENTERIC PATHOGEN PANEL STOOL on 01-15-2025 EP PANEL Normal Reference Range = Not Detected Not detected for Campylobacter group, Salmonella species, Shigella species, Vibrio Group, Yersinia enterocolitica, EHEC (Shiga Toxin 1, Shiga Toxin 2), Norovirus Gl/Gll, and Rotavirus A. Other common stool pathogens are not detected on this panel include: Aeromonas/Plesiomonas or parasites. Order testing for these organisms separately if suspected. This is an amplified DNA test which makes it both specific and sensitive. CAMPYLOBACTER Not Detected Norovirus Not Detected Rotavirus Not Detected Salmonella Not Detected Shiga Toxin Not Detected Shigella sp. Not Detected VIBRIO Not Detected Yersinia Not Detected Normal [facility] Comment on above: Performed By: #### M 600.5000, M100.0605, M100.637 #### [facility] [address] [place], [address] Stool Lactoferrin/WBCon WBCST Normal Reference Range = Negative Fecal WBC Lactoferrin Negative: No Fecal WBC Lactoferrin present Normal [facility] Comment on above: Performed By: #### M 600.5000, M100.0605, M100.637 #### [facility] [address] [place], [address] SCRN MAMM (CAD)W/ALYSSA BILATo n 07-11-2024 SCRN MAMM (CAD)W/ALYSSA BILAT [facility] Services [address] [place] [address] SCRN MAMM (CAD)W/ALYSSA BILAT MR#: [id number] Acct: [id number] Name: ADRIANNA CARD Rep #: [id number] : 1960 F 64 From: Jimbo bailey MD PCP: Dr. Mary Ann Rodríguez MD Status: REG CLI Study: SCRN MAMM (CAD)W/ALYSSA BILAT Date of Exam: 12/03 Exam# [id number] Ordering Dr: Mary Ann Rodríguez MD [id number] MAMMOGRAPHY - BILATERAL SCREENING REASON FOR EXAM: Female, 64 years old. Routine annual screening examination. PERTINENT HISTORY: Aunt with breast cancer. TECHNIQUE: Digital bilateral breast alyssa (3D mammographic acquisition) in the CC and MLO projections. 2-D mediolateral oblique (MLO) and craniocaudad (CC) views of both breasts were obtained. CAD: Full Field Digital Mammography with Computer Added Detection was performed. COMPARISON: Comparison is made with prior study of February 22, 2023 and February 17, 2022. FINDINGS: Breast Composition: There are scattered areas of fibroglandular density. There are no dominant masses or suspicious calcifications. Stable small benign-appearing bilateral axillary lymph nodes. Stable 5 mm well-defined nodule in the axillary region of the left breast suggestive of a small lymph node. No other significant abnormalities are identified. There has been no significant change since the prior study. BI/SCRN MAMM (CAD)W/ALYSSA BILAT IMPRESSION: Stable bilateral screening mammogram. Yearly follow-up mammogram recommended. (A) ASSESSMENT CATEGORY: BIRADS Category 2: Benign. A letter regarding these results will be sent to the patient by the facility within 30 days. Approximately 10% of breast cancers are not detected by mammography. A normal mammogram should not delay biopsy of a clinically suspicious abnormality. [id number] Electronically Signed: Jimbo Blas MD at 9:40 EDT , CC: Dr. Mary Ann Rodríguez MD Wood Borer: Signed Normal [facility] CBC W/Diff, Automatedon 06-11 Absolute Lymph 2.67 X10 3/uL Normal 0.83-4.51 [facility] Comment on above: Performed By: #### L 100.0100, L501.1400 #### [facility] [address] [place], [address] Absolute Neut 4.1 X10 3/uL Normal 2.0-7.7 [facility] Comment on above: Performed By: #### L 100.0100, L501.1400 #### [facility] [address] [place], [address] Basophils/100 WBC (Bld) 0.9 % Normal 0-1 [facility] Comment on above: Performed By: #### L 100.0100, L501.1400 #### [facility] [address] [place], [address] Eosinophils/100 WBC (Bld) 2.8 % Normal 0-5 [facility] Comment on above: Performed By: #### L 100.0100, L501.1400 #### [facility] [address] [place], [address] Erythrocyte distribution width (RBC) [Ratio] 12.7 % Normal 11.6-14.6 [facility] Comment on above: Performed By: #### L 100.0100, L501.1400 #### [facility] [address] [place], [address] Hematocrit (Bld) [Volume fraction] 44.4 % Normal 37-47 [facility] Comment on above: Performed By: #### L 100.0100, L501.1400 #### [facility] [address] [place], [address] Hemoglobin (Bld) [Mass/Vol] 14.2 g/dL Normal 12.0-15.0 [facility] Comment on above: Performed By: #### L 100.0100, L501.1400 #### [facility] [address] [place], [address] IG% 0.400 Normal 0.0-0.9 [facility] Comment on above: Result Comment: IG% - Immature Granulocytes (promyelocytes, myelocytes and metamyelocytes) > 1% indicates that a LEFT SHIFT is Present. Performed By: #### L 100.0100, L501.1400 #### [facility] [address] [place], [address] Lymphocytes/100 WBC (Bld) 35.2 % Normal 19-41 [facility] Comment on above: Performed By: #### L 100.0100, L501.1400 #### [facility] [address] [place], [address] MCH (RBC) [Entitic mass] 28.7 pg Normal 27.0-32.0 [facility] Comment on above: Performed By: #### L 100.0100, L501.1400 #### [facility] [address] [place], [address] MCHC (RBC) [Mass/Vol] 32.0 g/dL Normal 32-36 [facility] Comment on above: Performed By: #### L 100.0100, L501.1400 #### [facility] [address] [place], [address] MCV (RBC) [Entitic vol] 89.7 fL Normal 81-99 [facility] Comment on above: Performed By: #### L 100.0100, L501.1400 #### [facility] [address] [place], [address] Monocytes/100 WBC (Bld) 6.9 % Normal 0-10 [facility] Comment on above: Performed By: #### L 100.0100, L501.1400 #### [facility] [address] [place], [address] Neutrophils/100 WBC (Bld) 53.8 % Normal 47-70 [facility] Comment on above: Performed By: #### L 100.0100, L501.1400 #### [facility] [address] [place], [address] Nucleated RBC (Bld) [#/Vol] 0 10*3/uL Normal 0-5 [facility] Comment on above: Performed By: #### L 100.0100, L501.1400 #### [facility] [address] [place], [address] Platelet mean volume (Bld) [Entitic vol] 10.1 fL Normal 6.2-12.0 [facility] Comment on above: Performed By: #### L 100.0100, L501.1400 #### [facility] [address] [place], [address] Platelets (Bld) [#/Vol] 383 10*3/uL Normal 150-450 [facility] Comment on above: Performed By: #### L 100.0100, L501.1400 #### [facility] [address] [place], [address] RBC (Bld) [#/Vol] 4.95 10*6/uL Normal 4.2-5.4 [facility] Comment on above: Performed By: #### L 100.0100, L501.1400 #### [facility] [address] [place], [address] RDW SD 41.9 fl Normal 35.1-43.9 [facility] Comment on above: Performed By: #### L 100.0100, L501.1400 #### [facility] [address] [place], [address] WBC (Bld) [#/Vol] 7.6 10*3/uL Normal 4.4-11.0 [facility] Comment on above: Performed By: #### L 100.0100, L501.1400 #### [facility] [address] [place], [address] Foot min 3 Viewson 4 Foot min [address] [facility] Imaging Services [address] [place] [address] Foot min 3 Views MR#: [id number] Acct: [id number] Name: ADRIANNA CARD Rep #: [id number] : 1960 F 64 From: Krzysztof Frausto MD PCP: Dr. Mary Ann Rodríguez MD Status: REG CLI Study: Foot min 3 Views Date of Exam: 07/06/24 Exam# [id number] Ordering Dr: Mary Ann Rodríguez MD [id number] EXAM: XR RIGHT FOOT COMPLETE, 3 OR MORE VIEWS CLINICAL INDICATION: PAIN TECHNIQUE: Frontal, lateral and oblique views of the right foot. COMPARISON: No relevant prior studies available. FINDINGS: BONES/JOINTS: Unremarkable. No acute fracture. No subluxation. Normal alignment. Preservation of the joint space. No sclerotic or destructive changes observed. SOFT TISSUES: Unremarkable. No soft tissue swelling or gas. No radiopaque foreign body. RAD/Foot min 3 Views IMPRESSION: Negative right foot x-rays. Electronically Signed: Krzysztof Frausto MD at 0:08 EDT , CC: Dr. Mary Ann Rodríguez MD Wood Borer: Signed Normal [facility] Uric Acidon 07-06-2024 URIC 5.2 mg/dL Normal 2.6-6.0 [facility] Comment on above: Result Comment: The drugs N-Acetylcysteine and Metamizole may falsely depress this assay. Performed By: #### L 100.0100, L501.1400 #### [facility] [address] [place], [address] Office Visit Reporton 2023 Office Visit Report [facility] [address] [place] [address] OFFICE VISIT Date of Service: 05/08/24 MR#: [id number] Acct: [id number] Patient: ADRIANNA CARD Rep #: [id number] : 1960 Provider: ROMEL Landaverde Age/Sex: 63/F Location: [facility] Status: Signed Intake Vital Signs 03/18/23 07:14 Height 5 ft 3 in Intake Visit Reasons: COVID TEST/[facility] EMP Chief Complaint: suture removal left forearm Allergies gabapentin (From Neurontin) Allergy (Severe, Verified 03/18/23 07:12) Other Nurse's Note: Called pt w/ results faxed copy of results to the employee health. Results POC CEPH COV,FluAB,RSV PCR CEPHEID COVID PCR DETECTED Last Edit by María Elena Green MA on 05/08/24 15:45 CEPHEID FLU AB PCR NOT DETECTED FLU A B Last Edit by María Elena Green MA on 05/08/24 15:45 CEPHEID RSV PCR NOT DETECTED Last Edit by María Elena Green MA on 05/08/24 15:45 Assessment and Plan Assessment and Plan Orders: Orders POC Cepheid Covid, FluAB, RSV Today 05/08/24 1651 Date Nain URENA Cosigner Signature: Date (if applicable) CC: Normal [facility] CBC W/Diff, Automatedon 04-10 Absolute Lymph 2.06 X10 3/uL Normal 0.83-4.51 [facility] Comment on above: Performed By: #### L 506.0400, L501.9520, L100.0100 #### [facility] [address] [place], [address] Absolute Neut 3.4 X10 3/uL Normal 2.0-7.7 [facility] Comment on above: Performed By: #### L 506.0400, L501.9520, L100.0100 #### [facility] [address] [place], [address] Basophils/100 WBC (Bld) 1.1 % High 0-1 [facility] Comment on above: Performed By: #### L 506.0400, L501.9520, L100.0100 #### [facility] [address] [place], [address] Eosinophils/100 WBC (Bld) 2.4 % Normal 0-5 [facility] Comment on above: Performed By: #### L 506.0400, L501.9520, L100.0100 #### [facility] [address] [place], [address] Erythrocyte distribution width (RBC) [Ratio] 12.7 % Normal 11.6-14.6 [facility] Comment on above: Performed By: #### L 506.0400, L501.9520, L100.0100 #### [facility] [address] [place], [address] Hematocrit (Bld) [Volume fraction] 42.3 % Normal 37-47 [facility] Comment on above: Performed By: #### L 506.0400, L501.9520, L100.0100 #### [facility] [address] [place], [address] Hemoglobin (Bld) [Mass/Vol] 13.7 g/dL Normal 12.0-15.0 [facility] Comment on above: Performed By: #### L 506.0400, L501.9520, L100.0100 #### [facility] [address] [place], [address] IG% 0.300 Normal 0.0-0.9 [facility] Comment on above: Result Comment: IG% - Immature Granulocytes (promyelocytes, myelocytes and metamyelocytes) > 1% indicates that a LEFT SHIFT is Present. Performed By: #### L 506.0400, L501.9520, L100.0100 #### [facility] [address] [place], [address] Lymphocytes/100 WBC (Bld) 32.9 % Normal 19-41 [facility] Comment on above: Performed By: #### L 506.0400, L501.9520, L100.0100 #### [facility] [address] [place], [address] MCH (RBC) [Entitic mass] 28.9 pg Normal 27.0-32.0 [facility] Comment on above: Performed By: #### L 506.0400, L501.9520, L100.0100 #### [facility] [address] [place], [address] MCHC (RBC) [Mass/Vol] 32.4 g/dL Normal 32-36 [facility] Comment on above: Performed By: #### L 506.0400, L501.9520, L100.0100 #### [facility] [address] [place], [address] MCV (RBC) [Entitic vol] 89.2 fL Normal 81-99 [facility] Comment on above: Performed By: #### L 506.0400, L501.9520, L100.0100 #### [facility] [address] [place], [address] Monocytes/100 WBC (Bld) 8.6 % Normal 0-10 [facility] Comment on above: Performed By: #### L 506.0400, L501.9520, L100.0100 #### [facility] [address] [place], [address] Neutrophils/100 WBC (Bld) 54.7 % Normal 47-70 [facility] Comment on above: Performed By: #### L 506.0400, L501.9520, L100.0100 #### [facility] [address] [place], [address] Nucleated RBC (Bld) [#/Vol] 0 10*3/uL Normal 0-5 [facility] Comment on above: Performed By: #### L 506.0400, L501.9520, L100.0100 #### [facility] [address] [place], [address] Platelet mean volume (Bld) [Entitic vol] 10.0 fL Normal 6.2-12.0 [facility] Comment on above: Performed By: #### L 506.0400, L501.9520, L100.0100 #### [facility] [address] [place], [address] Platelets (Bld) [#/Vol] 335 10*3/uL Normal 150-450 [facility] Comment on above: Performed By: #### L 506.0400, L501.9520, L100.0100 #### [facility] [address] [place], [address] RBC (Bld) [#/Vol] 4.74 10*6/uL Normal 4.2-5.4 [facility] Comment on above: Performed By: #### L 506.0400, L501.9520, L100.0100 #### [facility] [address] [place], [address] RDW SD 41.8 fl Normal 35.1-43.9 [facility] Comment on above: Performed By: #### L 506.0400, L501.9520, L100.0100 #### [facility] [address] [place], [address] WBC (Bld) [#/Vol] 6.3 10*3/uL Normal 4.4-11.0 [facility] Comment on above: Performed By: #### L 506.0400, L501.9520, L100.0100 #### [facility] [address] [place], [address] T4 Free Directon 05-04-2024 T4 FREE DIRECT 1.36 ng/dL Normal 0.76-1.46 [facility] Comment on above: Performed By: #### L 506.0400, L501.9520, L100.0100 #### [facility] [address] [place], [address] Thyroid Stim Hormone (TSH)on 05-04-2024 TSH 0.93 uIU/mL Normal 0.358-3.74 [facility] Comment on above: Performed By: #### L 506.0400, L501.9520, L100.0100 #### [facility] [address] [place], [address] No Panel Informationon 08-03 Hepatitis B Surface Antibody Reactive [facility] Work Phone: Comment on above: Non Reactive: Incons istent with immunity less than <10 mIU/mL Reactive: Consistent with immunity greater than or equal to 10 mIU/mL Laboratory - Microbiology an d Antimicrobial susceptibilityon 04-11-2022 SARS-CoV-2 (COVID-19) RNA GATO+probe Ql (Unsp spec) Detected [facility] Work Phone: No Panel Informationon 04-11 POC Nasal Swab Influenza A,B Not detected [facility] Work Phone: POC Nasal Swab RSV Not detected [facility] Work Phone: Absolute lymphocyte counton 04-02-2022 Lymphocytes Auto (Unsp spec) [#/Vol] 2.33 10*3/uL 0.83-4.51 [facility] Work Phone: Absolute reticulocyte counto n 04-02-2022 Reticulocytes (Bld) [#/Vol] 0.00 10*3/uL 0-5 [facility] Work Phone: Basophil percentageon 2021 Basophil percentage 3.0 mg/dL 2.5-4.9 [facility] Work Phone: Bilirubin [Mass/Vol] 0.20 mg/dL 0.20-1.00 [facility] Work Phone: Comment on above: For patients on eltr ombopag therapy, use of Dimension [place] TBIL is not recommended. Chloride [Moles/Vol] 108 mmol/L 98-107 [facility] Work Phone: Cholesterol [Mass/Vol] 179 mg/dL <200 [facility] Work Phone: Comment on above: <200 mg/dL Desirable 200-240 mg/dL Borderline >240 mg/dL High Risk Glucose [Mass/Vol] 116 mg/dL 74-106 [facility] Work Phone: Comment on above: Fasting Glucose resu lt from 100 to 125 mg/dL suggests IMPAIRED HOMEOSTASIS per A.D.A. criteria. Neutrophils (Bld) [#/Vol] 3.9 10*3/uL 2.0-7.7 [facility] Work Phone: Potassium [Moles/Vol] 3.9 mmol/L 3.5-5.1 [facility] Work Phone: Protein [Mass/Vol] 6.8 g/dL 6.4-8.2 [facility] Work Phone: Sodium [Moles/Vol] 139 mmol/L 136-145 [facility] Work Phone: Triglyceride [Mass/Vol] 289 mg/dL <199 [facility] Work Phone: Comment on above: The drugs N-Acetylcy steine and Metamizole may falsely depress this assay.Serum Triglycerides Reference Interval Normal <150 mg/dL Borderline high 150 - 199 mg/dL High 200 - 499 mg/dL Very High > or = 500 mg/dL WBC (Bld) [#/Vol] 7.0 10*3/uL 4.4-11.0 [facility] Work Phone: Bilirubin Test strip Ql (U)o n 04-02-2022 Bilirubin Ql (U) Negative Negative [facility] Work Phone: Blood erythrocytes count (nu mber/volume)on 04-02-2022 RBC (Bld) [#/Vol] 4.92 10*6/uL 4.2-5.4 [facility] Work Phone: Blood hemoglobin measurement (mass/volume)on 04-02-2022 Hemoglobin (Bld) [Mass/Vol] 14.6 g/dL 12.0-15.0 [facility] Work Phone: Blood platelet mean volumeon 04-02-2022 Platelet mean volume (Bld) [Entitic vol] 10.1 fL 6.2-12.0 [facility] Work Phone: Determination of erythrocyte mean corpuscular volume (MCV)on 04-02-2022 MCV (RBC) [Entitic vol] 89.6 fL 81-99 [facility] Work Phone: Direct bilirubinon 2 Bilirubin.direct [Mass/Vol] 0.07 mg/dL 0.00-0.30 [facility] Work Phone: Hematocrit Auto (Bld) [Volum e fraction]on 04-02-2022 Hematocrit (Bld) [Volume fraction] 44.1 % 37-47 [facility] Work Phone: Ketones Test strip Ql (U)on 04-02-2022 Ketones Ql (U) Negative Negative [facility] Work Phone: Laboratory - Chemistry and C hemistry - challengeon 04-02-2022 ALP [Catalytic activity/Vol] 140 U/L 45-117 [facility] Work Phone: ALT [Catalytic activity/Vol] 28 U/L 13-56 [facility] Work Phone: Cholesterol.total/Cho lesterol in HDL [Mass ratio] 5.40 {ratio} [facility] Work Phone: CO2 [Moles/Vol] 24.0 mmol/L 21.0-32.0 [facility] Work Phone: Globulin (S) [Mass/Vol] 3.4 g/dL 2.2-4.2 [facility] Work Phone: Urea nitrogen/Creatinine [Mass ratio] 15.2 mg/mg 10-20 [facility] Work Phone: Laboratory - Hematology and Cell countson 04-02-2022 Erythrocyte distribution width (RBC) [Entitic vol] 41.4 fL 35.1-43.9 [facility] Work Phone: Erythrocyte distribution width (RBC) [Ratio] 12.6 % 11.6-14.6 [facility] Work Phone: MCH (RBC) [Entitic mass] 29.7 pg 27.0-32.0 [facility] Work Phone: Nucleated RBC/100 WBC (Bld) [Ratio] 0 % 0-5 [facility] Work Phone: MCHC Auto (RBC) [Mass/Vol]on 04-02-2022 MCHC (RBC) [Mass/Vol] 33.1 g/dL 32-36 [facility]: Nitrite Test strip Ql (U)on 04-02-2022 Nitrite Ql (U) Negative Negative [facility] Work Phone: No Panel Informationon 04-02 Estimated GFR (MDRD) Amer 63 mL/min >60 [facility] Work Phone: Comment on above: GFR Calc Estimated GFR (MDRD) Non-Af Amer 52 mL/min >60 [facility] Work Phone: Comment on above: Non- GFR Calc Thyroid Stimulating Hormone (TSH) 0.78 uIU/mL 0.358-3.74 [facility] Work Phone: Platelets bldon 04-02-2022 Platelets (Bld) [#/Vol] 352 10*3/uL 150-450 [facility] Work Phone: Protein Test strip Ql (U)on 04-02-2022 Protein Ql (U) Negative Negative [facility] Work Phone: Segmented neutrophils/100 WB C Auto (Bld)on 04-02-2022 Segmented neutrophils/100 WBC (Bld) 55.0 % 47-70 [facility] Work Phone: Serum or plasma albumin hazel urement (mass/volume)on 04-02-2022 Albumin [Mass/Vol] 3.4 g/dL 3.2-5.0 [facility] Work Phone: Serum or plasma albumin/glob ulin mass ratioon 04-02-2022 Albumin/Globulin [Mass ratio] 1.0 {ratio} 0.9-2.4 [facility] Work Phone: Serum or plasma calcium hazel urement (mass/volume)on 04-02-2022 Calcium [Mass/Vol] 8.6 mg/dL 8.5-10.1 [facility] Work Phone: Serum or plasma cholesterol in HDL measurement (mass/volume)on 04-02-2022 Cholesterol in HDL [Mass/Vol] 33 mg/dL >40 [facility] Work Phone: Comment on above: The drugs N-Acetylcy steine and Metamizole may falsely depress this assay. Reference Range HDL <40 mg/dL Low HDL Cholesterol HDL >or= 60 mg/dL High HDL Cholesterol Serum or plasma cholesterol in VLDL measurement (mass/volume)on 04-02-2022 Cholesterol in VLDL [Mass/Vol] 58 mg/dL 5-40 [facility] Work Phone: Serum or plasma creatinine m easurement (mass/volume)on 04-02-2022 Creatinine [Mass/Vol] 1.12 mg/dL 0.55-1.02 [facility] Work Phone: Comment on above: The validity of the calculated GFR & GFRAA in patients over 70 years has not been determined. Clinical correlation is essential. Serum or plasma low density lipoprotein (LDL) cholesterol measurement (mass/volume)on 04-02-2022 Cholesterol in LDL [Mass/Vol] 88 mg/dL 0-130 [facility] Work Phone: Serum or plasma urea nitroge n measurement (mass/volume)on 04-02-2022 Urea nitrogen [Mass/Vol] 17 mg/dL 7-18 [facility] Work Phone: Serum or plasma uric acid me asurement (mass/volume)on 04-02-2022 Urate [Mass/Vol] 5.3 mg/dL 2.6-6.0 [facility] Work Phone: Comment on above: The drugs N-Acetylcy steine and Metamizole may falsely depress this assay. Thin prep Papanicolaou smear with manual screeningon 04-02-2022 Thin prep Papanicolaou smear with manual screening 17 U/L 15-37 [facility] Work Phone: Thin prep Papanicolaou smear with manual screening 7 5-15 [facility] Work Phone: Thin prep Papanicolaou smear with manual screening 197 U/L 84-246 [facility] Work Phone: Urine blood detectionon 03-11 RBC Ql (U) Negative Negative [facility] Work Phone: Urine clarityon 04-02-2022 Clarity (U) Clear Clear [facility] Work Phone: Urine color determinationon 04-02-2022 Color (U) Yellow Yellow [facility] Work Phone: Urine glucose detectionon Glucose Ql (U) Normal mg/dl Normal [facility] Work Phone: Urine leukocyte esterase det ection by dipstickon 04-02-2022 Leukocyte esterase Test strip Ql (U) 25 /ul Negative [facility] Work Phone: Urine pHon 04-02-2022 pH (U) 6.0 [pH] 5.0 - 8.0 [facility] Work Phone: Urine specific gravity measu rementon 04-02-2022 Specific gravity (U) [Rel density] 1.025 1.002-1.030 [facility] Work Phone: Urobilinogen Auto test strip Ql (U)on 04-02-2022 Urobilinogen Ql (U) Normal mg/dl Normal [facility] Work Phone: No Panel Informationon 12-10 Hepatitis B Surface Antibody Non-Reactive [facility] Work Phone: Comment on above: Non Reactive: Incons istent with immunity less than <10 mIU/mL Reactive: Consistent with immunity greater than or equal to 10 mIU/mL Rubella IgG Antibody Reactive Nonreactive [facility] Work Phone: Comment on above: Antibody Results Int erpretation of Immune Status Non Reactive Presumed Non-Immune Equivocal Equivocal Reactive Presumed Immune Serum measles virus IgG anti body assay (units/volume)on 12-10-2021 MeV IgG Qn (S) > 300.0 AU/mL Immune >16.4 [facility] Work Phone: Comment on above: Negative <13.5 Equiv ocal 13.5 - 16.4 Positive >16.4Presence of antibodies to Rubeola is presumptive evidenceof immunity except when acute infection is suspected.Performed at: [facility] [id number] Director: Jlusi Vazquez PhD, Phone: [phone] Serum mumps virus IgG antibo dy assay (units/volume)on 12-10-2021 MuV IgG Qn (S) < 9.0 AU/mL Immune >10.9 [facility] Work Phone: Comment on above: Negative <9.0 Equivo bladimir 9.0 - 10.9 Positive >10.9A positive result generally indicates past exposure toMumps virus or previous vaccination. CNOVon 12-24-2018 CNOV Office Visit (WSTR ) ADRIANNA CARD ([id number]) 1960 F Date Time Provider Department 12/24/18 10:45 AM ANDREW FREEMAN (KAYLIE) [facility] During your visit today, we recorded the following information about you: Temperature Pulse Respiration Blood pressure 101 degrees 108/minute 16/minute 111/88 Weight 81.6 kg Andrew Freeman APRN.CNP 12/24/2018 3:16 PM Signed Subjective HPI HPI Adrianna Clarke Abram is a 58 year old female who presents today for CC of cough, fever, body aches. This started 2 days ago. Has tried otc medication. Symptoms are worsened by nothing. 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 Denies hx of renal disease .Patient presents with: Cough: chest congestion and some SOB x 2 days Sinus Problem: sinus pressure/drainage,sor e throat and headache x 2 days body aches: x 2 days PAST MEDICAL HISTORY Diagnosis Date - Abnormal glandular Papanicolaou smear of cervix Abn. Pap smear (cervix) - Hypothyroidism PAST SURGICAL HISTORY Procedure Laterality Date - COLONOSCOP W/ OR W/O [facility] SPEC 05/21/11 - PAST SURGICAL HISTORY OF 1988 hysterectomy partial - PAST SURGICAL HISTORY OF 2004 completion hysterectomy and cyst removal ALLERGIES Elastic MEDICATIONS metFORMIN (GLUCOPHAGE) 500 mg tablet levothyroxine (SYNTHROID) 112 mcg tablet TAKE 1 TABLET BY MOUTH EVERY DAY IN THE MORNING on an empty stomach Cholecalciferol, Vitamin D3, 1,000 unit cap Take 1 capsule by mouth once daily. levothyroxine 125 mcg tablet Take 1 tablet by mouth daily before breakfast. Skip Sundays. Aspirin 81 mg Tab Take 1 tablet by mouth once daily. Take with food. oxyCODONE-acetaminoph en (PERCOCET) 5-325 mg tablet Take 1 tablet by mouth every 4 hours as needed. FAMILY HISTORY Problem Relation Age of Onset - Allergies Mother - Allergies Sister - Allergies Brother - Alzheimer's Disease Maternal Grandmother - Diabetes Sister - Diabetes Mother - Diabetes Father - Arthritis Brother - Arthritis Sister scleraderma, auto immune deficiency, lupus - Arthritis Father - Arthritis Mother - Asthma Brother - Colon Cancer Paternal Grandmother age 55 - Heart Sister unknown cardiac problem - Hypertension Mother - Hypertension Father - Lipids Mother - Lipids Father - Thyroid Sister hypothyroidism - Thyroid Daughter hypothyroidism Social History Tobacco Use - Smoking status: Former Smoker Packs/day: 0.40 Years: 10.00 Pack years: 4.00 Last attempt to quit: 01/10/2012 Years since quittin.9 - Smokeless tobacco: Never Used Substance Use Topics - Alcohol use: No - Drug use: No Review of Systems Constitutional: Negative for fever. HENT: Positive for congestion and sore throat. Negative for ear pain and nosebleeds. Respiratory: Positive for cough. Negative for shortness of breath and wheezing. Musculoskeletal: Negative for neck pain. Objective Blood pressure 111/88, pulse 108, temperature (!) 38.3 ?C (101 ?F), temperature source Tympanic, resp. rate 16, weight 81.6 kg (180 lb), SpO2 92 %. Physical Exam Constitutional: She is oriented to person, place, and time and well-developed, well-nourished, and in no distress. Non-toxic appearance. She does not have a sickly appearance. No distress. HENT: Head: Normocephalic and atraumatic. Right Ear: Hearing, tympanic membrane, external ear and ear canal normal. Left Ear: Hearing, tympanic membrane, external ear and ear canal normal. Nose: Nose normal. Mouth/Throat: Uvula is midline, oropharynx is clear and moist and mucous membranes are normal. Eyes: Pupils are equal, round, and reactive to light. Conjunctivae and lids are normal. Right eye exhibits no discharge. Left eye exhibits no discharge. No scleral icterus. Neck: Trachea normal and normal range of motion. Neck supple. Cardiovascular: Normal rate, regular rhythm and normal heart sounds. Pulmonary/Chest: Effort normal. She has decreased breath sounds in the right lower field and the left lower field. Lungs clear after nebulizer treatment Lymphadenopathy: She has no cervical adenopathy. Neurological: She is alert and oriented to person, place, and time. Skin: No rash noted. She is not diaphoretic. ASSESSMENT/PLAN: 1. Pneumonia of right upper lobe due to infectious organism (HCC) - ICD9: 486, ICD10: J18.1 (primary diagnosis) - Discussed supportive care, given educational handout - Limit exposure to smoke and other inhaled irritants - Discussed possible red flags and when to seek medical attention - Follow up with pcp in 3-5 days -If you experience chest pain/shortness of breath go to ER - AZITHROMYCIN 250 MG TABLET - AMOXICILLIN 875 MG-POTASSIUM CLAVULANATE 125 MG TABLET 2. Cough - ICD9: 786.2, ICD10: R05 Improvement in patient symptoms and in breath sounds after nebulizer treamtnet - ALBUTEROL SULFATE 2.5 MG/3 ML (0.083 %) SOLUTION FOR NEBULIZATION - XR CHEST 2V FRONTAL/LAT - Dictated by : TANNER ECKERT MD Impression IMPRESSION: Right upper lobe infiltrate. Follow-up chest radiograph to document resolution of this finding may be helpful. - FLU A/B B/O - negative Prescription instructions reviewed with patient as applicable. Patient advised if symptoms do not improve or if symptoms worsen sooner, to contact the office for further evaluation by their primary care physician. Potential red flag symptoms discussed with the patient. Reviewed appropriate action plan to take if red flag symptoms occur. Patient agreeable to treatment plan. Andrew Freeman APRN.KAYLIE Larose Ma 12/24/2018 11:56 AM Signed 2.5 solution aerosol treatment given per doctor's orders. Prior to treatment O2 Sat is 92%. Treatment completed. O2 sat is 95%. Tolerated well. Andrew Freeman APRN.KAYLIE 12/24/2018 12:54 PM Signed GENERAL INFORMATION: Pneumonia is a lung infection caused by bacteria, viruses, or bacteria-like germs. It usually cannot be spread to other people. INSTRUCTIONS: 1. If you are given a prescription for antibiotics, take them as ordered by your doctor until they are all gone. 2. Use a cool-mist humidifier or vaporizer to increase air moisture. This will make it easier for you to breathe. Do not use hot steam. 3. Rest in until your temperature is normal (98.6 F or 37 C) and your chest pain and shortness of breath are gone. 4. Slowly restart your normal activities. You may feel weak and tired for up to six weeks. 5. Drink at least one glass of water or other liquid every hour. This will help thin sputum and make it easier to cough up. 6. If you have chest pain, applying a heating pad or warm compresses for 10 to 20 minutes several times a day to the painful area may lessen the pain. 7. Take several deep breaths and then cough frequently during the day. This will help get rid of the infection. 8. You may take medicines that you can buy without a prescription to treat pain and fever. Use cough medicine only if absolutely necessary as coughing helps clear the infection. CONTACT YOUR DOCTOR IF: 1. Your temperature is over 102 F (39 C). 2. Your chest pain, fever or chills do not get better with medicine in 2-3 days. 3. You develop nausea, vomiting or diarrhea. 4. You are coughing up large amounts of bloody sputum. 5. You have any problems that may be related to the medicine that you are taking (such as rash, itching, swelling, or stomach pain). RETURN TO THE EMERGENCY DEPARTMENT IF: 1. You have a lot of trouble breathing or you have dark or bluish fingernails, toenails, or skin. 2. You have a severe headache, neck stiffness, or feel confused. Referring Provider: SELF [[id number]] Allergies As of Date: 12/24/2018 Noted Allergy Reaction ELASTIC 09/19/2012 2 - Rash Comments: Patient gets rash from elastic on socks Date Reviewed: 12/24/2018 Reviewed by: Kayce Torrez Instructor Pilot - Fully Assessed Reason for Visit: Cough [28] Cmt: chest congestion and some SOB x 2 days Sinus Problem [99] Cmt: sinus pressure/drainage,sor e throat and headache x 2 days body aches [Other] Cmt: x 2 days Primary Visit Diagnosis:Pneumonia of right upper lobe due to infectious organism (HCC) [J18.1] Other Visit Diagnosis:Cough [R05] Order(s):[] albuterol 2.5 mg /3 mL (0.083 %) 2.5 mg (PROVENTIL)Disp: Rfl: XR CHEST 2V FRONTAL/LAT [[id number]] Order #: [id number]. #:[id number] FLU A/B B/O [[id number]] Order #: [id number] azithromycin (ZITHROMAX Z-DOMENIC) 250 mg tabletTake 2 tablets day one, then, 1 tablet daily until gone.Disp: 1 PackageRfl: 0 amoxicillin-clavulani c acid (AUGMENTIN) 875-125 mg per tabletTake 1 tablet by mouth twice daily for 10 days.Disp: 20 tabletRfl: 0 Prescriptions as of 12/24/2018 Sig: METFORMIN 500 MG TABLET LEVOTHYROXINE 112 MCG TABLET TAKE 1 TABLET BY MOUTH EVERY * CHOLECALCIFEROL (VITAMIN D3) * Take 1 capsule by mouth once * AZITHROMYCIN 250 MG TABLET Take 2 tablets day one, then,* AMOXICILLIN 875 MG-POTASSIUM * Take 1 tablet by mouth twice * LEVOTHYROXINE 125 MCG TABLET Take 1 tablet by mouth daily * Patient not taking: Reported on 12/24/2018 ASPIRIN 81 MG TABLET Take 1 tablet by mouth once d* OXYCODONE-ACETAMINOPH EN 5 MG-* Take 1 tablet by mouth every * Problem List As Of Date 12/24/2018 Noted Resolved Cigarette Smoker [F17.210] INVALID FOR* Pneumonia [J18.9] INVALID FOR* Low Back Pain [M54.5] INVALID FOR* More... More... Routine Gynecological Examination [Z01.419] INVALID FOR* Class: Chronic More... Abdominal pain [R10.9] INVALID FOR* Abdominal pain, unspecified site [R10.9] INVALID FOR* Benign neoplasm of colon [D12.6] INVALID FOR* Hypothyroidism [E03.9] INVALID FOR* Other instructions from your clinician: GENERAL INFORMATION: Pneumonia is a lung infection caused by bacteria, viruses, or bacteria-like germs. It usually cannot be spread to other people. INSTRUCTIONS: 1. If you are given a prescription for antibiotics, take them as ordered by your doctor until they are all gone. 2. Use a cool-mist humidifier or vaporizer to increase air moisture. This will make it easier for you to breathe. Do not use hot steam. 3. Rest in until your temperature is normal (98.6 F or 37 C) and your chest pain and shortness of breath are gone. 4. Slowly restart your normal activities. You may feel weak and tired for up to six weeks. 5. Drink at least one glass of water or other liquid every hour. This will help thin sputum and make it easier to cough up. 6. If you have chest pain, applying a heating pad or warm compresses for 10 to 20 minutes several times a day to the painful area may lessen the pain. 7. Take several deep breaths and then cough frequently during the day. This will help get rid of the infection. 8. You may take medicines that you can buy without a prescription to treat pain and fever. Use cough medicine only if absolutely necessary as coughing helps clear the infection. CONTACT YOUR DOCTOR IF: 1. Your temperature is over 102 F (39 C). 2. Your chest pain, fever or chills do not get better with medicine in 2-3 days. 3. You develop nausea, vomiting or diarrhea. 4. You are coughing up large amounts of bloody sputum. 5. You have any problems that may be related to the medicine that you are taking (such as rash, itching, swelling, or stomach pain). RETURN TO THE EMERGENCY DEPARTMENT IF: 1. You have a lot of trouble breathing or you have dark or bluish fingernails, toenails, or skin. 2. You have a severe headache, neck stiffness, or feel confused. Visit Notes: >> Gilma Morgan Dec 24, 2018 11:55 AM Status: Signed 2.5 solution aerosol treatment given per doctor's orders. Prior to treatment O2 Sat is 92%. Treatment completed. O2 sat is 95%. Tolerated well. Prescriptions ordered this encounter Disp Refills Start End ALBUTEROL SULFATE 2.5 MG/3 ML (0.083* 12/24/2018 12/24/2018 Route: INHALATION AZITHROMYCIN 250 MG TABLET 1 Pa* 0 12/24/2018 12/29/2018 Sig: Take 2 tablets day one, then, 1 tablet daily until gone. AMOXICILLIN 875 MG-POTASSIUM CLAVULA* 20 t* 0 12/24/2018 01/03/2019 Route: ORAL Sig: Take 1 tablet by mouth twice daily for 10 days. Encounter Status:Closed by ANDREW FREEMAN CNP on 12/24/18 Normal [facility] PROGRESSon 12-24-2018 Protein mass conc HNO ID: [id number] Author: Emiliana Lord Service: ? Author Type: ? Type: Progress Notes Filed: 12/24/2018 12:11 PM Note Text: Radiology Service Progress Note PATIENT NAME: Adrianna Card DATE OF SERVICE: December 24, 2018 TIME: 12:05 PM PATIENT IDENTITY VERIFICATION COMPLETED USING TWO (2) METHODS: Patient confirmed name verbally and Date of . PATIENT GENDER DATA: Female. status: : No status: NO. PATIENT RELEVANT IMPLANT DATA REVIEWED: Not Applicable RADIOLOGY DEPARTMENT: General X-ray: Exam(s) Completed: Chest X-Ray PERIPHERAL IV DATA: Not applicable SIGNED BY: Emiliana Lord December 24, 2018 12:[address] [facility] Protein mass conc HNO ID: [id number] Author: Andrew Freeman Service: ? Author Type: Nurse Practitioner Type: Progress Notes Filed: 12/24/2018 3:16 PM Note Text: Subjective HPI HPI Adrianna Card is a 58 year old female who presents today for CC of cough, fever, body aches. This started 2 days ago. Has tried otc medication. Symptoms are worsened by nothing. 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 Denies hx of renal disease .Patient presents with: Cough: chest congestion and some SOB x 2 days Sinus Problem: sinus pressure/drainage,sor e throat and headache x 2 days body aches: x 2 days PAST MEDICAL HISTORY Diagnosis Date - Abnormal glandular Papanicolaou smear of cervix Abn. Pap smear (cervix) - Hypothyroidism PAST SURGICAL HISTORY Procedure Laterality Date - COLONOSCOP W/ OR W/O [facility] SPEC 05/21/11 - PAST SURGICAL HISTORY OF 1988 hysterectomy partial - PAST SURGICAL HISTORY OF 2004 completion hysterectomy and cyst removal ALLERGIES [employer] MEDICATIONS metFORMIN (GLUCOPHAGE) 500 mg tablet levothyroxine (SYNTHROID) 112 mcg tablet TAKE 1 TABLET BY MOUTH EVERY DAY IN THE MORNING on an empty stomach Cholecalciferol, Vitamin D3, 1,000 unit cap Take 1 capsule by mouth once daily. levothyroxine 125 mcg tablet Take 1 tablet by mouth daily before breakfast. Skip Sundays. Aspirin 81 mg Tab Take 1 tablet by mouth once daily. Take with food. oxyCODONE-acetaminoph en (PERCOCET) 5-325 mg tablet Take 1 tablet by mouth every 4 hours as needed. FAMILY HISTORY Problem Relation Age of Onset - Allergies Mother - Allergies Sister - Allergies Brother - Alzheimer's Disease Maternal Grandmother - Diabetes Sister - Diabetes Mother - Diabetes Father - Arthritis Brother - Arthritis Sister scleraderma, auto immune deficiency, lupus - Arthritis Father - Arthritis Mother - Asthma Brother - Colon Cancer Paternal Grandmother age 55 - Heart Sister unknown cardiac problem - Hypertension Mother - Hypertension Father - Lipids Mother - Lipids Father - Thyroid Sister hypothyroidism - Thyroid Daughter hypothyroidism Social History Tobacco Use - Smoking status: Former Smoker Packs/day: 0.40 Years: 10.00 Pack years: 4.00 Last attempt to quit: 01/10/2012 Years since quittin.9 - Smokeless tobacco: Never Used Substance Use Topics - Alcohol use: No - Drug use: No Review of Systems Constitutional: Negative for fever. HENT: Positive for congestion and sore throat. Negative for ear pain and nosebleeds. Respiratory: Positive for cough. Negative for shortness of breath and wheezing. Musculoskeletal: Negative for neck pain. Objective Blood pressure 111/88, pulse 108, temperature (!) 38.3 ?C (101 ?F), temperature source Tympanic, resp. rate 16, weight 81.6 kg (180 lb), SpO2 92 %. Physical Exam Constitutional: She is oriented to person, place, and time and well-developed, well-nourished, and in no distress. Non-toxic appearance. She does not have a sickly appearance. No distress. HENT: Head: Normocephalic and atraumatic. Right Ear: Hearing, tympanic membrane, external ear and ear canal normal. Left Ear: Hearing, tympanic membrane, external ear and ear canal normal. Nose: Nose normal. Mouth/Throat: Uvula is midline, oropharynx is clear and moist and mucous membranes are normal. Eyes: Pupils are equal, round, and reactive to light. Conjunctivae and lids are normal. Right eye exhibits no discharge. Left eye exhibits no discharge. No scleral icterus. Neck: Trachea normal and normal range of motion. Neck supple. Cardiovascular: Normal rate, regular rhythm and normal heart sounds. Pulmonary/Chest: Effort normal. She has decreased breath sounds in the right lower field and the left lower field. Lungs clear after nebulizer treatment Lymphadenopathy: She has no cervical adenopathy. Neurological: She is alert and oriented to person, place, and time. Skin: No rash noted. She is not diaphoretic. ASSESSMENT/PLAN: 1. Pneumonia of right upper lobe due to infectious organism (HCC) - ICD9: 486, ICD10: J18.1 (primary diagnosis) - Discussed supportive care, given educational handout - Limit exposure to smoke and other inhaled irritants - Discussed possible red flags and when to seek medical attention - Follow up with pcp in 3-5 days -If you experience chest pain/shortness of breath go to ER - AZITHROMYCIN 250 MG TABLET - AMOXICILLIN 875 MG-POTASSIUM CLAVULANATE 125 MG TABLET 2. Cough - ICD9: 786.2, ICD10: R05 Improvement in patient symptoms and in breath sounds after nebulizer treamtnet - ALBUTEROL SULFATE 2.5 MG/3 ML (0.083 %) SOLUTION FOR NEBULIZATION - XR CHEST 2V FRONTAL/LAT - Dictated by : TANNER ECKERT MD Impression IMPRESSION: Right upper lobe infiltrate. Follow-up chest radiograph to document resolution of this finding may be helpful. - FLU A/B B/O - negative Prescription instructions reviewed with patient as applicable. Patient advised if symptoms do not improve or if symptoms worsen sooner, to contact the office for further evaluation by their primary care physician. Potential red flag symptoms discussed with the patient. Reviewed appropriate action plan to take if red flag symptoms occur. Patient agreeable to treatment plan. Andrew Freeman APRN.TRANSFORMER MOLDER Normal [facility] XR CHEST 2V FRONTAL/LATon XR CHEST 2V FRONTAL/LAT * * *Final Report* * * DATE OF EXAM: Dec 24 2018 12:11PM WOX [id number] - XR CHEST 2V FRONTAL/LAT / PROCEDURE REASON: Cough * * * * Physician Interpretation * * * * EXAMINATION: CHEST RADIOGRAPH (2 VIEW FRONTAL and LATERAL) CLINICAL HISTORY: Cough MQ: XC2_5 Comparison: April 21, 2010 RESULT: Lines, tubes, and devices: None. Lungs and pleura: Right upper lobe infiltrate. No effusion or pneumothorax identified. Cardiomediastinal silhouette: Normal cardiomediastinal silhouette. Other: . IMPRESSION: Right upper lobe infiltrate. Follow-up chest radiograph to document resolution of this finding may be helpful. Wood Borer: PSCB Transcribe Date/Time: Dec 24 2018 12:23P Dictated by : TANNER ECKERT MD This examination was interpreted and the report reviewed and electronically signed by: TANNER ECKERT MD on Dec 24 2018 12:24PM EST [id number] Normal [facility] Vital Signs Date Time Vital Sign Value Performing Clinician Faci lity 04-11-2022 11:43-0400 Body height 162.[address] Nayan Donovan Work Phone: [facility] Work Phone: 04-11-2022 11:43-0400 Body mass index (BMI) [Ratio] 31.8 kg/m2 Dr. Nayan Donovan Work Phone: [facility] Work Phone: 04-11-2022 11:43-0400 Body temperature 98.8 [degF] Dr. Nayan Donovan Work Phone: [facility] Work Phone: 04-11-2022 11:43-0400 Body weight 84.[address] Nayan Donovan Work Phone: [facility] Work Phone: 04-11-2022 11:43-0400 Diastolic blood pressure 60 mm[Hg] Dr. Nayan Donovan Work Phone: [facility] Work Phone: 04-11-2022 11:43-0400 Heart rate 82 /min Dr. Nayan Donovan Work Phone: [facility] Work Phone: 04-11-2022 11:43-0400 Respiratory rate 18 /min Dr. Nayan Donovan Work Phone: [facility] Work Phone: 04-11-2022 11:43-0400 Systolic blood pressure 110 mm[Hg] Dr. Nayan Donovan Work Phone: [facility] Work Phone: 01-26-2022 09:13-0400 Body height 162.[address] Nayan Donovan Work Phone: [facility] Work Phone: 01-26-2022 09:13-0400 Body mass index (BMI) [Ratio] 30.9 kg/m2 Dr. Nayan Donovan Work Phone: [facility] Work Phone: 01-26-2022 09:13-0400 Body weight 81.[address] Nayan Donovan Work Phone: [facility] Work Phone: 01-26-2022 09:13-0400 Body height 162.[address] Nayan Donovan Work Phone: [facility] Work Phone: 01-26-2022 09:13-0400 Body mass index (BMI) [Ratio] 30.9 kg/m2 Dr. Nayan Donovan Work Phone: [facility] Work Phone: 01-26-2022 09:13-0400 Body weight 81.[address] Nayan Donovan Work Phone: [facility] Work Phone: Encounters Encounter Date Encounter Type Care Provider Facility Start: 01-15-2025 End: 01-15-2025 ambulatory [facility] Facility:[facility] Start: 07-11-2024 End: 07-11-2024 ambulatory [facility] Facility:[facility] Start: 07-06-2024 End: 07-06-2024 ambulatory [facility] Facility:[facility] Start: 05-08-2024 End: [facility] Start: 05-04-2024 End: 05-04-2024 ambulatory [facility] Facility:[facility] Start: 08-03-2022 End: 08-03-[address] Nayan Donovan Work Phone: [facility] Work Phone: Start: 08-03-2022 End: 08-03-[address] Nayan Donovan Work Phone: [facility] Start: 05-19-2022 End: 05-19-[address] Nayan Donovan Work Phone: [facility] Start: 05-13-2022 End: 05-13-[address] [facility] Start: 05-13-2022 End: 05-13-[address] Nayan Donovan Work Phone: [facility] Start: 04-11-2022 End: 04-11-[address] Nayan Donovan Work Phone: [facility] Start: 04-02-2022 End: 04-02-[address] [facility] Start: 02-17-2022 End: 02-17-[address] Nayan Donovan Work Phone: [facility] Start: 01-26-2022 Non-patient / Non-visit Dr. Jorge Donovan Work Phone: [facility] Start: 12-10-[address] Nayan Donovan Work Phone: [facility] Start: 12-10-[address] Nayan Donovan Work Phone: [facility] Start: 12-24-2018 End: 12-26-2018 Patient encounter procedure MORALES ([place]) [facility] Start: 12-24-2018 End: 12-26-2018 Patient encounter procedure ANDREW [facility] Procedures Date Procedure Procedure Detail Performing Clinician Start: 02-17-2022 Screening mammography Piper Donovan Work Phone: Immunizations Immunization Date Immunization Notes Care Provider Sudhir field 07-09-2022 influenza, seasonal, injectable Dr. Nayan Donovan Work Phone: [facility] Work Phone: 06-21-2022 hepatitis B vaccine, adult dosage Dr. Nayan Donovan Work Phone: [facility] Work Phone: 01-21-2022 hepatitis B vaccine, adult dosage Dr. Nayan Donovan Work Phone: [facility] Work Phone: 01-21-2022 measles, mumps and rubella virus vaccine Dr. Nayan Donovan Work Phone: [facility] Work Phone: 12-21-2021 hepatitis B vaccine, adult dosage Dr. Nayan Donovan Work Phone: [facility] Work Phone: 12-21-2021 measles, mumps and rubella virus vaccine Dr. Nayan Donovan Work Phone: [facility] Work Phone: 12-10-2021 tetanus toxoid, redu herve diphtheria toxoid, and acellular pertussis vaccine, adsorbed Dr. Nayan Donovan Work Phone: [facility] Work Phone: 01-22-2021 Covid (Moderna) Dr. Nayan thurman Work Phone: [facility] Work Phone: 12-22-2020 Covid (Moderna) Dr. Nayan thurman Work Phone: [facility] Work Phone: Payers Date Payer Category Payer Self-pay [id number] 2024 Unknown [id number] Private Health Insurance [id number] Unknown [facility] [id number] Unknown [id number] Unknown [id number] Unknown [id number] Unknown [id number] Social History Date Type Detail Facility Start: 06-24-2021 End: 05-19-2022 Tobacco smoking status NDIS Unknown if ever smoked [facility] Work Phone: Start: 1960 Sex Assigned At Female [facility] Work Phone: Medical Equipment Procedure Code Equipment Code Equipment Original Text Equipment Identifier Dates Total cholecystectomy with exploration of common bile duct DRESSING,FIBRILLA R 1X2 1961 FDA Start: 06-25-2021 Total cholecystectomy with exploration of common bile duct DRESSING,FIBRILLA R 1X2 1960 FDA Start: 06-25-2021 Total cholecystectomy with exploration of common bile duct DRESSING,FIBRILLA R 1X2 1960 FDA Start: 06-25-2021 Total cholecystectomy with exploration of common bile duct DRESSING,FIBRILLA R 1X2 1960 FDA Start: 06-25-2021 Evaluation note Note Date & Type Note Facility Evaluation note No assessment information availa [facility] Work Phone: Evaluation note Note Date & Type Note Facility Evaluation note Diagnosis Onset Date COVID-19 acute Skin lesion of left arm brendan lockwood [facility] Work Phone: Summary Purpose Family History No Family History Records Found Relationship Condition Age at Onset Recorded Date/T lauren mother Hypertension Unknown Disorder of thyroid Unknown Diabetes mellitus Unknown Cerebrovascular accident (CVA) Unknown Malignant neoplasm of skin Unknown father Hypertension Unknown Parkinson's disease Unknown sister Hypertension Unknown Systemic sclerosis Unknown Congestive heart failure Unknown Advance Directives No Advanced Directives Records Found Advance Directive Response Recorded Date/ Time Advance Directives Yes June 2:11pm Living Will Yes June 24, 2021 5:24pm Power of Sky Cap Yes June 5:24pm Chief Complaint and Reason for Visit Chief Complaint 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 L Amb Documentation SCREENING Chief Complaint Amb Documentation SCREENING Headache, Intermittant Fever, Body Aches, Nausea excision left forearm lesion SKIN LESION L FOREARM Reason for Visit COVID-19 Skin lesion of left arm Chief Complaint Headache, Intermitta nt Fever, Body Aches, Nausea excision left forearm lesion SKIN LESION L FOREARM SUTURE REMOVAL Reason for Visit COVID-19 Skin lesion of left arm Additional Source Comments INFORMATION SOURCE (unrecogn ized section and content) DATE CREATED AUTHOR 12/27/2018 [facility] DATE CREATED AUTHOR AUTHOR'S ORGANIZ ATION 01/23/2025 [facility] Goals (unrecognized section and content) Goals may be documented in a n alternate sectionGoals may be documented in an alternate sectionGoals may be documented in an alternate sectionGoals may be documented in an alternate section FOR RECORDS PERTAINING TO PATIENTS WHO ARE OR HAVE BEEN ENROLLED IN A CHEMICAL DEPENDENCY/SUBSTANCEABUSE PROGRAM, SOME INFORMATION MAY BE OMITTED. This clinical summary was aggregated from multiple sources. Caution should be exercised in using it in the provision of clinical care. This summary normalizes information from multiple sources, and as a consequence, information in this document may materially change the coding, format and clinical context of patient data. In addition, data may be omitted in some cases. CLINICAL DECISIONS SHOULD BE BASED ON THE PRIMARY CLINICAL RECORDS. [email or web address] provides no warranty or guarantee of the accuracy or completeness of information in this document.
== END | disposition home or self-care (01) ==
LOC: BFHLAB 10:01
PROVIDERS: PCP Family Medicine; Visit Provider Family Medicine
DX: E03.9 Hypothyroidism, unspecified (principal); R25.1 Tremor, unspecified
CPT/HCPCS: 36415; 84439; 84443